=== PATIENT | female | born 1945 | race Caucasian/White ===

== ENCOUNTER 2017-11-16 19:11 | Inpatient (IN) | payer OTHER ==
[2017-11-16 19:19] VITALS: BMI 36.6
--- NOTE | 2017-11-16 19:35 | ED PDOC ---
Arrival/HPI - General Chief Complaint: Eye Problem Time Seen by Provider: 11/16/17 19:21 Historian: Patient, Family - History of Present Illness Narrative History of Present Illness (Text): you were treated in the ED today for hx CHF, HTN, HL, having somewhat longstanding decreased vision in the left eye and for the past 1-2 days having had blurry vision with headache then about 1 hour prior to the ED having had a curtain/shade come over the left eye sensation but otherwise without any nausea/ vomiting/dizziness/difficulty breathing/chest pain/abdomen pain/numbness/ tingling/loss of limb function/pain with urination. 11/16/17 19:42 11/16/17 19:47 Time/Duration: Other (for 1-2 days) Past Medical History - Provider Review Nursing Documentation Reviewed: Yes - Travel History Have you recently traveled outside [place] w/in the past 3 mons?: No - Cardiac Hx Hypertension: Yes - Neurological Hx Dizziness: Yes Other/Comment: weakness - Psychiatric Hx Substance Use: No Family/Social History - Physician Review Nursing Documentation Reviewed: Yes Family/Social History: No Known Family HX Smoking Status: Never Smoked Hx Alcohol Use: No Hx Substance Use: No Allergies/Home Meds Allergies/Adverse Reactions: Allergies No Known Allergies Allergy (Unverified 11/16/17 19:29) Home Medications: Home Meds Medication Instructions Recorded Confirmed Aspirin [Aspirin Chewable] 81 mg PO DAILY 11/16/17 11/16/17 Celecoxib [Celebrex] 100 mg PO DAILY 11/16/17 11/16/17 Clopidogrel [Plavix] 75 mg PO DAILY 11/16/17 11/16/17 DULoxetine [Cymbalta] 30 mg PO DAILY 11/16/17 11/16/17 Famotidine [Pepcid] 20 mg PO DAILY 11/16/17 11/16/17 Furosemide [Lasix] 20 mg PO DAILY 11/16/17 11/16/17 Gabapentin [Neurontin] 300 mg PO DAILY 11/16/17 11/16/17 Lisinopril [Zestril] 10 mg PO DAILY 11/16/17 11/16/17 Meloxicam [Mobic] 7.5 mg PO DAILY 11/16/17 11/16/17 Review of Systems - Review of Systems Constitutional: Normal Eyes: Vision Changes ENT: Normal Respiratory: Normal Cardiovascular: Normal Gastrointestinal: Normal Genitourinary Female: Normal Musculoskeletal: Normal Skin: Normal Neurological: Normal Endocrine: Normal Hemo/Lymphatic: Normal Psychiatric: Normal Physical Exam Vital Signs Reviewed: Yes Vital Signs Temp Pulse Resp BP Pulse Ox 11/16/17 21:35 60 17 106/50 L 98 11/16/17 19:26 98.1 F 68 17 114/58 L 98 Temperature: Afebrile Blood Pressure: Normal Pulse: Regular Respiratory Rate: Normal Appearance: Positive for: Well-Appearing, Non-Toxic, Comfortable Pain Distress: None Mental Status: Positive for: Alert and Oriented X 3 - Systems Exam Head: Present: Atraumatic, Normocephalic Pupils: Present: PERRL Extroacular Muscles: Present: EOMI Conjunctiva: Present: Normal Ears: Present: Normal Mouth: Present: Moist Mucous Membranes Pharnyx: Present: Normal Nose (External): Present: Atraumatic Nose (Internal): Present: Normal Inspection Neck: Present: Normal Range of Motion Respiratory/Chest: Present: Clear to Auscultation Cardiovascular: Present: Regular Rate and Rhythm Abdomen: No: Tenderness, Distention, Normal Bowel Sounds, Peritoneal Signs, Rebound, Guarding, McBurney's Point Tender, Rovsing's Sign Present, Hernias, Feeding Tubes, Ostomy Tubes, Mass/Organomegaly, Scars, Other Back: Present: Normal Inspection Upper Extremity: Present: Normal Inspection Lower Extremity: Present: Normal Inspection Neurological: Present: GCS=15, CN II-XII Intact, Speech Normal, Motor Func Grossly Intact Skin: Present: Warm, Normal Color Psychiatric: Present: Alert, Oriented x 3, Normal Insight, Normal Concentration Medical Decision Making ED Course and Treatment: yfaye were treated in the ED today for hx CHF, HTN, HL, having somewhat longstanding decreased vision in the left eye and for the past 1-2 days having had blurry vision with headache then about 1 hour prior to the ED having had a curtain/shade come over the left eye sensation but otherwise without any nausea/ vomiting/dizziness/difficulty breathing/chest pain/abdomen pain/numbness/ tingling/loss of limb function/pain with urination. You were otherwise breathing easily, talking easily with family/daughter/granddaughter, good strength/sensation, clear lungs, no abdomen tenderness, left eye can visualize but blurry and right eye vision intact without foreign body in either eye on magnification, no left sided temporal area discomfort, no fever temp 98.1, stable heart rate 68, stable breathing rate 17, excellent oxygen level 98% room air, stable blood pressure 114/58 which we recommend repeat in 2-3 days primary care office to determine further treatment, you have blood tests no infection count 8, stable blood level hemoglobin 12/platelets 252, stable chemistry, potassium elevated 5.8 and repeat 5.5, bun elevated 69, creatinine elevated 2.2 from prior 1.1, heart blood test negative less than 0.01, radiology ct head shows atrophy and small vessel disease but no acute intracranial abnormality, ECG normal sinus rhythm, observation done in the ED with stability d/w Dr. Coe neurology who stated since having blurry vision in the past 1-2 days with acute worsening about 1 hour prior to ED visit no code stroke at this time but recommends - ct head and cta head/neck with iv contrast. ct head COMPARISON: There are no prior studies for comparison. FINDINGS: Brain: There is prominence of of sulci gyri and ventricles. There is no midline shift. There is decreased attenuation in periventricular white matter. There are no focal masses. There are no focal hemorrhages. Ortiz-white differentiation is visualized. Ventricles: See above. Bones: Cranial vault is intact. Soft tissues: unremarkable Sinuses: There is no acute sinusitis. Ears and mastoids: Middle ears and mastoids are unremarkable. Orbits: Orbital contents are unremarkable. IMPRESSION: Atrophy and small vessel disease, no acute intracranial abnormality 11/16/17 22:58 d/w Dr. Coe who stated MRI/MRA brain without contrast and can consult in the am. Dw Dr. Jones who stated ESR, can admit to telemetry and agreed with kayexalate for k 5.5, mild gentle hydration ivf, MRI/MRA of brain without contrast and neurology evaluation and he will put in ophthalmology evaluation as well in the am. 11/16/17 23:00 11/16/17 23:03 Reassessment Condition: Re-examined, Unchanged - Lab Interpretations Lab Results: 11/16/17 19:59 11/16/17 20:55 Lab Results 11/16/17 20:55: Potassium 5.5 H 11/16/17 19:59: Sodium 140, Potassium 5.8 H*, Chloride 104, Carbon Dioxide 23, Anion Gap 18, BUN 69 H, Creatinine 2.2 H, Est GFR ( Amer) 27, Est GFR ( Non-Af Amer) 22, Random Glucose 128 H, Calcium 9.5, Magnesium 2.0, Total Bilirubin 0.7, AST 36, ALT 26, Alkaline Phosphatase 128 H, Lactate Dehydrogenase 466, Total Creatine Kinase 80, Troponin I < 0.01, Total Protein 7.2, Albumin 4.2, Globulin 3.0, Albumin/Globulin Ratio 1.4 11/16/17 19:59: PT 11.9, INR 1.04, APTT 29.6 11/16/17 19:59: WBC 8.4, RBC 4.06, Hgb 12.3, Hct 37.3, MCV 91.9, MCH 30.3, MCHC 33.0, RDW 13.1, Plt Count 252, MPV 10.8, Gran % 69.6 H, Lymph % (Auto) 23.2, [facility] % (Auto) 5.5, Eos % (Auto) 1.3 L, Baso % (Auto) 0.4, Gran # 5.84, Lymph # ( Auto) 2.0, [facility] # (Auto) 0.5, Eos # (Auto) 0.1, Baso # (Auto) 0.03 I have reviewed the lab results: Yes - RAD Interpretation Narrative RAD Interpretations (Text): 11/16/17 22:16 CT of head reviewed by radiologist, shows: FINDINGS: Brain: There is prominence of of sulci gyri and ventricles. There is no midline shift. There is decreased attenuation in periventricular white matter. There are no focal masses. There are no focal hemorrhages. Ortiz-white differentiation is visualized. Ventricles: See above. Bones: Cranial vault is intact. Soft tissues: unremarkable Sinuses: There is no acute sinusitis. Ears and mastoids: Middle ears and mastoids are unremarkable. Orbits: Orbital contents are unremarkable. IMPRESSION: Atrophy and small vessel disease, no acute intracranial abnormality Radiology Orders: 11/16/17 19:29 HEAD W/O CONTRAST [CT] Stat 11/16/17 22:50 BRAIN WITHOUT CONTRAST [MRI] Stat MRA HEAD WITHOUT CONTRAST [MRI] Stat Relationship Banker: Radiologist - EKG Interpretation Interpreted by ED Physician: Yes (NSR, RBBB) Type: 12 lead EKG - Medication Orders Current Medication Orders: Sodium Chloride (Sodium Chloride 0.9%) 1,000 mls @ 100 mls/hr IV .Q10H [facility] Last Admin: 11/16/17 22:11 Dose: 100 mls/hr eMAR Start Stop Document 11/16/17 22:11 IT (Rec: 11/16/17 22:11 IT [id number]) Intravenous Solution Start Date 11/16/17 Start Time 22:11 Discontinued Medications Acetaminophen (Tylenol 325mg Tab) 975 mg PO STAT STA Stop: 11/16/17 22:47 Aspirin (Aspirin Chewable) 324 mg PO STAT STA Stop: 11/16/17 22:47 Sodium Polystyrene Sulfonate (Kayexalate Susp) 15 gm PO STAT STA Stop: 11/16/17 22:48 Disposition/Present on Arrival - Present on Arrival Any Indicators Present on Arrival: No History of DVT/PE: No History of Uncontrolled Diabetes: No Urinary Catheter: No History of Decub. Ulcer: No History Surgical Site Infection Following: None - Disposition Have Diagnosis and Disposition been Completed?: Yes Diagnosis: Blurred vision, left eye, Hyperkalemia, Renal insufficiency Disposition: HOSPITALIZED Disposition Time: 23:00 Patient Plan: Admission, Telemetry Condition: IMPROVED Referrals: Johnny Jones MD [Primary Care Provider] - Follow up with primary Forms: [employer] (Pashto)
[2017-11-16 20:23] LABS: BASO # 0.03 K/mm3 (0.0-2.0); BASO % 0.4 % (0.0-3.0); EOS # 0.1 (0.0-0.7); EOS % 1.3 % (1.5-5.0); GRAN # 5.84 (1.4-6.5); GRAN % 69.6 % (50.0-68.0); HEMOGLOBIN 12.3 g/dL (12.0-16.0); LYMPH % 23.2 % (22.0-35.0); MEAN CELL VOLUME 91.9 fl (80.0-105.0); MEAN CORPUSCULAR HEMOGLOBIN 30.3 pg (25.0-35.0); MEAN PLATELET VOLUME 10.8 fl (7.0-11.0); MONO # 0.5 (0.1-0.6); MONO % 5.5 % (1.0-6.0); RBC 4.06 10^6/uL (3.5-6.1); RED CELL DISTRIBUTION WIDTH 13.1 % (11.5-14.5); WHITE BLOOD COUNT 8.4 10^3/ul (4.5-11.0)
[2017-11-16 20:29] LABS: INR 1.04 (0.93-1.08); PARTIAL THROMBOPLASTIN TIME 29.6 Seconds (25.1-36.5); PROTHROMBIN TIME 11.9 SECONDS (9.4-12.5)
[2017-11-16 20:42] LABS: ALB/GLOB RATIO 1.4 (1.1-1.8); ALBUMIN 4.2 g/dL (3.0-4.8); ALT/SGPT 26 U/L (7-56); AST/SGOT 36 U/L (14-36); BLOOD UREA NITROGEN 69 mg/dL (7-21); CALCIUM 9.5 mg/dL (8.4-10.5); GFR AFRICAN-AMERICAN 27; GFR NON-AFRICAN AMERICAN 22; TROPONIN I < 0.01 ng/mL
--- NOTE | 2017-11-16 22:09 | CT ---
EXAM: CT Head Without Intravenous Contrast EXAM DATE/TIME: 11/16/2017 7:29 PM CLINICAL HISTORY: 71 years old, female; Signs and symptoms; Dizziness and visual disturbance; Additional info: 71yof, with left eye blurry vision TECHNIQUE: Axial computed tomography images of the head/brain without intravenous contrast. All CT scans at this facility use at least one of these dose optimization techniques: automated exposure control; mA and/or kV adjustment per patient size (includes targeted exams where dose is matched to clinical indication); or iterative reconstruction. Coronal and sagittal reformatted images were created and reviewed. COMPARISON: There are no prior studies for comparison. FINDINGS: Brain: There is prominence of of sulci gyri and ventricles. There is no midline shift. There is decreased attenuation in periventricular white matter. There are no focal masses. There are no focal hemorrhages. Ortiz-white differentiation is visualized. Ventricles: See above. Bones: Cranial vault is intact. Soft tissues: unremarkable Sinuses: There is no acute sinusitis. Ears and mastoids: Middle ears and mastoids are unremarkable. Orbits: Orbital contents are unremarkable. IMPRESSION: Atrophy and small vessel disease, no acute intracranial abnormality
[2017-11-16] MEDS: Sodium Chloride 0.9% 1,000 ML IV SCH (22:11)
[2017-11-16] MEDS ORDERED: Sod Polystyrene Sulf 15 gm/60 ml Susp PO STA (22:47)
[2017-11-17 00:28] LABS: URINE BILIRUBIN NEGATIVE (NEGATIVE); URINE BLOOD NEGATIVE (NEGATIVE); URINE GLUCOSE (UA) NEGATIVE (NEGATIVE); URINE LEUKOCYTE ESTERASE TRACE Leu/uL (NEGATIVE); URINE PROTEIN NEGATIVE mg/dL (<30 mg/dL); URINE UROBILINOGEN 0.2 E.U./dL (<1 E.U./dL)
[2017-11-17 00:31] LABS: URINE APPEARANCE SLIGHT-CLOUDY (CLEAR); URINE COLOR YELLOW (YELLOW)
[2017-11-17 00:48] LABS: URINE RBC NEGATIVE /hpf (0-2); URINE WBC 0 - 2 /hpf (0-6)
[2017-11-17 00:49] LABS: URINE BACTERIA RARE (NEG)
[2017-11-17] MEDS: Sodium Chloride 0.9% 1,000 ML IV SCH ×2 (07:09→10:00)
--- NOTE | 2017-11-17 10:49 | MRI ---
PROCEDURE: MRI BRAIN WITHOUT CONTRAST HISTORY: 71F w left eye blurry vision COMPARISON: None. TECHNIQUE: Multiplanar, multisequence MR images of the brain were obtained without intravenous contrast enhancement. FINDINGS: HEMORRHAGE: None DWI: No evidence of an acute or early subacute infarction. BRAIN PARENCHYMA: No mass effect or edema. No atrophy or chronic microvascular ischemic changes. VENTRICLES: Unremarkable. No hydrocephalus. CRANIUM: Unremarkable. ORBITS: Grossly unremarkable. PARANASAL SINUSES/MASTOIDS: Clear VASCULAR SYSTEM: Skull base flow voids intact. OTHER FINDINGS: None. IMPRESSION: Unremarkable non contrast enhanced MRI of the brain.
--- NOTE | 2017-11-17 10:53 | MRI ---
PROCEDURE: Magnetic Resonance Angiography Brain HISTORY: 71F with left eye blurry vision COMPARISON: None available. TECHNIQUE: 3D time of flight MR angiography of the intracranial arteries was performed. Rotating maximum intensity projection images were generated. FINDINGS: INTERNAL CAROTID ARTERIES: Unremarkable. The skull base, petrous, cavernous and supraclinoid segments are bilaterally widely patient. ANTERIOR CEREBRAL ARTERIES: Unremarkable. A1 and A2 segments are widely patent. Smaller distal branches unremarkable, as visualized. MIDDLE CEREBRAL ARTERIES: Unremarkable. M1 and M2 segments are widely patent. Perisylvian branches grossly symmetric. POSTERIOR CIRCULATION: Basilar Artery: Unremarkable. Distal Vertebral Arteries: Unremarkable. Posterior Cerebral Arteries: Unremarkable. Posterior Inferior Cerebellar Arteries: Unremarkable. ANEURYSM/ VASCULAR MALFORMATIONS: None. OTHER FINDINGS: None. IMPRESSION: Unremarkable MR angiography of the brain.
--- NOTE | 2017-11-17 13:06 | CARD ---
APPROVED REPORT EKG Measurement Heart [id number] <Conclusion> Normal sinus rhythm Right bundle branch block Abnormal ECG
--- NOTE | 2017-11-17 16:20 | CP.PCM.CON ---
History of Present Illness - History of Present Illness History of Present Illness: Neurology Consult Note: Mrs. Martin is a 71-year-old woman with a past medical history of overactive bladder (started on oxybutinin), arthritis, hypertension, CKD, who has bilateral cateracts, and usually has blurry vision, but it has been worse over the last week. It became especially blurry with a "curtain like" decrease in vision yesterday. She presented to the ED and an MRA of the brain did not show any concern for a thrombus. MRI of the brain was unremarkable. She states that since starting the oxybutinin her vision has been getting worse. She complained of a left sided headache as well that has been ongoing for the last week. Review of Systems - Review of Systems All systems: reviewed and no additional remarkable complaints except Past Patient History - Past Social History Smoking Status: Never Smoked - CARDIAC Hx Cardiac Disorders: Yes Hx Congestive Heart Failure: Yes Hx Hypertension: Yes - PULMONARY Hx Respiratory Disorders: No - NEUROLOGICAL Hx Neurological Disorder: Yes (Neuropathy) - HEENT Hx HEENT Problems: Yes (Left eye decreasing vision since 2016) - RENAL Hx Chronic Kidney Disease: No - ENDOCRINE/METABOLIC Hx Endocrine Disorders: No - HEMATOLOGICAL/ONCOLOGICAL Hx Blood Disorders: No - INTEGUMENTARY Hx Dermatological Problems: Yes (left heel old healed ulcer) - MUSCULOSKELETAL/RHEUMATOLOGICAL Hx Musculoskeletal Disorders: Yes Hx Arthritis: Yes Hx Falls: No Hx Unsteady Gait: Yes (uses walker and cane.) - GASTROINTESTINAL Hx Gastrointestinal Disorders: No - GENITOURINARY/GYNECOLOGICAL Hx Genitourinary Disorders: No - PSYCHIATRIC Hx Psychophysiologic Disorder: No Hx Substance Use: No - SURGICAL HISTORY Hx Surgeries: Yes Hx Cholecystectomy: Yes Hx Orthopedic Surgery: Yes (left knee replacement) Meds Allergies/Adverse Reactions: Allergies Allergy/AdvReac Type Severity Reaction Status Date / Time No Known Allergies Allergy Unverified 11/16/17 19:29 - Medications Medications: Current Medications Duloxetine HCl (Cymbalta) 30 mg PO DAILY [facility] Last Admin: 11/17/17 11:42 Dose: 30 mg Famotidine (Pepcid) 20 mg PO DAILY [facility] Last Admin: 11/17/17 11:42 Dose: 20 mg Gabapentin (Neurontin) 300 mg PO DAILY [facility] PRN Reason: Protocol Last Admin: 11/17/17 11:42 Dose: 300 mg Sodium Chloride (Sodium Chloride 0.9%) 1,000 mls @ 100 mls/hr IV .Q10H [facility] Last Admin: 11/17/17 07:09 Dose: Not Given Oxybutynin Chloride (Ditropan Tab) 5 mg PO DAILY [facility] Last Admin: 11/17/17 11:43 Dose: 5 mg Physical Exam - Neurological Exam Neurological exam: Alert, CN II-XII Intact, Normal Gait, Oriented x3, Reflexes Normal Additional comments: Decreased direct and consensual response to light in the left eye. Bilateral cateracts. EOMI, CN 2-12 intact. Results - Vital Signs Recent Vital Signs: Last Vital Signs Temp 97.8 F 11/17/17 12:00 Pulse 85 11/17/17 14:00 Resp 17 11/17/17 12:00 BP 115/58 L 11/17/17 12:00 Pulse Ox 98 11/17/17 06:00 - Labs Result Diagrams: 11/16/17 19:59 11/16/17 20:55 Labs: Laboratory Results - last 24 hr 11/17/17 00:16 Urine Color Yellow Urine Appearance Slight-cloudy Urine pH 6.0 Ur Specific [place] 1.010 Urine Protein Negative Urine Glucose (UA) Negative Urine Ketones Negative Urine Blood Negative Urine Nitrate Negative Urine Bilirubin Negative Urine Urobilinogen 0.2 Ur Leukocyte Esterase Trace H Urine RBC Negative Urine WBC 0 - 2 Ur Epithelial Cells 3 - 4 Urine Bacteria Rare Assessment & Plan (1) Blurred vision, left eye Assessment and Plan: May be related to antimuscarinic effects of oxybutinin. I recommend holding the medication for now. May also be due to chronic disease. Unlikely to be a retinal artery occlusion. I recommend consultation with ophthalmology for a dilated exam. Thank you. Status: Acute
[2017-11-17] MEDS ORDERED: Sod Polystyrene Sulf 15 gm/60 ml Susp PO ONE (20:33)
[2017-11-18] MEDS: Sodium Chloride 0.9% 1,000 ML IV SCH ×4 (00:05→12:05)
[2017-11-18 02:33] LABS: CREATININE,RANDOM URINE 51 mg/dL
[2017-11-18 07:17] LABS: ALB/GLOB RATIO 1.3 (1.1-1.8); ALBUMIN 3.3 g/dL (3.0-4.8); CALCIUM 8.2 mg/dL (8.4-10.5)
--- NOTE | 2017-11-18 08:21 | CON ---
DATE: 11/17/2017 HISTORY OF PRESENT ILLNESS: The patient is a 71-year-old female with history of high blood pressure and high cholesterol. She reports that within the last couple of days, she has noticed a hawk veil or covering to her left eye which was painless. She noticed no issue with her right eye. PHYSICAL EXAMINATION: Her vision in the right eye is about 20/400 near, left eye is count fingers near. She has no pupillary defect. On slit-lamp exam, the right eye has clear cornea, clear anterior chamber, 2+nuclear cataract. She does have appearance of a myopic fundus. The nerve is pink and healthy. Her retina is attached. There is no arterial or venous blockage noted. On her left eye, she has a very large cataract, 2+nuclear sclerotic but 4+posterior subcapsular. Her posterior exam appears within normal limits. Retina appears attached. The vasculature appears within normal limits. Her eye pressure in both eyes are within normal limits. ASSESSMENT: Cataracts, both eyes. Very large cataract in the left eye. PLAN: Once the patient is discharged, the patient will need to be seen in the office. She will most likely need cataract surgery for her left eye to improve the vision. We can also refer her to a retina specialist if there is any issue with the nerve or the blood vessels in the eye. Any questions, you can always call [phone]. Wilman Sr MD
[2017-11-18] MEDS ORDERED: Sodium Chloride 0.9% 250 ML IV STA (11:38)
[2017-11-18] MEDS: Enoxaparin 40 mg Syringe SC SCH (12:04)
--- NOTE | 2017-11-18 13:40 | CP.PCM.CON ---
History of Present Illness - History of Present Illness History of Present Illness: renal consult note cc: anca hpi: hx obtained from daughter as patient non zimbabwean speaking. 71-year-old woman with a past medical history of overactive bladder (started on oxybutinin) , arthritis, hypertension, bilateral cateracts is admitted with blurry vision for over a week. no headache. no prior hx of ckd pe daughter. no edema or sob on admission noted to have anca cr 2.2 and potassium was elevated, has been getting iv fluids and now cr is normal complete ros is negative f/h negative for kidney disease social hx non smoker no alcohol pmh as above exam vss heent normal op moist no jvd skin normal no icterus s1s2 present no resp distress abbd soft obese ao times 3 normal affect A&P: anca/hyperkalemia/htn/vision loss cr is improving, ua unremarkable continue with iv fluids i have ordered a renal USG low potassium diet, she was on lasix and lisinopril at home, recommend stopping lisinopril on discharge continue to hold lasix for now vision issues: per primary team Past Patient History - Past Social History Smoking Status: Never Smoked - CARDIAC Hx Cardiac Disorders: Yes (CO X 2 times ( 1992, 2007)) - PULMONARY Hx Respiratory Disorders: No - NEUROLOGICAL Hx Neurological Disorder: Yes (Neuropathy) - HEENT Hx HEENT Problems: Yes (Left eye decreasing vision since 2016) - RENAL Hx Chronic Kidney Disease: No - ENDOCRINE/METABOLIC Hx Endocrine Disorders: No - HEMATOLOGICAL/ONCOLOGICAL Hx Blood Disorders: No - INTEGUMENTARY Hx Dermatological Problems: Yes (left heel old healed ulcer) - MUSCULOSKELETAL/RHEUMATOLOGICAL Hx Musculoskeletal Disorders: Yes Hx Arthritis: Yes Hx Falls: No Hx Unsteady Gait: Yes (uses walker and cane.) - GASTROINTESTINAL Hx Gastrointestinal Disorders: No - GENITOURINARY/GYNECOLOGICAL Hx Genitourinary Disorders: No - PSYCHIATRIC Hx Psychophysiologic Disorder: No Hx Substance Use: No - SURGICAL HISTORY Hx Surgeries: Yes Hx Cholecystectomy: Yes Hx Orthopedic Surgery: Yes (left knee replacement) Meds Allergies/Adverse Reactions: Allergies Allergy/AdvReac Type Severity Reaction Status Date / Time No Known Allergies Allergy Unverified 11/16/17 19:29 - Medications Medications: Current Medications Duloxetine HCl (Cymbalta) 30 mg PO DAILY [facility] Last Admin: 11/18/17 09:29 Dose: 30 mg Enoxaparin Sodium (Lovenox) 40 mg SC DAILY [facility] PRN Reason: Protocol Last Admin: 11/18/17 12:04 Dose: 40 mg Famotidine (Pepcid) 20 mg PO DAILY [facility] Last Admin: 11/18/17 09:29 Dose: 20 mg Gabapentin (Neurontin) 300 mg PO DAILY [facility] PRN Reason: Protocol Last Admin: 11/18/17 09:29 Dose: 300 mg Sodium Chloride (Sodium Chloride 0.9%) 1,000 mls @ 100 mls/hr IV .Q10H [facility] Last Admin: 11/18/17 12:05 Dose: 100 mls/hr Oxybutynin Chloride (Ditropan Tab) 5 mg PO DAILY [facility] Last Admin: 11/17/17 11:43 Dose: 5 mg Tramadol HCl (Ultram) 50 mg PO Q8 PRN PRN Reason: Pain, moderate (4-7) Last Admin: 11/18/17 06:00 Dose: 50 mg Results - Vital Signs Recent Vital Signs: Last Vital Signs Temp 98.3 F 11/18/17 11:47 Pulse 77 11/18/17 11:47 Resp 18 11/18/17 11:47 BP 84/39 L 11/18/17 11:47 Pulse Ox 97 11/18/17 06:00 - Labs Result Diagrams: 11/16/17 19:59 11/18/17 06:30 Labs: Laboratory Results - last 24 hr 11/17/17 11/17/17 11/18/17 19:25 23:46 06:30 Sodium 140 Potassium 5.2 H 5.0 Chloride 108 H Carbon Dioxide 21 Anion Gap 16 BUN 40 H Creatinine 1.2 Est GFR ( Amer) 53 Est GFR (Non-Af Amer) 44 Random Glucose 87 Calcium 8.2 L Total Bilirubin 0.6 AST 22 ALT 25 Alkaline Phosphatase 80 Total Protein 5.9 Albumin 3.3 Globulin 2.6 Albumin/Globulin Ratio 1.3 Ur Random Creatinine 51 Ur Random Sodium 110
--- NOTE | 2017-11-18 19:25 | US ---
HISTORY: Leg pain and swelling. Evaluate for DVT PHYSICIAN(S): Dylan Ryan MD. TECHNIQUE: Duplex sonography and color-flow Doppler with graded compression were used to evaluate the deep venous systems of both lower extremities. FINDINGS: The visualized deep venous systems of both lower extremities are sonographically normal and compressible. Normal wave forms and augmentation are seen. There is no sonographic evidence for deep venous thrombosis in the visualized segments of both lower extremities. IMPRESSION: No sonographic evidence for deep venous thrombosis in the visualized segments of both lower extremities.
--- NOTE | 2017-11-18 21:07 | HP ---
The patient was seen on 11/17/2017. REASON FOR ADMISSION: Headache, left eye visual disturbance, and feeling weak. HISTORY OF PRESENT ILLNESS: A 71-year-old female with history of hypertension, chronic back pain, multiple disk disease, osteoarthritis of both knees, morbid obesity, came in to the hospital because of blurry visions that got worse over the last 2 days, which also associated with generalized headache for the last 1 or 2 weeks. The patient has no nausea, no vomiting. The patient also feels generally weak. There is no other complaint. No nausea, vomiting, or diarrhea. No fever, chills, or cough. No focal weakness. PAST MEDICAL HISTORY: As I mentioned before, morbid obesity, hypertension, osteoarthritis, disk disease in the lumbosacral area, peripheral neuropathy, gait disorders, urine incontinence. HOME MEDICATIONS: She takes oxybutynin 5 mg daily, Lasix 20 mg p.o. daily, Pepcid 20 mg p.o. daily, Plavix 75 mg daily, aspirin 81 mg daily, Mobic 7.5 mg p.o. daily, Zestril 10 mg p.o. daily, Neurontin 300 mg p.o. daily, Cymbalta 30 mg p.o. daily, Celebrex 100 mg p.o. daily. Unclear whether she takes both Celebrex and Mobic together. ALLERGIES: NO KNOWN ALLERGIES. SOCIAL HISTORY: No smoking. No drinking. She lives with daughter. FAMILY HISTORY: Noncontributory. REVIEW OF SYSTEMS: As in the present illness. Gait disorder, chronic back pain, chronic knee pain, chronic sciatica, urine incontinence. No constipation. PHYSICAL EXAMINATION: GENERAL: The patient is alert, awake, and oriented. VITAL SIGNS: Temperature is 97.8, heart rate 67, blood pressure 115/58, respirations 17, sat 98%. HEAD AND NECK: Normal. No JVD. No thyromegaly. CHEST: Clear bilaterally. CARDIAC: First sound and second sound normal. ABDOMEN: Soft, nontender, and obese. EXTREMITIES: No edema. NEUROLOGIC: Normal. Her left eye vision is diminished. LABORATORY STUDY: White count 8.4, hemoglobin 12.3, hematocrit 37.3, and platelets 252. Chemistry shows sodium 140, potassium 5.8, chloride 104, bicarb 23. BUN 69, creatinine 2.2. Blood sugar 128. Liver function test is normal. Troponin is negative. CT of the head was reported as negative. Small vessel disease. No bleeding. No acute intracranial abnormality. IMPRESSION AND PLAN: A 71-year-old female, complained of headache, left eye visual loss, got worse over the last 1 or 2 days. The patient has also weakness. The laboratory study shows high creatinine. The patient is on Lasix. 1. Headache, loss of vision. We will rule out temporal arteritis with negative pain on palpation of the temporal area, but we will get a sedimentation rate and we will get Ophthalmology consultation to look at it. 2. Acute renal failure. Give IV fluid. We will hold off enalapril for now. Renal consult. 3. Headache with blurry vision. Get Neurology consultation also. 4. History of morbid obesity, chronic back pain, osteoarthritis. We will hold off on any nonsteroidal and we will follow up clinically. We will continue current medications. We will give her tramadol for pain, and continue gabapentin and Cymbalta for pain. Repeat lab in the morning. Follow up with the renewable energy consultant. Johnny Jones MD
[2017-11-19 03:28] VITALS: TEMP 98.1; O2SAT 98
--- NOTE | 2017-11-19 09:41 | CP.PCM.PN ---
Subjective - Date & Time of Evaluation Date of Evaluation: 11/19/17 Time of Evaluation: 09:39 - Subjective Subjective: NEPHROLOGY FOLLOWUP S: She feels ok she has no complaitns today o:vs as below gen: nad heent NCAT, poor dentition neck: no thyromegaly supple cv: +s1+s2 no rub lungs cta abd: soft, distended obese no edema neuro: a=Ox3 psych:nml affect skin no rash A&P: aurora/hyperkalemia/htn/vision loss AURORA resolving UA bland cr is improving, ua unremarkable renal us read pending, reviewed imaging continue to hold courtney i Objective - Vital Signs/Intake and Output Vital Signs (last 24 hours): Temp Pulse Resp BP Pulse Ox 98.1 F 63 18 113/59 L 98 11/19/17 00:01 11/19/17 04:27 11/19/17 00:01 11/19/17 00:01 11/19/17 00:01 Intake and Output: 11/19/17 11/19/17 06:59 18:59 Intake Total 1440 Output Total 1200 Balance 240 - Medications Medications: Current Medications Acetaminophen (Tylenol 325mg Tab) 650 mg PO Q6H PRN PRN Reason: Pain, Mild (1-3) Last Admin: 11/18/17 20:41 Dose: 650 mg Duloxetine HCl (Cymbalta) 30 mg PO DAILY [facility] Last Admin: 11/18/17 09:29 Dose: 30 mg Enoxaparin Sodium (Lovenox) 40 mg SC DAILY [facility] PRN Reason: Protocol Last Admin: 11/18/17 12:04 Dose: 40 mg Famotidine (Pepcid) 20 mg PO DAILY [facility] Last Admin: 11/18/17 09:29 Dose: 20 mg Gabapentin (Neurontin) 300 mg PO DAILY [facility] PRN Reason: Protocol Last Admin: 11/18/17 09:29 Dose: 300 mg Sodium Chloride (Sodium Chloride 0.9%) 1,000 mls @ 100 mls/hr IV .Q10H [facility] Last Admin: 11/18/17 12:05 Dose: 100 mls/hr Oxybutynin Chloride (Ditropan Tab) 5 mg PO DAILY [facility] Last Admin: 11/17/17 11:43 Dose: 5 mg Tramadol HCl (Ultram) 50 mg PO Q8 PRN PRN Reason: Pain, moderate (4-7) Last Admin: 11/18/17 06:00 Dose: 50 mg - Labs Labs: 11/18/17 06:30 PT 11.9 SECONDS (9.4-12.5) 11/16/17 19:59 INR 1.04 (0.93-1.08) 11/16/17 19:59 APTT 29.6 Seconds (25.1-36.5) 11/16/17 19:59
[2017-11-19] MEDS: Enoxaparin 40 mg Syringe SC SCH (09:50)
[2017-11-19] MEDS: Sodium Chloride 0.9% 1,000 ML IV SCH (10:26)
--- NOTE | 2017-11-19 11:57 | US ---
PROCEDURE: Ultrasound of the Kidneys HISTORY: anca COMPARISON: None available. TECHNIQUE: Sonogram of the kidneys. FINDINGS: RIGHT KIDNEY: Measures: 9.5 x 4.0 x 4.3 cm. Normal in size, contour and echogenicity. No stone, solid mass lesion or hydronephrosis visualized. LEFT KIDNEY: Left kidney slightly atrophic compared to the left side measuring approximately 8.4 x 3.1 x 3.90 cm. No stone, solid mass lesion or hydronephrosis visualized. OTHER FINDINGS: None. IMPRESSION: Mild left renal atrophy.
[2017-11-19 12:11] VITALS: BP 113/68; PULSE 72; RESP 20
--- NOTE | 2017-11-19 12:21 | CP.PCM.CON ---
<Rodrigo Peguero - Last Filed: 11/19/17 12:16> History of Present Illness - History of Present Illness History of Present Illness: Podiatry Consult Note: Dr. Browning/Dr. Ocasio 71 year old female patient with PMHx of arthritis, hypertension, CKD, PVD was seen and evaluated at bedside for left toe pain. Patient is seen with a family member at bedside. Family member states that she was admitted to the hospital because she had hard time seeing things and has "curtain like" decrease in vision. Family member reports that she use to have an ulcer on the back of the heel but has healed now. Reports that her toes sometimes cause pain and her foot swells up. Reports that she follows up with a centrifugal station operator as an outpatient on regular basis. Patient denies of having any pain today. Denies of any other pedal complains at this time. Denies of any recent F/N/V/C/SOB/CP/headaches. Review of Systems - Constitutional Constitutional: As Per HPI Past Patient History - Past Social History Smoking Status: Never Smoked - CARDIAC Hx Cardiac Disorders: Yes (IN X 2 times ( 1992, 2007)) - PULMONARY Hx Respiratory Disorders: No - NEUROLOGICAL Hx Neurological Disorder: Yes (Neuropathy) - HEENT Hx HEENT Problems: Yes (Left eye decreasing vision since 2016) - RENAL Hx Chronic Kidney Disease: No - ENDOCRINE/METABOLIC Hx Endocrine Disorders: No - HEMATOLOGICAL/ONCOLOGICAL Hx Blood Disorders: No - INTEGUMENTARY Hx Dermatological Problems: Yes (left heel old healed ulcer) - MUSCULOSKELETAL/RHEUMATOLOGICAL Hx Musculoskeletal Disorders: Yes Hx Arthritis: Yes Hx Falls: No Hx Unsteady Gait: Yes (uses walker and cane.) - GASTROINTESTINAL Hx Gastrointestinal Disorders: No - GENITOURINARY/GYNECOLOGICAL Hx Genitourinary Disorders: No - PSYCHIATRIC Hx Psychophysiologic Disorder: No Hx Substance Use: No - SURGICAL HISTORY Hx Surgeries: Yes Hx Cholecystectomy: Yes Hx Orthopedic Surgery: Yes (left knee replacement) Meds Home Medications: Home Medication List Medication Instructions Recorded Confirmed Type Acetaminophen [Tylenol 325mg tab] 650 mg PO Q6H PRN tab 11/19/17 Rx Lisinopril [Zestril] 5 mg PO DAILY 30 Days #30 11/19/17 11/16/17 Rx traMADol [Ultram] 50 mg PO Q8 PRN 3 Days #15 tab 11/19/17 Rx Allergies/Adverse Reactions: Allergies Allergy/AdvReac Type Severity Reaction Status Date / Time No Known Allergies Allergy Unverified 11/16/17 19:29 - Medications Medications: Current Medications Acetaminophen (Tylenol 325mg Tab) 650 mg PO Q6H PRN PRN Reason: Pain, Mild (1-3) Last Admin: 11/18/17 20:41 Dose: 650 mg Duloxetine HCl (Cymbalta) 30 mg PO DAILY [facility] Last Admin: 11/19/17 09:51 Dose: 30 mg Enoxaparin Sodium (Lovenox) 40 mg SC DAILY [facility] PRN Reason: Protocol Last Admin: 11/19/17 09:50 Dose: 40 mg Famotidine (Pepcid) 20 mg PO DAILY [facility] Last Admin: 11/19/17 09:52 Dose: 20 mg Gabapentin (Neurontin) 300 mg PO DAILY [facility] PRN Reason: Protocol Last Admin: 11/19/17 09:51 Dose: 300 mg Sodium Chloride (Sodium Chloride 0.9%) 1,000 mls @ 100 mls/hr IV .Q10H [facility] Last Admin: 11/19/17 10:26 Dose: 100 mls/hr Oxybutynin Chloride (Ditropan Tab) 5 mg PO DAILY [facility] Last Admin: 11/17/17 11:43 Dose: 5 mg Tramadol HCl (Ultram) 50 mg PO Q8 PRN PRN Reason: Pain, moderate (4-7) Last Admin: 11/18/17 06:00 Dose: 50 mg Physical Exam - Constitutional Appears: Well, Non-toxic, No Acute Distress - Extremities Exam Additional comments: LLE focused exam VASC: DP pulses are palpable 1/4, PT pulses are non palpable, Cap refill time: < 3 sec to all digits, Temp gradient: cool to cool from proximal to distal, mild non-pitting phani-malleolar edema noted DERM: no open lesions, diffuse hyperkeratotic lesion noted, increase in erythema during depend position on the foot which decreases with elevation, healed ulcer site noted on the posterior heel, no clinical suspicion of active infection NEURO: Protective sensation diminished ORTHO: very minimal pain on deep palpation of the hallux and 2nd digit - Neurological Exam Neurological exam: Alert, Oriented x3 - Psychiatric Exam Psychiatric exam: Normal Affect, Normal Mood Results - Vital Signs Recent Vital Signs: Last Vital Signs Temp 98.1 F 11/19/17 12:00 Pulse 72 11/19/17 12:00 Resp 20 11/19/17 12:00 BP 113/68 11/19/17 12:00 Pulse Ox 98 11/19/17 00:01 - Labs Result Diagrams: 11/16/17 19:59 11/18/17 06:30 Assessment & Plan - Assessment and Plan (Free Text) Assessment: 71 year old female evaluated for pain to left foot secondary to PVD Plan: Patient seen and evaluated Discussed plan with attending Dr. Browning Labs, vitals and charts reviewed Erythema and edema resolves with elevation - educated patient to keep the legs elevated when possible Educated patient to wear compression socks during day time Pain is most-likely secondary to PVD JAKY ordered Thank you for the podiatry consult and allowing to take part in patient care Will monitor patient while in-house - Date & Time Date: 11/19/17 Time: 12:28 <Luis Alberto Browning - Last Filed: 11/19/17 13:40> Meds - Medications Medications: Current Medications Acetaminophen (Tylenol 325mg Tab) 650 mg PO Q6H PRN PRN Reason: Pain, Mild (1-3) Last Admin: 11/18/17 20:41 Dose: 650 mg Duloxetine HCl (Cymbalta) 30 mg PO DAILY [facility] Last Admin: 11/19/17 09:51 Dose: 30 mg Enoxaparin Sodium (Lovenox) 40 mg SC DAILY [facility] PRN Reason: Protocol Last Admin: 11/19/17 09:50 Dose: 40 mg Famotidine (Pepcid) 20 mg PO DAILY [facility] Last Admin: 11/19/17 09:52 Dose: 20 mg Gabapentin (Neurontin) 300 mg PO DAILY [facility] PRN Reason: Protocol Last Admin: 11/19/17 09:51 Dose: 300 mg Sodium Chloride (Sodium Chloride 0.9%) 1,000 mls @ 100 mls/hr IV .Q10H [facility] Last Admin: 11/19/17 10:26 Dose: 100 mls/hr Oxybutynin Chloride (Ditropan Tab) 5 mg PO DAILY [facility] Last Admin: 11/17/17 11:43 Dose: 5 mg Tramadol HCl (Ultram) 50 mg PO Q8 PRN PRN Reason: Pain, moderate (4-7) Last Admin: 11/18/17 06:00 Dose: 50 mg Results - Vital Signs Recent Vital Signs: Last Vital Signs Temp 98.1 F 11/19/17 12:00 Pulse 72 11/19/17 12:00 Resp 20 11/19/17 12:00 BP 113/68 11/19/17 12:00 Pulse Ox 98 11/19/17 00:01 - Labs Result Diagrams: 11/16/17 19:59 11/18/17 06:30 Attending/Attestation - Attestation I have personally seen and examined this patient.: Yes I have fully participated in the care of the patient.: Yes I have reviewed all pertinent clinical information: Yes
--- NOTE | 2017-11-20 05:04 | PN ---
DATE: 11/18/2017 SUBJECTIVE: Patient is comfortable, in no distress. Blood pressure is up, now 110/70. She had episode of low blood pressure in the 85. Otherwise, she is stable. No chest pain. No short of breath. PHYSICAL EXAMINATION: VITAL SIGNS: Temperature 98.3; heart rate 77; blood pressure was 84/39, it went up to 111/52; respiratory rate 11, saturating 95% on room air. HEAD AND NECK: Normal. No JVD. No thyromegaly. CHEST: Clear bilaterally. CARDIAC: First sound and second sound normal. ABDOMEN: Soft, nontender, and obese. EXTREMITIES: No edema. NEUROLOGIC: Normal. Venous Doppler ultrasound both legs negative. Patient feels better. Creatinine is improved. Patient had a sed rate 42. Her BUN is 40, creatinine 1.2, improved. Normalized kidney function. Liver function test is normal. Sodium 140, potassium is 5, chloride 108, bicarb 21. IMPRESSION AND PLAN: 1. Acute renal failure, improved. We are going to discontinue Lasix. We are not going to go back on that. Enalapril, we may need to reduce if the blood pressure continued to be low and maybe we will change it to Altace if the patient shows blood pressure continued to be on the borderline. 2. Hypertension, osteoarthritis, chronic back pain, multiple degenerative disk disease, disk prolapse, morbid obesity. PLAN: Continue current medications. Patient's current medicines are Cymbalta 30 mg daily, Ditropan once a day, Lovenox 40 subcu daily, Neurontin 300 p.o. daily, Pepcid 20 p.o. daily, IV fluid 100 mL per hour, Tylenol p.r.n., tramadol 50 mg every 8 hours p.r.n. We will continue current therapy. We will follow up clinically. Johnny Jones MD
--- NOTE | 2017-11-22 16:07 | DS ---
HISTORY OF PRESENT ILLNESS: The patient did well. She came in with acute renal injury. Her creatinine 2.2; with IV hydration, creatinine got better. She is off Lasix now, advised not to use it. For leg edema, just keep her leg elevated. Patient is stable, comfortable, in no distress. Her urinalysis came back negative. Cultures are negative and advised not to take any Celebrex or Mobic. Patient is hemodynamically stable. Her Zestril was reduced to 5 mg daily. PHYSICAL EXAMINATION: VITAL SIGNS: Temperature 98.1, heart rate 72, blood pressure 113/68, respirations 20. HEAD AND NECK: Normal. No JVD. No thyromegaly. CHEST: Clear bilaterally. CARDIAC: First sound and second sound normal. ABDOMEN: Soft, obese, nontender. EXTREMITIES: No edema. NEUROLOGIC: Normal. Also during hospital, she had a CT of the head, was negative. MRI of the brain and MRA was negative. She was found to have visual loss due to cataract. She had sedimentation rate which was low at 48 and her headache seems better. DATA: Her laboratory study shows sodium 140, potassium 5, chloride 108, bicarb 21. BUN 40, creatinine 1.2. Liver function test is normal. IMPRESSION AND PLAN: 1. Acute renal failure secondary to pre-renal, probably dehydration, off Lasix, off nonsteroidal. 2. Bladder dysfunction, she can go back ____. 3. Morbid obesity. 4. Hypotension, decreased enalapril to 5 mg daily, I will monitor the blood pressure. If continued to be low, we will stop the enalapril. I did discuss with the daughter the information. 5. Chronic osteoarthritis, chronic back pain. Followup with the Pain Management for epidural injections, physical therapy. She can use tramadol p.r.n. for pain, Tylenol p.r.n. for pain, baby aspirin 81, Plavix 75, Pepcid 20 once a day and Cymbalta 30 mg daily plus Neurontin 300 mg b.i.d. Discharge to home. Johnny Jones MD
== END 2017-11-19 16:53 | disposition home or self-care (01) | DRG 535 ==
LOC: ED 19:11 → ERH 22:55 → 2RNO 11-17 00:37
PROVIDERS: ADMIT Internal Medicine; ATTEND Internal Medicine
DX: H25.13 Age-related nuclear cataract, bilateral (principal); N17.9 Acute kidney failure, unspecified; I13.0 Hypertensive heart and chronic kidney disease with heart failure and stage 1 through stage 4 chronic kidney disease, or unspecified chronic kidney disease; I50.9 Heart failure, unspecified; E87.5 Hyperkalemia; N18.9 Chronic kidney disease, unspecified; H53.8 Other visual disturbances; E66.01 Morbid (severe) obesity due to excess calories; M19.90 Unspecified osteoarthritis, unspecified site; G62.9 Polyneuropathy, unspecified; G89.29 Other chronic pain; M54.9 Dorsalgia, unspecified; M51.37 Other intervertebral disc degeneration, lumbosacral region; N32.81 Overactive bladder; M51.27 Other intervertebral disc displacement, lumbosacral region; I73.9 Peripheral vascular disease, unspecified; M79.672 Pain in left foot; Z96.652 Presence of left artificial knee joint; E78.00 Pure hypercholesterolemia, unspecified; I45.10 Unspecified right bundle-branch block; M17.0 Bilateral primary osteoarthritis of knee; I25.2 Old myocardial infarction; Z79.02 Long term (current) use of antithrombotics/antiplatelets; Z68.41 Body mass index [BMI] 40.0-44.9, adult

== ENCOUNTER 2018-05-14 16:11 | Inpatient (IN) | payer OTHER ==
[2018-05-14 17:14] LABS: BASO # 0.02 K/mm3 (0.0-2.0); BASO % 0.2 % (0.0-3.0); EOS # 0.1 (0.0-0.7); EOS % 0.8 % (1.5-5.0); GRAN # 6.49 (1.4-6.5); GRAN % 74.9 % (50.0-68.0); HEMOGLOBIN 11.6 g/dL (12.0-16.0); LYMPH # 1.7 (1.2-3.4); LYMPH % 19.1 % (22.0-35.0); MEAN CELL VOLUME 101.4 fl (80.0-105.0); MEAN CORPUSCULAR HGB CONC 31.5 g/dl (31.0-37.0); MEAN PLATELET VOLUME 10.2 fl (7.0-11.0); MONO # 0.4 (0.1-0.6); RBC 3.63 10^6/uL (3.5-6.1); RED CELL DISTRIBUTION WIDTH 14.8 % (11.5-14.5); WHITE BLOOD COUNT 8.7 10^3/uL (4.5-11.0)
--- NOTE | 2018-05-14 17:19 | RAD ---
Date of service: 05/14/2018 HISTORY: Bilateral lower extremity edema COMPARISON: 11/17/2012 FINDINGS: LUNGS: No active pulmonary disease. PLEURA: No significant pleural effusion identified, no pneumothorax apparent. CARDIOVASCULAR: No atherosclerotic calcification present Normal. OSSEOUS STRUCTURES: No significant abnormalities. VISUALIZED UPPER ABDOMEN: Normal. OTHER FINDINGS: None. IMPRESSION: No active disease. No significant interval change compared to the prior examination(s).
[2018-05-14 17:52] LABS: B-TYPE NATRIURETIC PEPTIDE 2660 pg/mL (0-450); TROPONIN I < 0.01 ng/mL
--- NOTE | 2018-05-14 17:53 | ED PDOC ---
Arrival/HPI - General Chief Complaint: Weakness/Neurological Deficit Time Seen by Provider: 05/14/18 16:23 Historian: Patient, Family (Daughter), Crane Manager (Daughter) - History of Present Illness Narrative History of Present Illness (Text): 05/14/18 17:53 A 72 year old female, whose past medical history includes CHF and hypertension, presents to the emergency department, accompanied by family, complaining of bilateral edema for the past month. Patient's daughter reports swelling has gotten progressively worse through the last month and the patient has gained a significant amount of weight in that past 2 months from 187 lbs. to 237 lbs. Per patient's daughter, patient has a wound on her left heel and draining on her right leg. Patient's daughter states patient has been experiencing associated chest pain radiating to her left arm, shortness of breath, chills, dyspnea on exertion, and a cough. Patient's daughter states the patient's primary care doctor urged the patient to go to the ER for an evaluation. Patient denies any fever, diarrhea, nausea, vomiting, urinary symptoms, back pain, neck pain, headache, dizziness, or any other complaints. PMD: Dr. Jones Metallographer: Dr. Moore Time/Duration: < month Symptom Onset: Gradual Symptom Course: Unchanged Activities at Onset: Light Context: Home Past Medical History - Provider Review Nursing Documentation Reviewed: Yes - Cardiac Hx Cardiac Disorders: Yes (RI X 2 times ( 1992, 2007)) - Pulmonary Hx Respiratory Disorders: No - Neurological Hx Neurological Disorder: Yes (Neuropathy) - HEENT Hx HEENT Disorder: Yes (Left eye decreasing vision since 2016) - Renal Hx Renal Disorder: No - Endocrine/Metabolic Hx Endocrine Disorders: No - Hematological/Oncological Hx Blood Disorders: No - Integumentary Hx Dermatological Disorder: Yes (left heel old healed ulcer) - Musculoskeletal/Rheumatological Hx Musculoskeletal Disorders: Yes Hx Arthritis: Yes Hx Falls: No Hx Unsteady Gait: Yes (uses walker and cane.) - Gastrointestinal Hx Gastrointestinal Disorders: No - Genitourinary/Gynecological Hx Genitourinary Disorders: No - Psychiatric Hx Psychophysiologic Disorder: No Hx Substance Use: No - Surgical History Hx Cholecystectomy: Yes Hx Orthopedic Surgery: Yes (left knee replacement) - Anesthesia Hx Anesthesia: Yes Hx Anesthesia Reactions: No Hx Malignant Hyperthermia: No Family/Social History - Physician Review Nursing Documentation Reviewed: Yes Family/Social History: No Known Family HX Smoking Status: Never Smoked Hx Alcohol Use: No Hx Substance Use: No Allergies/Home Meds Allergies/Adverse Reactions: Allergies No Known Allergies Allergy (Unverified 11/16/17 19:29) Home Medications: Home Meds Medication Instructions Recorded Confirmed RX: Aspirin [Aspirin Chewable] 81 mg PO DAILY 11/16/17 05/15/18 RX: Clopidogrel [Plavix] 75 mg PO DAILY 11/16/17 05/15/18 RX: DULoxetine [Cymbalta] 30 mg PO DAILY 11/16/17 05/15/18 RX: Famotidine [Pepcid] 40 mg PO DAILY 11/16/17 05/15/18 RX: Gabapentin [Neurontin] 300 mg PO TID 11/16/17 05/15/18 RX: Oxybutynin [Ditropan Tab] 5 mg PO DAILY 11/17/17 05/15/18 Amitriptyline 05/15/18 Bisoprolol [Zebeta] 2.5 mg PO DAILY 05/15/18 05/15/18 Furosemide [Lasix] 20 mg PO QOTHERDAY 05/15/18 05/15/18 RX: Lisinopril [Zestril] 10 mg PO DAILY 05/15/18 05/15/18 RX: Lovastatin 20 mg PO DAILY 05/15/18 05/15/18 Review of Systems - Physician Review All systems were reviewed & negative as marked: Yes - Review of Systems Constitutional: Other (chills). absent: Fevers Respiratory: SOB, Cough Cardiovascular: Chest Pain, DAVIS Gastrointestinal: absent: Diarrhea, Nausea, Vomiting Musculoskeletal: Other (bilateral leg swelling). absent: Back Pain, Neck Pain Neurological: absent: Headache, Dizziness Physical Exam - Physical Exam Narrative Physical Exam (Text): 05/14/18 18:27 PE: Gen: NAD, cooperative, well appearing, non-toxic. Head: NCAT. HEENT: EYES: PERRL, EOMI, conjunctiva clear, MOUTH: moist MM, posterior pharynx without erythema or exudate, uvula midline. CV: (+) S1S2, RRR, no M/G/R LUNGS: CTA B/L, No W/R/R, sligth crackles. Abd: Soft, NTTP, no guarding, rebound or rigidity. Neuro: AAO x 3, GCS 15, CN 2-12 intact, motor and sensory grossly intact, 5/5 muscle strength B/L UE's and LE's. ext: +2 pitting edema to legs bilaterally, weeping to right leg. Vital Signs Reviewed: Yes Vital Signs Temp Pulse Resp BP Pulse Ox 05/14/18 16:23 98.1 F 82 16 123/56 L 100 Temperature: Afebrile Blood Pressure: Hypotensive Pulse: Regular Respiratory Rate: Normal Appearance: Positive for: Non-Toxic Medical Decision Making ED Course and Treatment: 05/14/18 17:57 Impression: 72 year old female presents to the emergency department complaining of bilateral edema. Plan: -- EKG -- Blood culture -- Culture wound -- Urinalysis -- Lower extremity ultrasound -- Reassess and disposition Prior Visits: Notes and results from previous visits were reviewed. Progress Notes: 05/14/18 17:57 EKG: Ordered, reviewed, and independently interpreted the EKG. Rate : 86 BPM Rhythm : sinus arrhythmia Interpretation : Incomplete Right bundle branch block, no ST-segment elevations or depressions, non specific T-wave inversions, normal intervals. 05/14/18 18:13 Procedure: Chest X-ray Time: 05/14/2018 17:15:47 Dictator: Mikal Villanueva MD Impression: No active disease. No significant interval change compared to the prior examination(s). 05/14/18 19:[address] Jones who is aware and agreed to admit patient to telemetry and administer nebulizer and lasix treatment. - Lab Interpretations Lab Results: 05/14/18 17:03 05/14/18 17:03 Lab Results 05/14/18 17:03: Sodium Pending, Potassium Pending, Chloride Pending, Carbon Dioxide Pending, Anion Gap Pending, BUN Pending, Creatinine Pending, Est GFR ( Amer) Pending, Est GFR (Non-Af Amer) Pending, Random Glucose Pending, Calcium Pending, Magnesium Pending, Lactate Dehydrogenase Pending, Total Creatine Kinase Pending, Troponin I < 0.01, NT-Pro-B Natriuret Pep 2660 H 05/14/18 17:03: WBC 8.7, RBC 3.63, Hgb 11.6 L, Hct 36.8, MCV 101.4 D, MCH 32.0, MCHC 31.5, RDW 14.8 H, Plt Count 277, MPV 10.2, Gran % 74.9 H, Lymph % (Auto) 19.1 L, [place] % (Auto) 5.0, Eos % (Auto) 0.8 L, Baso % (Auto) 0.2, Gran # 6.49, Lymph # (Auto) 1.7, [place] # (Auto) 0.4, Eos # (Auto) 0.1, Baso # (Auto) 0.02 - RAD Interpretation Radiology Orders: 05/14/18 16:33 DUPLEX LOWER EXTRM VEIN BILAT [US] Stat 05/14/18 16:34 CHEST PORTABLE [RAD] Stat Disposition/Present on Arrival - Present on Arrival Any Indicators Present on Arrival: No History of DVT/PE: No History of Uncontrolled Diabetes: No Urinary Catheter: No History of Decub. Ulcer: Yes (L heel) History Surgical Site Infection Following: None - Disposition Have Diagnosis and Disposition been Completed?: Yes Diagnosis: Hyperkalemia, CHF (congestive heart failure), Renal insufficiency, COPD (chronic obstructive pulmonary disease) Disposition: HOSPITALIZED Disposition Time: 19:07 Patient Plan: Admission Patient Problems: Current Active Problems Problem Status Onset CHF (congestive heart failure) Acute COPD (chronic obstructive pulmonary disease) Acute Hyperkalemia Acute Renal insufficiency Acute Condition: STABLE
[2018-05-14 17:54] LABS: BLOOD UREA NITROGEN 42 mg/dL (7-21); GFR NON-AFRICAN AMERICAN 40
[2018-05-14] MEDS ORDERED: Sod Polystyrene Sulf 15 gm/60 ml Susp PO STA (19:05)
[2018-05-14] MEDS: Albuterol-Ipratrop 3 mg / 0.5 (3 ml) UD IH SCH ×3 (19:31→19:45)
--- NOTE | 2018-05-14 21:47 | US ---
HISTORY: Leg pain and swelling. Evaluate for DVT PHYSICIAN(S): Dylan Ryan MD. TECHNIQUE: Duplex sonography and color-flow Doppler with graded compression were used to evaluate the deep venous systems of both lower extremities. The exam is very limited due to body habitus and edema. The tibial veins are not well seen FINDINGS: The visualized deep venous systems of both lower extremities are sonographically normal and compressible. Normal wave forms and augmentation are seen. There is no sonographic evidence for deep venous thrombosis in the visualized segments of both lower extremities. IMPRESSION: No sonographic evidence for deep venous thrombosis in the visualized segments of both lower extremities. Limited study.
[2018-05-14] MEDS ORDERED: oxyCODONE 5 mg Immediate Release Tab PO PRN (22:48)
[2018-05-14 23:57] LABS: PH,URINE 6.5 (4.7-8.0); URINE BILIRUBIN NEGATIVE (NEGATIVE); URINE BLOOD SMALL (NEGATIVE); URINE GLUCOSE (UA) NEGATIVE (NEGATIVE); URINE LEUKOCYTE ESTERASE MODERATE Leu/uL (NEGATIVE); URINE PROTEIN 100 mg/dL (<30 mg/dL); URINE UROBILINOGEN 0.2 E.U./dL (<1 E.U./dL)
[2018-05-15 00:18] LABS: URINE APPEARANCE SL CLOUDY (CLEAR); URINE COLOR LIGHT YELLOW (YELLOW)
[2018-05-15 00:19] VITALS: BMI 46.3
[2018-05-15 00:29] LABS: URINE EPITHELIAL CELLS 0 - 2 /hpf (0-5)
[2018-05-15 00:30] LABS: URINE BACTERIA FEW /hpf
--- NOTE | 2018-05-15 09:21 | CARD ---
APPROVED REPORT Date of service: 05/14/2018 EKG Measurement Heart [id number] <Conclusion> Sinus rhythm with APCs RBBB LAD NSSTW changes No change
[2018-05-15] MEDS: Enoxaparin 30 mg Syringe SC SCH (09:55)
[2018-05-15] MEDS: BISOPROLOL 2.5 MG PO SCH (09:58)
[2018-05-15] MEDS ORDERED: BISOPROLOL 2.5 MG PO SCH (10:00)
[2018-05-15] MEDS ORDERED: LOVASTATIN 20 MG PO SCH (10:00)
--- NOTE | 2018-05-15 12:52 | CP.PCM.CON ---
History of Present Illness - History of Present Illness History of Present Illness: Nephrology Consultation Note: Assessment: Stable CHF exacerbation with fluid overload Hypertensive Chronic Kidney Disease (I12.9) Chronic Kidney Disease (N18.3) Stage 3 with ? mg proteinuria (R80.9) Anemia (D64.9), morbid obesity hx of NSAIDs use hyperkalemia Plan No acute need for renal replacement therapy at this time. . Hypertension control with meds as ordered. Maintain hemodynamics stable. Avoid hypotension. Patient not on ACEI/ARB due to hyperkalemia Monitor Input/Output, daily weights and renal function with basic metabolic sims el advised to stop nsaids diurese with lasix 40 mg bid as tolerated by BP. check echo. consider cardio eval low K diet Check urine spot protein/creatinine, albumin/creatinine ratio, urine for eosinop hils. Check HIV/Hep B and Hep C serology Anemia work up with TSAT/Ferritin/Vitamin B12/folate, serum protein electrophoresis with immunofixation, serum free light chain assay ([place]/Lambda) Check for 25-OH vitamin D, iPTH, phosphorus level. Dose meds/antibiotics for reduced GFR. Avoid fleets enema/magnesium based laxatives. Avoid nephrotoxins/NSAIDs/ iodinated contrast (unless needed emergently) Glycemic control. need to loose weight. Further work up/management as per primary team Thanks for allowing me to participate in care of your patient. Will follow patient with you. Please call if any Qs. had d/w team Dr Steve Alvarez Office: [phone] Chief Complaint; leg swelling Reason for consult: Acute Kidney Injury HPI: Pt is a72 F with hx of hypertension (years) ? CHF, morbid obesity presented with complaints of worsening leg swelling and weight gain over last few days Denies OTC/herbal meds but takes NSAIDs as meloxicam No recent iodinated contrast exposure. Noted obvious episodes of low BP. pt not aware about kidney diseas ein past likely has baseline CKD 3 with cr 1.1 ROS: used indemand for upper sorbian interpretation Cardiovascular: No chest pain. Pulmonary: c/o shortness of breath Gastrointestinal: denies abdominal pain No nausea. No vomiting. Genitourinary: No pain while urinating. Denies blood in urine. All other negative except as mentioned in HPI Physical Examination: General Appearance: Comfortable, in no acute respiratory distress, co-operative . obese Vitals reviewed and noted as below Head; Atraumatic, normocephalic ENT: no ulcers no thrush. Tongue is midline. Oropharynx: no rash or ulcers. EYES: Pupils are equal, round and reactive to light accommodation. Eye muscles and extraocular movement intact. Sclera is anicteric. Neck; supple no lymphadenopathy, no thyromegaly or bruit Lungs: Normal respiratory rate/effort. Breath sounds bilateral reduced at bases Heart: Normal rate. s1s2 normal. No rub or gallop. Extremities: 3+ edema. No varicose veins Neurological: Patient is alert, awake and oriented to person, place and time. No focal deficit. Strength bilateral appropriate and equal Skin: Warm and dry. Normal turgor. No rash. Palpitation: Normal elasticity for age Abdomen: Abdomen is soft. Bowel sounds +. There is no abdominal tenderness, no guarding/rigidity no organomegaly Psych: normal insight and normal affect/mood MSK: no joint tenderness or swelling. Digits and nails normal, no deformity : kidney or bladder not palpable Labs/imaging reviewed. Past medical history, past surgical history, family history, social history, allergy reviewed and noted as below Family hx: no hx of CKD. Rest non-contributory renal sono: mild left renal atrophy UA SG 1.025, 100 protein Past Patient History - Past Social History Smoking Status: Never Smoked - CARDIAC Hx Cardiac Disorders: Yes ([place] X 2 times ( 1992, 2007)) Hx Congestive Heart Failure: Yes Hx Hypercholesterolemia: Yes - PULMONARY Hx Respiratory Disorders: No - NEUROLOGICAL Hx Neurological Disorder: Yes (Neuropathy) Hx Dizziness: Yes - HEENT Hx HEENT Problems: Yes (Left eye decreasing vision since 2016) Hx Cataracts: Yes (bilateral surgery) - RENAL Hx Chronic Kidney Disease: No - ENDOCRINE/METABOLIC Hx Endocrine Disorders: No - HEMATOLOGICAL/ONCOLOGICAL Hx Blood Disorders: No - INTEGUMENTARY Hx Dermatological Problems: Yes (left heel ulcer) - MUSCULOSKELETAL/RHEUMATOLOGICAL Hx Musculoskeletal Disorders: Yes Hx Arthritis: Yes Hx Falls: Yes Hx Unsteady Gait: Yes (uses walker and cane.) - GASTROINTESTINAL Hx Gastrointestinal Disorders: No Hx Gastroesophageal Reflux: Yes - GENITOURINARY/GYNECOLOGICAL Hx Genitourinary Disorders: No - PSYCHIATRIC Hx Psychophysiologic Disorder: No Hx Substance Use: No - SURGICAL HISTORY Hx Cholecystectomy: Yes Hx Orthopedic Surgery: Yes (left knee replacement) - ANESTHESIA Hx Anesthesia: Yes Hx Anesthesia Reactions: No Hx Malignant Hyperthermia: No Meds Allergies/Adverse Reactions: Allergies Allergy/AdvReac Type Severity Reaction Status Date / Time No Known Allergies Allergy Unverified 11/16/17 19:29 - Medications Medications: Current Medications Acetaminophen (Tylenol 325mg Tab) 650 mg PO Q6H PRN PRN Reason: Pain, Mild (1-3) Aspirin (Aspirin Chewable) 81 mg PO DAILY [facility] Last Admin: 05/15/18 09:56 Dose: 81 mg Atorvastatin Calcium (Lipitor) 10 mg PO DIN [facility] Clopidogrel Bisulfate (Plavix) 75 mg PO DAILY [facility] Last Admin: 05/15/18 09:56 Dose: 75 mg Duloxetine HCl (Cymbalta) 30 mg PO DAILY [facility] Last Admin: 05/15/18 09:56 Dose: 30 mg Enoxaparin Sodium (Lovenox) 30 mg SC DAILY [facility]; Protocol Last Admin: 05/15/18 09:55 Dose: 30 mg Famotidine (Pepcid) 40 mg PO DAILY [facility] Last Admin: 05/15/18 09:56 Dose: 40 mg Furosemide (Lasix) 40 mg IVP BID [facility] Gabapentin (Neurontin) 300 mg PO TID [facility]; Protocol Last Admin: 05/15/18 09:56 Dose: 300 mg Midodrine (Proamatine) 5 mg PO TID [facility] Last Admin: 05/15/18 09:56 Dose: 5 mg Non-Formulary Medication (Bisoprolol [Zebeta]) 2.5 mg PO DAILY [facility] Last Admin: 05/15/18 09:58 Dose: Not Given Oxybutynin Chloride (Ditropan Tab) 5 mg PO DAILY [facility] Last Admin: 05/15/18 10:02 Dose: 5 mg Oxycodone HCl (Oxycodone Immediate Release Tab) 5 mg PO Q6 PRN PRN Reason: Pain, moderate (4-7) Results - Vital Signs Recent Vital Signs: Last Vital Signs Temp 98 F 05/15/18 06:00 Pulse 73 05/15/18 10:00 Resp 18 05/15/18 06:00 BP 102/58 L 05/15/18 09:57 Pulse Ox 97 05/15/18 06:00 - Labs Result Diagrams: 05/14/18 17:03 05/14/18 17:03 Labs: Laboratory Results - last 24 hr 05/14/18 05/14/18 05/14/18 17:03 17:03 22:50 WBC 8.7 RBC 3.63 Hgb 11.6 L Hct 36.8 MCV 101.4 D MCH 32.0 MCHC 31.5 RDW 14.8 H Plt Count 277 MPV 10.2 Gran % 74.9 H Lymph % (Auto) 19.1 L [place] % (Auto) 5.0 Eos % (Auto) 0.8 L Baso % (Auto) 0.2 Gran # 6.49 Lymph # (Auto) 1.7 [place] # (Auto) 0.4 Eos # (Auto) 0.1 Baso # (Auto) 0.02 Sodium 139 Potassium 5.4 H Chloride 109 H Carbon Dioxide 22 Anion Gap 13 BUN 42 H Creatinine 1.3 H Est GFR ( Amer) 49 Est GFR (Non-Af Amer) 40 Random Glucose 111 H Calcium 9.0 Magnesium 1.7 Lactate Dehydrogenase 671 Total Creatine Kinase 42 Troponin I < 0.01 NT-Pro-B Natriuret Pep 2660 H Urine Color Light yellow Urine Appearance Sl cloudy Urine pH 6.5 Ur Specific [place] 1.025 Urine Protein 100 H Urine Glucose (UA) Negative Urine Ketones Negative Urine Blood Small H Urine Nitrate Negative Urine Bilirubin Negative Urine Urobilinogen 0.2 Ur Leukocyte Esterase Moderate H Urine RBC 1 - 3 H Urine WBC 1 - 3 Ur Epithelial Cells 0 - 2 Urine Bacteria Few
--- NOTE | 2018-05-15 18:12 | CON ---
DATE: 05/15/2018 HISTORY OF PRESENT ILLNESS: The patient is a 72-year-old [place] female who has history of congestive heart failure, hypertension, presents because of shortness of breath and worsening of leg swelling. The patient denies any chest pain and is unaware of any history of heart attack in the past. The patient stated that she underwent cardiac catheterization by Dr. Moore many years ago, but no intervention was performed. SOCIAL HISTORY: Nonsmoker, nondrinker. REVIEW OF SYSTEMS: No nausea or vomiting. No fever or chills. PHYSICAL EXAMINATION: GENERAL: The patient is an elderly female, who does not appear to be in any distress. VITAL SIGNS: Blood pressure 112/57, heart rate 79, temperature 98.3, respirations 17. HEENT: Normocephalic. CHEST: Clear. HEART: S1, S2 regular. EXTREMITIES: 2-3+ pitting edema. LABORATORY DATA: EKG reveals sinus rhythm, right bundle-branch block, left axis deviation. Today's BUN and creatinine are 42 and 1.3, respectively. Venous Doppler of lower extremities, no evidence of DVT. ASSESSMENT: 1. Acute exacerbation of congestive heart failure. 2. Chronic renal insufficiency. 3. Hypertension. RECOMMENDATIONS: Continue current aspirin, bisoprolol, intravenous Lasix, Lipitor, subcutaneous Lovenox and Plavix. The patient is scheduled for an echocardiogram. Star Hess MD
--- NOTE | 2018-05-15 23:38 | CON ---
DATE: 05/15/2018 CARDIOLOGY CONSULTATION REASON FOR CONSULTATION: Shortness of breath and leg swelling. HISTORY OF PRESENT ILLNESS: The patient is a 72-year-old [place] female, who has history of congestive heart failure and hypertension, presented because of worsening shortness of breath as well as worsening of leg swelling. The patient is unaware of any history of heart attack in the past or coronary intervention; however, she remembers having cardiac catheterization done by Dr. Moore few years ago. SOCIAL HISTORY: Nonsmoker, nondrinker. MEDICATIONS: Aspirin 81 mg once daily, bisoprolol 2.5 mg daily, Cymbalta 30 mg daily, Ditropan 500 mg daily, Lipitor 10 mg once daily, Lasix 40 mg intravenous twice a day, Lovenox 30 mg subcutaneous once a day, Neurontin 300 mg t.i.d., Plavix 75 mg once a day, and ProAmatine 5 mg t.i.d. PHYSICAL EXAMINATION: GENERAL: The patient is an elderly female, who does not appear to be in acute distress. VITAL SIGNS: Blood pressure 112/57, heart rate 79, temperature 98.2, respiration 17. HEENT: Normocephalic. CHEST: Absent breath sounds over the bases. HEART: S1 and S2 regular and distant. ABDOMEN: Soft. EXTREMITIES: A 2-3+ pitting edema. LABORATORY DATA: Hemoglobin and hematocrit are 11.6 and 36.8. White count and platelet count are within normal limits. Today's SMA-7: Sodium 139, potassium 5.4, chloride 109, CO2 of 22, glucose of 111, BUN 42, creatinine 1.3. ProBNP is 2660. Venous Doppler of lower extremities, no sonographic evidence of DVT. Chest x-ray is consistent with mild CHF, borderline cardiomegaly. EKG reveals sinus rhythm with APCs, right bundle-branch block, left axis deviation, heart rate 85. ASSESSMENT: 1. Consider exacerbation of congestive heart failure. 2. Chronic renal insufficiency. 3. Hypertension. RECOMMENDATIONS: Continue current aspirin, intravenous Lasix, Lipitor, prophylactic subcutaneous Lovenox, Plavix, and ProAmatine. Obtain an echocardiogram. Star Hess MD
--- NOTE | 2018-05-16 04:58 | HP ---
DATE OF EXAM: 05/15/2018 CHIEF COMPLAINT: Came in with leg swelling, both lower extremities and difficult ambulation, dyspnea sometimes. HISTORY OF PRESENT ILLNESS: Mrs. Jaden Martin is a 72-year-old [place] female, obese morbidly, hypertension. She has a history of leg swelling in the past, renal insufficiency, urinary tract infections. She came in because of progressively worsening leg edema. The patient also had noted left leg ulcers, it seems using Silvadene is not getting better. She denied any fever, any chest pain, any nausea, any vomiting. The patient does have a history of hypercholesterolemia, morbid obesity, neuropathy, chronic osteoarthritis of both knees and shoulders, and urinary incontinence. HOME MEDICATIONS: She takes 20 mg Lasix every day, bisoprolol 2.5 mg once a day, lovastatin 20 mg daily, Tylenol, Neurontin 300 mg t.i.d., Pepcid 40 daily, Cymbalta 60 mg p.o. daily, Plavix 75, aspirin 81, oxybutynin 5 mg p.o. daily, Zestril 10 mg p.o. daily. ALLERGIES: SHE HAS NO KNOWN ALLERGIES. REVIEW OF SYSTEMS: She always complains of joint pain, shoulder pains, she had shots, injection helps, but she always complains of pain. No other complaints. Urine incontinence noted. She does have some dyspnea, sometimes with exertion. PHYSICAL EXAMINATION VITAL SIGNS: When she came in temperature 98.1, heart rate 82, blood pressure 123/56, respiration 16, saturation 100%. HEAD AND NECK: Normal. No JVD. No thyromegaly. CHEST: Clear bilaterally. CARDIAC: First sound and second sound normal. ABDOMEN: Obese, nontender. EXTREMITIES: Bilateral leg edema below the knee. NEUROLOGIC: General weakness, but she moves all extremities. She is alert, awake, and oriented x3. LABORATORY STUDIES: Show white count 8.7, hemoglobin 11.6, hematocrit 36.8, and platelets 277. Sodium 139, potassium 5.4, chloride 109, bicarb 22, BUN 42, creatinine 1.3, the patient's sugar 111. The patient's BNP is 2660. Troponin is negative. The patient had urinalysis which shows leukocyte esterase positive, high, but there are no white cells and there are 1-3 red blood cells. Rest of the reports; chest x-ray, no active pulmonary disease. No significant change between the previous chest x-rays. Venous Doppler of lower extremity was negative. EKG was normal sinus rhythm, right bundle-branch block, left axis deviation. Nonspecific ST-T wave changes. No change from previous one. IMPRESSION AND PLAN: 1. Bilateral leg edema, possible congestive heart failure. We will get Cardiology, IV Lasix. 2. Renal insufficiency, acute versus chronic. We will get a Renal consult to look into the patient . 3. Left heel ulcer. We will get a Podiatry consult, Dr. Ocasio. 4. Chronic osteoarthritis, chronic pain. We will continue Percocet and oxycodone. 5. We will continue also Lovenox, deep venous thrombosis prophylaxis and Lipitor for hypercholesterolemia. Continue current therapy. Johnny Jones MD
[2018-05-16 06:57] LABS: IRON 68 ug/dL (45-180)
[2018-05-16 06:59] LABS: ALBUMIN 3.4 g/dL (3.0-4.8); BLOOD UREA NITROGEN 50 mg/dL (7-21); CALCIUM 8.8 mg/dL (8.4-10.5); GFR NON-AFRICAN AMERICAN 37
[2018-05-16 07:00] LABS: ALB/GLOB RATIO 1.2 (1.1-1.8); ALT/SGPT 30 U/L (7-56); AST/SGOT 36 U/L (14-36); HDL CHOLESTEROL 55 mg/dL (29-60)
[2018-05-16 07:01] LABS: LDL CHOLESTEROL 104 mg/dL (0-129); TROPONIN I 0.03 ng/mL
[2018-05-16 07:06] LABS: % IRON SATURATION 26 % (20-55); TOTAL IRON BINDING CAPACITY 267 ug/dL (265-497)
[2018-05-16] MEDS: BISOPROLOL 2.5 MG PO SCH (10:00)
[2018-05-16] MEDS: Enoxaparin 30 mg Syringe SC SCH (10:17)
[2018-05-16 12:10] LABS: HEPATITIS B SURFACE AG Negative (NEGATIVE)
[2018-05-16 12:15] LABS: FERRITIN 58.2 ng/mL; HEPATITIS B CORE AB NEGATIVE (NEGATIVE)
[2018-05-16 12:28] LABS: HEPATITIS C ANTIBODY NEGATIVE (NEGATIVE)
[2018-05-16 12:44] LABS: FOLATE > 20.0 ng/mL
--- NOTE | 2018-05-16 14:05 | CP.PCM.PN ---
Subjective - Date & Time of Evaluation Date of Evaluation: 05/16/18 Time of Evaluation: 14:04 - Subjective Subjective: Nephrology Consultation Note: Assessment: Stable CHF exacerbation with fluid overload Hypertensive Chronic Kidney Disease (I12.9) Chronic Kidney Disease (N18.3) Stage 3 with ? mg proteinuria (R80.9) Anemia (D64.9), morbid obesity hx of NSAIDs use hyperkalemia Plan No acute need for renal replacement therapy at this time. . Hypertension control with meds as ordered. Maintain hemodynamics stable. Avoid hypotension. Patient not on ACEI/ARB due to hyperkalemia Monitor Input/Output, daily weights and renal function with basic metabolic panel advised to stop nsaids diurese with lasix 40 mg bid as tolerated by BP. check echo. appreciate cardio eval low K diet started iron, MVI and weekly vit D Check urine spot protein/creatinine, albumin/creatinine ratio, urine for eosinophils. Check HIV/Hep B and Hep C serology Anemia work up with TSAT/Ferritin/Vitamin B12/folate, serum protein electrophoresis with immunofixation, serum free light chain assay ([place]/Lambda) Check for 25-OH vitamin D, iPTH, phosphorus level. Dose meds/antibiotics for reduced GFR. Avoid fleets enema/magnesium based laxatives. Avoid nephrotoxins/NSAIDs/ iodinated contrast (unless needed emergently) Glycemic control. need to loose weight. Further work up/management as per primary team Thanks for allowing me to participate in care of your patient. Will follow patient with you. Please call if any Qs. had d/w team Dr Steve Alvarez Office: [phone] Chief Complaint; leg swelling Reason for consult: Acute Kidney Injury HPI: Pt is a72 F with hx of hypertension (years) ? CHF, morbid obesity presented with complaints of worsening leg swelling and weight gain over last few days Denies OTC/herbal meds but takes NSAIDs as meloxicam No recent iodinated contrast exposure. Noted obvious episodes of low BP. pt not aware about kidney diseas ein past likely has baseline CKD 3 with cr 1.1 ROS: used indemand for bulgarian interpretation Cardiovascular: No chest pain. Pulmonary: c/o shortness of breath Gastrointestinal: denies abdominal pain No nausea. No vomiting. Genitourinary: No pain while urinating. Denies blood in urine. All other negative except as mentioned in HPI Physical Examination: General Appearance: Comfortable, in no acute respiratory distress, co-operative . obese Vitals reviewed and noted as below Head; Atraumatic, normocephalic ENT: no ulcers no thrush. Tongue is midline. Oropharynx: no rash or ulcers. EYES: Pupils are equal, round and reactive to light accommodation. Eye muscles and extraocular movement intact. Sclera is anicteric. Neck; supple no lymphadenopathy, no thyromegaly or bruit Lungs: Normal respiratory rate/effort. Breath sounds bilateral reduced at bases Heart: Normal rate. s1s2 normal. No rub or gallop. Extremities: 3+ edema. No varicose veins Neurological: Patient is alert, awake and oriented to person, place and time. No focal deficit. Strength bilateral appropriate and equal Skin: Warm and dry. Normal turgor. No rash. Palpitation: Normal elasticity for age Abdomen: Abdomen is soft. Bowel sounds +. There is no abdominal tenderness, no guarding/rigidity no organomegaly Psych: normal insight and normal affect/mood MSK: no joint tenderness or swelling. Digits and nails normal, no deformity : kidney or bladder not palpable Labs/imaging reviewed. Past medical history, past surgical history, family history, social history, allergy reviewed and noted as below Family hx: no hx of CKD. Rest non-contributory renal sono: mild left renal atrophy UA SG 1.025, 100 protein Objective - Vital Signs/Intake and Output Vital Signs (last 24 hours): Temp Pulse Resp BP Pulse Ox 98.5 F 81 20 121/56 L 96 05/16/18 12:00 05/16/18 12:00 05/16/18 12:00 05/16/18 12:00 05/16/18 06:00 Intake and Output: 05/16/18 05/16/18 06:59 18:59 Intake Total 240 Output Total 1600 Balance -1360 - Medications Medications: Current Medications Acetaminophen (Tylenol 325mg Tab) 650 mg PO Q6H PRN PRN Reason: Pain, Mild (1-3) Last Admin: 05/15/18 14:35 Dose: 650 mg Aspirin (Aspirin Chewable) 81 mg PO DAILY [facility] Last Admin: 05/15/18 09:56 Dose: 81 mg Atorvastatin Calcium (Lipitor) 10 mg PO DIN [facility] Last Admin: 05/15/18 17:44 Dose: 10 mg Clopidogrel Bisulfate (Plavix) 75 mg PO DAILY [facility] Last Admin: 05/16/18 10:16 Dose: 75 mg Duloxetine HCl (Cymbalta) 30 mg PO DAILY [facility] Last Admin: 05/16/18 10:16 Dose: 30 mg Enoxaparin Sodium (Lovenox) 30 mg SC DAILY [facility]; Protocol Last Admin: 05/16/18 10:17 Dose: 30 mg Ergocalciferol (Drisdol 50,000 Intl Units Cap) 1 cap PO Q7D [facility] Famotidine (Pepcid) 40 mg PO DAILY [facility] Last Admin: 05/16/18 10:16 Dose: 40 mg Ferrous Gluconate (Fergon) 324 mg PO TID [facility] Furosemide (Lasix) 40 mg IVP BID [facility] Last Admin: 05/16/18 10:17 Dose: 40 mg Gabapentin (Neurontin) 300 mg PO TID [facility]; Protocol Last Admin: 05/16/18 10:16 Dose: 300 mg Midodrine (Proamatine) 5 mg PO TID [facility] Last Admin: 05/16/18 10:18 Dose: 5 mg Non-Formulary Medication (Bisoprolol [Zebeta]) 2.5 mg PO DAILY [facility] Last Admin: 05/15/18 09:58 Dose: Not Given Oxybutynin Chloride (Ditropan Tab) 5 mg PO DAILY [facility] Last Admin: 05/16/18 10:17 Dose: 5 mg Oxycodone HCl (Oxycodone Immediate Release Tab) 5 mg PO Q6 PRN PRN Reason: Pain, moderate (4-7) Vitamin B Complex/Vit C/Folic Acid (Nephro-[place]iley) 1 tab PO 0800 [facility] - Labs Labs: 05/14/18 17:03 05/16/18 06:00
[2018-05-16] MEDS: Ergocalciferol 50,000 Intl Units Cap PO SCH (17:24)
--- NOTE | 2018-05-16 18:43 | PN ---
DATE: 05/16/2018 SEX OF THE PATIENT: Female. AGE OF THE PATIENT: 72. REASON FOR CONSULTATION: Cardiac evaluation, admitted with decompensated congestive heart failure, history of nonobstructive coronary artery disease, status post cardiac event many years ago. SUBJECTIVE: The patient denies any chest pain, shortness of breath, or any palpitation. PHYSICAL EXAMINATION: GENERAL: Not in apparent distress. VITAL SIGNS: Temperature is afebrile. Heart rate 81, blood pressure 120/56. HEENT: PERRLA. Extraocular muscles intact. NECK: Supple. No carotid bruit or thyromegaly. CHEST: Clear to auscultation. HEART: S1 and S2, regular. ABDOMEN: Soft. EXTREMITIES: Clubbing and cyanosis negative. LABORATORY DATA: Blood workup as follows: WBC is 8.7, hemoglobin 8.3, hematocrit 38.6, and platelet count 227. Chemistries show sodium 130, potassium 4, chloride 105, carbon dioxide 27, anion gap of 10, BUN 26, and creatinine 1.4. Troponin 0.01 and 0.03. IMPRESSION: A 72-year-old obese female with body mass index of ____ kg/m2, history of hypertension, hyperlipidemia, questionable history of coronary artery disease who claims that she had a ____ catheter done by Dr. Moore and medical treatment recommended, came in with worsening shortness of breath, history of some renal insufficiency and leg pain. Denies any chest pain. History of hypertension and obesity. Duplex scan for deep vein thrombosis was negative. EKG shows normal sinus, right bundle-branch block. No acute ST-T changes noted. So far, no evidence of acute myocardial infarction. RECOMMENDATIONS: We will wait for the echo to be done this morning. Continue diuretics. Continue deep venous thrombosis prophylaxis. Continue atorvastatin. Continue IV Lasix. Monitor renal function closely. We will follow with you. LDL 104, HDL 55, hemoglobin A1c 5.2, TSH 0.97. Thank you Dr. Jones, for providing us the opportunity in taking care of the patient, Jaden Martin. Shari Schneider MD
[2018-05-17] MEDS: Multivitamin Vitamin B Complex (Nephro-Vite) Tab PO SCH (09:22)
[2018-05-17] MEDS: Enoxaparin 30 mg Syringe SC SCH (09:23)
[2018-05-17] MEDS: BISOPROLOL 2.5 MG PO SCH (09:24)
--- NOTE | 2018-05-17 10:04 | CARD ---
APPROVED REPORT Date of service: 05/16/2018 EXAM: Two-dimensional and M-mode echocardiogram with Doppler and color Doppler. INDICATION CP 2D DIMENSIONS IVSd0.9 (0.7-1.1cm)LVDd4.8 (3.9-5.9cm) PWd1.2 (0.7-1.1cm)LVDs3.1 (2.5-4.0cm) FS (%) 34.5 %LVEF (%)63.4 (>50%) M-Mode DIMENSIONS Left Atrium (MM)4.80 (2.5-4.0cm)Aortic Root2.80 (2.2-3.7cm) Aortic Cusp Exc.2.20 (1.5-2.0cm) Aortic Valve AoV Peak Gouxzdgi102.0cm/Wiliam Peak GR.14mmHg Mitral Valve MV E Ahrmdmce14.6cm/sMV A Avayszot034.0cm/sE/A ratio0.7 TDI Lateral E' Peak V7.41cm/sMedial E' Peak V5.65cm/sE/Lateral E'9.4 E/Medial E'12.3 Tricuspid Valve TR Peak Vvrwoudf649zb/sRAP [id number] Peak Gr.29mmHg [id number] LEFT VENTRICLE The left ventricle is normal size. There is normal left ventricular wall thickness. The left ventricular function is normal.EF-65% There is normal LV segmental wall motion. Transmitral Doppler flow pattern is Grade III-reversible restrictive diastolic dysfunction. No left ventricle thrombus noted on this study. There is no ventricular septal defect visualized. There is no left ventricular aneurysm. There is no mass noted in the left ventricle. RIGHT VENTRICLE The right ventricle is normal size. There is normal right ventricular wall thickness. The right ventricular systolic function is normal. ATRIA The left atrium is mildly dilated. The right atrium size is normal. The interatrial septum is intact with no evidence for an atrial septal defect. AORTIC VALVE The aortic valve is thickened but opens well. No aortic regurgitation is present. There is no aortic valvular stenosis. There is no aortic valvular vegetation. MITRAL VALVE The mitral valve is thickened but opens well. Mitral regurgitation is trace. There is no mitral valve stenosis. There is no evidence of mitral valve prolapse. TRICUSPID VALVE The tricuspid valve leaflets are thickened , but open well. There is trace to mild tricuspid regurgitation.RVSP-39 mm of Hg. There is no tricuspid valve stenosis. There is no tricuspid valve prolapse or vegetation. PULMONIC VALVE The pulmonary valve is normal in structure. There is no pulmonic valvular regurgitation. There is no pulmonic valvular stenosis. GREAT VESSELS The aortic root is normal in size. The ascending aorta is normal in size. The pulmonary artery is normal. The IVC is normal in size and collapses >50% with inspiration. PERICARDIAL EFFUSION There is no pleural effusion. There is no pericardial effusion. <Conclusion> The left ventricle is normal size. There is normal left ventricular wall thickness. The left ventricular function is normal.EF-65% Mitral regurgitation is trace. There is trace to mild tricuspid regurgitation.RVSP-39 mm of Hg. There is no pericardial effusion.
--- NOTE | 2018-05-17 13:48 | CP.PCM.PN ---
Subjective - Date & Time of Evaluation Date of Evaluation: 05/17/18 Time of Evaluation: 13:47 - Subjective Subjective: Nephrology Consultation Note: Assessment: Stable dCHF exacerbation with fluid overload Hypertensive Chronic Kidney Disease (I12.9) Chronic Kidney Disease (N18.3) Stage 3 with ? mg proteinuria (R80.9) Anemia (D64.9), morbid obesity hx of NSAIDs use hyperkalemia Plan No acute need for renal replacement therapy at this time. . Hypertension control with meds as ordered. Maintain hemodynamics stable. Avoid hypotension. Patient not on ACEI/ARB due to hyperkalemia Monitor Input/Output, daily weights and renal function with basic metabolic panel advised to stop nsaids diurese with lasix 40 mg bid as tolerated by BP. reviewed echo results. appreciate cardio eval low K diet started iron, MVI and weekly vit D Check urine spot protein/creatinine, albumin/creatinine ratio, urine for eosinophils. Check HIV/Hep B and Hep C serology Anemia work up with TSAT/Ferritin/Vitamin B12/folate, serum protein electrophoresis with immunofixation, serum free light chain assay (Kaleva/Lambda) Check for 25-OH vitamin D, iPTH, phosphorus level. Dose meds/antibiotics for reduced GFR. Avoid fleets enema/magnesium based laxatives. Avoid nephrotoxins/NSAIDs/ iodinated contrast (unless needed emergently) Glycemic control. need to loose weight. Further work up/management as per primary team Thanks for allowing me to participate in care of your patient. Will follow patient with you. Please call if any Qs. had d/w team Dr Steve Alvarez Office: [phone] Chief Complaint; leg swelling Reason for consult: Acute Kidney Injury HPI: Pt is a72 F with hx of hypertension (years) ? CHF, morbid obesity pr esented with complaints of worsening leg swelling and weight gain over last few days Denies OTC/herbal meds but takes NSAIDs as meloxicam No recent iodinated contrast exposure. Noted obvious episodes of low BP. pt not aware about kidney diseas ein past likely has baseline CKD 3 with cr 1.1 ROS: staff helped in bulgarian interpretation Cardiovascular: No chest pain. Pulmonary: c/o shortness of breath getting better Gastrointestinal: denies abdominal pain No nausea. No vomiting. Genitourinary: No pain while urinating. Denies blood in urine. All other negative except as mentioned in HPI Physical Examination: General Appearance: Comfortable, in no acute respiratory distress, co-operative . obese Vitals reviewed and noted as below Head; Atraumatic, normocephalic ENT: no ulcers no thrush. Tongue is midline. Oropharynx: no rash or ulcers. EYES: Pupils are equal, round and reactive to light accommodation. Eye muscles and extraocular movement intact. Sclera is anicteric. Neck; supple no lymphadenopathy, no thyromegaly or bruit Lungs: Normal respiratory rate/effort. Breath sounds bilateral reduced at bases but better Heart: Normal rate. s1s2 normal. No rub or gallop. Extremities: 2+ edema. No varicose veins Neurological: Patient is alert, awake and oriented to person, place and time. No focal deficit. Strength bilateral appropriate and equal Skin: Warm and dry. Normal turgor. No rash. Palpitation: Normal elasticity for age Abdomen: Abdomen is soft. Bowel sounds +. There is no abdominal tenderness, no guarding/rigidity no organomegaly Psych: normal insight and normal affect/mood MSK: no joint tenderness or swelling. Digits and nails normal, no deformity : kidney or bladder not palpable Labs/imaging reviewed. Past medical history, past surgical history, family history, social history, allergy reviewed and noted as below Family hx: no hx of CKD. Rest non-contributory renal sono: mild left renal atrophy UA SG 1.025, 100 protein Objective - Vital Signs/Intake and Output Vital Signs (last 24 hours): Temp Pulse Resp BP Pulse Ox 97.5 F L 90 20 118/68 100 05/17/18 12:00 05/17/18 12:00 05/17/18 12:00 05/17/18 12:00 05/17/18 06:00 Intake and Output: 05/17/18 05/17/18 06:59 18:59 Intake Total 240 Balance 240 - Medications Medications: Current Medications Acetaminophen (Tylenol 325mg Tab) 650 mg PO Q6H PRN PRN Reason: Pain, Mild (1-3) Last Admin: 05/16/18 21:00 Dose: 650 mg Aspirin (Aspirin Chewable) 81 mg PO DAILY [facility] Last Admin: 05/17/18 09:23 Dose: 81 mg Atorvastatin Calcium (Lipitor) 10 mg PO DIN [facility] Last Admin: 05/16/18 17:30 Dose: 10 mg Clopidogrel Bisulfate (Plavix) 75 mg PO DAILY [facility] Last Admin: 05/17/18 09:22 Dose: 75 mg Duloxetine HCl (Cymbalta) 30 mg PO DAILY [facility] Last Admin: 05/17/18 09:22 Dose: 30 mg Enoxaparin Sodium (Lovenox) 30 mg SC DAILY [facility]; Protocol Last Admin: 05/17/18 09:23 Dose: 30 mg Ergocalciferol (Drisdol 50,000 Intl Units Cap) 1 cap PO Q7D [facility] Last Admin: 05/16/18 17:24 Dose: 1 cap Famotidine (Pepcid) 40 mg PO DAILY [facility] Last Admin: 05/17/18 09:22 Dose: 40 mg Ferrous Gluconate (Fergon) 324 mg PO TID [facility] Last Admin: 05/17/18 09:22 Dose: 324 mg Furosemide (Lasix) 40 mg IVP BID [facility] Last Admin: 05/17/18 09:23 Dose: 40 mg Gabapentin (Neurontin) 300 mg PO TID [facility]; Protocol Last Admin: 05/17/18 09:22 Dose: 300 mg Midodrine (Proamatine) 5 mg PO TID [facility] Last Admin: 05/17/18 09:22 Dose: 5 mg Non-Formulary Medication (Bisoprolol [Zebeta]) 2.5 mg PO DAILY [facility] Last Admin: 05/17/18 09:24 Dose: Not Given Oxybutynin Chloride (Ditropan Tab) 5 mg PO DAILY [facility] Last Admin: 05/17/18 09:22 Dose: 5 mg Oxycodone HCl (Oxycodone Immediate Release Tab) 5 mg PO Q6 PRN PRN Reason: Pain, moderate (4-7) Vitamin B Complex/Vit C/Folic Acid (Nephro-Riley) 1 tab PO 0800 [facility] Last Admin: 05/17/18 09:22 Dose: 1 tab - Labs Labs: 05/14/18 17:03 05/16/18 06:00
--- NOTE | 2018-05-17 14:53 | PN ---
DATE: 05/17/2018 REASON FOR CONSULTATION AND FOLLOWUP: Cardiac evaluation, admitted with decompensated congestive heart failure, history of nonobstructive coronary artery disease, status post cardiac catheterization many years ago. SUBJECTIVE: The patient denied any chest pain, shortness of breath, or any palpitation. OBJECTIVE: GENERAL: Not in apparent distress. VITAL SIGNS: Temperature afebrile, heart rate 78, blood pressure 127/82. HEENT: PERRLA. Extraocular muscles are intact. NECK: Supple. No carotid bruit or thyromegaly. CHEST: Clear to auscultation. HEART: S1 and S2, regular. ABDOMEN: Soft. EXTREMITIES: Clubbing and cyanosis negative. LABORATORY DATA: Blood workup as follows: WBC 8.7, hemoglobin 8.3, hematocrit 36.8, and platelet count 277. Chemistry showed sodium 130, potassium 4.1, chloride 105, carbon dioxide 26, anion gap of 10, BUN 50, and creatinine 1.4. IMPRESSION AND PLAN: A 72-year-old female with past medical history significant for morbid obesity, increased body mass index of 50 kg/m2, history chronic renal insufficiency, history of nonobstructive coronary artery disease, status post cardiac catheterization many years ago, admitted with shortness of shortness of breath. Denied any chest pain or shortness of breath. EKG showed normal sinus, right bundle-branch block so far with no evidence of acute myocardial infarction, troponin 0.01 and 0.03 in face of creatinine of 1.5, creatinine clearance of 30 mL/hr,indeterminate troponin is not significant, history of diabetes and obesity. Given the multiple risks factors of coronary artery disease, we will get echo and a stress test. We will wait for the echo to be done. When it is available, we will follow up. Continue intravenous Lasix, continue gentle diuretics, monitor renal function. Repeat the blood workup in the morning. Avoid nephrotoxic medications. Continue baby aspirin. Continue atorvastatin. Continue deep vein thrombosis prophylaxis. We will discuss with Dr. Jones. Reason is unknown why the patient is on Plavix, but we will do the stress test tomorrow for risk stratification. We will keep n.p.o. after midnight for the stress test tomorrow. Thank you Dr. Jones for providing us the opportunity in taking care the patient, Jaden Martin. Shari Schneider MD [facility] # [id number] DALIA
--- NOTE | 2018-05-17 17:03 | CP.PCM.CON ---
<Lakisha Schustera - Last Filed: 05/18/18 19:58> History of Present Illness - History of Present Illness History of Present Illness: Podiatry consult note for , A 72 year old female, whose past medical history includes CHF and hypertension, see at bedside with CC of bilateral edema for the past month. Patient states she has an ulcer on the left heel that she has noted for the last 2-3 months. Patient states she has not seen a doctor for it because she thought it would go away, however its gotten worse over time. Denies dressing the wound daily. States the ulcer is now very painful. Denies any other complains. Patient denies any fever, diarrhea, nausea, vomiting, urinary symptoms, back pain, neck pain, headache, dizziness, or any other complaints. PMD: Dr. Jones Past Patient History - Past Social History Smoking Status: Never Smoked - CARDIAC Hx Cardiac Disorders: Yes (NE X 2 times ( 1992, 2007)) - PULMONARY Hx Respiratory Disorders: No - NEUROLOGICAL Hx Neurological Disorder: Yes (Neuropathy) - HEENT Hx HEENT Problems: Yes (Left eye decreasing vision since 2016) - RENAL Hx Chronic Kidney Disease: No - ENDOCRINE/METABOLIC Hx Endocrine Disorders: No - HEMATOLOGICAL/ONCOLOGICAL Hx Blood Disorders: No - INTEGUMENTARY Hx Dermatological Problems: Yes (left heel old healed ulcer) - MUSCULOSKELETAL/RHEUMATOLOGICAL Hx Musculoskeletal Disorders: Yes Hx Arthritis: Yes Hx Falls: No Hx Unsteady Gait: Yes (uses walker and cane.) - GASTROINTESTINAL Hx Gastrointestinal Disorders: No - GENITOURINARY/GYNECOLOGICAL Hx Genitourinary Disorders: No - PSYCHIATRIC Hx Psychophysiologic Disorder: No Hx Substance Use: No - SURGICAL HISTORY Hx Cholecystectomy: Yes Hx Orthopedic Surgery: Yes (left knee replacement) - ANESTHESIA Hx Anesthesia: Yes Hx Anesthesia Reactions: No Hx Malignant Hyperthermia: No Meds Allergies/Adverse Reactions: Allergies Allergy/AdvReac Type Severity Reaction Status Date / Time No Known Allergies Allergy Unverified 11/16/17 19:29 - Medications Medications: Current Medications Acetaminophen (Tylenol 325mg Tab) 650 mg PO Q6H PRN PRN Reason: Pain, Mild (1-3) Last Admin: 05/17/18 14:26 Dose: 650 mg Aspirin (Aspirin Chewable) 81 mg PO DAILY [facility] Last Admin: 05/17/18 09:23 Dose: 81 mg Atorvastatin Calcium (Lipitor) 10 mg PO DIN [facility] Last Admin: 05/16/18 17:30 Dose: 10 mg Clopidogrel Bisulfate (Plavix) 75 mg PO DAILY [facility] Last Admin: 05/17/18 09:22 Dose: 75 mg Duloxetine HCl (Cymbalta) 30 mg PO DAILY [facility] Last Admin: 05/17/18 09:22 Dose: 30 mg Enoxaparin Sodium (Lovenox) 30 mg SC DAILY [facility]; Protocol Last Admin: 05/17/18 09:23 Dose: 30 mg Ergocalciferol (Drisdol 50,000 Intl Units Cap) 1 cap PO Q7D [facility] Last Admin: 05/16/18 17:24 Dose: 1 cap Famotidine (Pepcid) 40 mg PO DAILY [facility] Last Admin: 05/17/18 09:22 Dose: 40 mg Ferrous Gluconate (Fergon) 324 mg PO TID [facility] Last Admin: 05/17/18 14:16 Dose: 324 mg Furosemide (Lasix) 40 mg IVP BID [facility] Last Admin: 05/17/18 09:23 Dose: 40 mg Gabapentin (Neurontin) 300 mg PO TID [facility]; Protocol Last Admin: 05/17/18 14:16 Dose: 300 mg Midodrine (Proamatine) 5 mg PO TID [facility] Last Admin: 05/17/18 14:17 Dose: Not Given Non-Formulary Medication (Bisoprolol [Zebeta]) 2.5 mg PO DAILY [facility] Last Admin: 05/17/18 09:24 Dose: Not Given Oxybutynin Chloride (Ditropan Tab) 5 mg PO DAILY [facility] Last Admin: 05/17/18 09:22 Dose: 5 mg Oxycodone HCl (Oxycodone Immediate Release Tab) 5 mg PO Q6 PRN PRN Reason: Pain, moderate (4-7) Vitamin B Complex/Vit C/Folic Acid (Nephro-Riley) 1 tab PO 0800 [facility] Last Admin: 05/17/18 09:22 Dose: 1 tab Physical Exam - Constitutional Appears: Well, Non-toxic, No Acute Distress - Head Exam Head Exam: ATRAUMATIC, NORMOCEPHALIC - Eye Exam Eye Exam: EOMI, Normal appearance Pupil Exam: NORMAL ACCOMODATION - ENT Exam ENT Exam: Mucous Membranes Moist - Cardiovascular Exam Cardiovascular Exam: REGULAR RHYTHM - Extremities Exam Additional comments: b/L LE exam: Vascular: DP/PT nonpalpable secondary to edema, TG warm to cool, +3 pitting edema noted pretibial perimalleolar and dorsum of the foot b/l, CFT<3 secs x 5. derm: ulcer noted on the lateral aspect of the left posterior heel, irregular border with fibrogranular base, no drainage, no malodor, no tunneling or tracking noted, no other open lesions, +3 pitting edema noted pretibial perimalleolar and dorsum of the foot b/l ortho: pain on palpation to b/l legs and heel ulcer neuro:protective sensation intact Results - Vital Signs Recent Vital Signs: Last Vital Signs Temp 97.5 F L 05/17/18 12:00 Pulse 90 05/17/18 12:00 Resp 20 05/17/18 12:00 BP 118/68 05/17/18 12:00 Pulse Ox 100 05/17/18 06:00 - Labs Result Diagrams: 05/18/18 07:00 05/18/18 07:00 Labs: Laboratory Results - last 24 hr 05/15/18 05/15/18 05/16/18 18:40 18:40 06:00 Total Protein (PEP) 5.6 L Ur Random Creatinine 48 U Random Total Protein 204 H Urine Total Volume 0.3 Microalb/Creat Ratio 6 Hep Bs Antibody 05/16/18 06:30 Total Protein (PEP) Ur Random Creatinine U Random Total Protein Urine Total Volume Microalb/Creat Ratio Hep Bs Antibody Negative Assessment & Plan - Assessment and Plan (Free Text) Assessment: 72 yo female seen at bedside for b/l pitting edema of the LE and left heel ulcer. Plan: Patient seen and evaluated Chart, labs and vitals reviewed; afebrile LE venous doppler reviewed; no DVT Left foot cultures: staph auereus and corynebacterium left foot x-rays ordered LE arterial duplex ordered left heel dressed with betadine soaked gauze, [facility] podiatry will continue to follow the patient thank you for the consult <Luis Alberto Browning - Last Filed: 05/19/18 10:30> Meds - Medications Medications: Current Medications Acetaminophen (Tylenol 325mg Tab) 650 mg PO Q6H PRN PRN Reason: Pain, Mild (1-3) Last Admin: 05/18/18 23:09 Dose: 650 mg Aspirin (Aspirin Chewable) 81 mg PO DAILY [facility] Last Admin: 05/18/18 12:12 Dose: 81 mg Atorvastatin Calcium (Lipitor) 10 mg PO DIN [facility] Last Admin: 05/18/18 18:03 Dose: 10 mg Clopidogrel Bisulfate (Plavix) 75 mg PO DAILY [facility] Last Admin: 05/18/18 12:13 Dose: 75 mg Duloxetine HCl (Cymbalta) 30 mg PO DAILY [facility] Last Admin: 05/18/18 12:13 Dose: 30 mg Enoxaparin Sodium (Lovenox) 30 mg SC DAILY [facility]; Protocol Last Admin: 05/18/18 12:14 Dose: 30 mg Ergocalciferol (Drisdol 50,000 Intl Units Cap) 1 cap PO Q7D [facility] Last Admin: 05/16/18 17:24 Dose: 1 cap Famotidine (Pepcid) 40 mg PO DAILY [facility] Last Admin: 05/18/18 12:13 Dose: 40 mg Ferrous Gluconate (Fergon) 324 mg PO TID [facility] Last Admin: 05/18/18 18:02 Dose: 324 mg Furosemide (Lasix) 40 mg IVP BID [facility] Last Admin: 05/18/18 18:03 Dose: 40 mg Gabapentin (Neurontin) 300 mg PO TID [facility]; Protocol Last Admin: 05/18/18 18:02 Dose: 300 mg Magnesium Oxide (Mag-Ox) 400 mg PO BID [facility] Stop: 05/19/18 23:59 Last Admin: 05/18/18 18:03 Dose: 400 mg Metolazone (Zaroxolyn) 5 mg PO BID [facility] Stop: 05/21/18 18:01 Last Admin: 05/18/18 18:03 Dose: 5 mg Midodrine (Proamatine) 5 mg PO TID [facility] Last Admin: 05/18/18 18:03 Dose: 5 mg Non-Formulary Medication (Bisoprolol [Zebeta]) 2.5 mg PO DAILY [facility] Last Admin: 05/18/18 12:15 Dose: Not Given Oxybutynin Chloride (Ditropan Tab) 5 mg PO DAILY [facility] Last Admin: 05/18/18 12:17 Dose: 5 mg Vitamin B Complex/Vit C/Folic Acid (Nephro-Riley) 1 tab PO 0800 [facility] Last Admin: 05/18/18 12:13 Dose: 1 tab Results - Vital Signs Recent Vital Signs: Last Vital Signs Temp 98.1 F 05/19/18 06:00 Pulse 79 05/19/18 06:00 Resp 20 05/19/18 06:00 BP 130/70 05/19/18 06:00 Pulse Ox 98 05/19/18 06:00 - Labs Result Diagrams: 05/19/18 06:20 05/19/18 06:20 Labs: Laboratory Results - last 24 hr 05/16/18 05/16/18 05/16/18 06:00 06:00 06:30 WBC RBC Hgb Hct MCV MCH MCHC RDW Plt Count MPV Gran % Lymph % (Auto) [place] % (Auto) Eos % (Auto) Baso % (Auto) Gran # Lymph # (Auto) [place] # (Auto) Eos # (Auto) Baso # (Auto) Sodium Potassium Chloride Carbon Dioxide Anion Gap BUN Creatinine Est GFR ( Amer) Est GFR (Non-Af Amer) Random Glucose Calcium Phosphorus Magnesium Albumin (PEP) 3.1 L Wdccu-7-Fmaacufmq 0.3 Jvbmc-9-Hofvpgghz 1.0 H Qboz-5-Jpmqfpqz 0.4 Evqc-5-Lvcdvgox 0.3 Gamma Globulins 0.6 L Abnorm Protein Band 1 TEST NOT PERFORMED Abnorm Protein Band 2 TEST NOT PERFORMED Abnorm Protein Band 3 TEST NOT PERFORMED PTH Intact Whole Molec 90 H LEIDY & SPEP Interp See note Serum Immunofixation Not detected 05/19/18 05/19/18 06:20 06:20 WBC 8.0 RBC 3.70 Hgb 11.4 L Hct 36.3 MCV 98.1 MCH 30.8 MCHC 31.4 RDW 13.9 Plt Count 264 MPV 10.5 Gran % 67.4 Lymph % (Auto) 21.6 L [place] % (Auto) 10.0 H Eos % (Auto) 0.6 L Baso % (Auto) 0.4 Gran # 5.41 Lymph # (Auto) 1.7 [place] # (Auto) 0.8 H Eos # (Auto) 0.1 Baso # (Auto) 0.03 Sodium 134 Potassium 3.6 Chloride 94 L Carbon Dioxide 33 Anion Gap 11 BUN 40 H Creatinine 1.3 H Est GFR ( Amer) 49 Est GFR (Non-Af Amer) 40 Random Glucose 120 H Calcium 8.7 Phosphorus 3.8 Magnesium 1.6 L Albumin (PEP) Aejge-5-Oxyamtyxr Zldcx-9-Jupccpfxc Gpui-1-Pbrqbyyn Wrfd-6-Twcnzoqu Gamma Globulins Abnorm Protein Band 1 Abnorm Protein Band 2 Abnorm Protein Band 3 PTH Intact Whole Molec LEIDY & SPEP Interp Serum Immunofixation Attending/Attestation - Attestation I have personally seen and examined this patient.: Yes I have fully participated in the care of the patient.: Yes I have reviewed all pertinent clinical information: Yes
--- NOTE | 2018-05-17 20:35 | PN ---
DATE: 05/15/2018 SUBJECTIVE: The patient is clinically stable. Her legs are swollen with the left heel ulcers. There is no fever. No chest pain. Breathing is better. PHYSICAL EXAMINATION: VITAL SIGNS: Temperature 98.5, heart rate 75, blood pressure 112/57, respirations 17, saturating 99%. HEAD AND NECK: Normal. No JVD. No thyromegaly. CHEST: Clear bilateral. CARDIAC: First sound, second sound normal. ABDOMEN: Soft, obese, nontender. EXTREMITIES: Bilateral leg edema seems lesser before, feel significant. IMPRESSION: 1. Possibly acute congestive heart failure. We will get a cardiology consult Dr. Schneider and we will follow him. Continue IV Lasix. Continue current treatment, get an echocardiogram. 2. Left leg ulcer, see her tomorrow, local wound care. 3. Bilateral edema, venous Doppler negative, continue Lasix, keep the legs elevated. 4. Hypertension. 5. Acute renal failure. 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 She is off ELYSSA inhibitors. We will continue diuresing the patient's input. The patient is otherwise stable. Continue current therapy. Johnny Jones MD
--- NOTE | 2018-05-17 21:35 | PN ---
DATE: 05/17/2018 SUBJECTIVE: The patient is sitting in a chair, comfortable, and in no distress. Leg edema is better. No other complaints. PHYSICAL EXAMINATION: VITAL SIGNS: Temperature is 98, heart rate is 58, blood pressure 108/56, respirations 20, and sat . HEAD AND NECK: Normal. No JVD. No thyromegaly. CHEST: Clear bilaterally. CARDIAC: First and second sounds normal. ABDOMEN: Obese and nontender. EXTREMITIES: Bilateral leg edema less than before, left is better than the right. LABORATORY DATA: Shows sodium 138, potassium 4.1, chloride 105, bicarb 27, BUN 50, and creatinine 1.4. Liver function test is normal. IMPRESSION AND PLAN: 1. Acute congestive heart failure. Echocardiogram has been done and seen by Cardiology, Dr. Schneider. Continue current medications. Echocardiogram shows left ventricular function is normal in size. Ejection fraction is 66% . Right ventricular systolic pressure is 39. No pericardial effusions. Mild mitral regurgitation. There is grade 3 reversible restrictive disease dysfunction of the left ventricle. Diastolic heart failure. Continue current therapy. Continue diuresis. 2. Acute renal failure, worsening. She is off ELYSSA inhibitor, off Mobic. We will monitor her kidney function. 3. Morbid obesity. The patient is advised to go for bariatric, she refused. 4. Hypercholesterolemia. 5. Anemia. 6. Peripheral neuropathy. 7. Urinary incontinence. 8. Continue Tylenol. Continue midodrine for blood pressure, Plavix, and Pepcid. Oxycodone for arthritis, Nephro-Riley, Neurontin. Continue gastrointestinal and deep venous thrombosis prophylaxes. Johnny Jones MD
[2018-05-18 07:31] LABS: BASO # 0.02 K/mm3 (0.0-2.0); BASO % 0.3 % (0.0-3.0); EOS # 0.1 (0.0-0.7); EOS % 1.1 % (1.5-5.0); GRAN # 4.86 (1.4-6.5); GRAN % 66.4 % (50.0-68.0); HEMOGLOBIN 11.1 g/dL (12.0-16.0); LYMPH # 1.7 (1.2-3.4); LYMPH % 23.3 % (22.0-35.0); MEAN CELL VOLUME 99.2 fl (80.0-105.0); MEAN CORPUSCULAR HGB CONC 31.3 g/dl (31.0-37.0); MONO # 0.7 (0.1-0.6); MONO % 8.9 % (1.0-6.0); RBC 3.58 10^6/uL (3.5-6.1); WHITE BLOOD COUNT 7.3 10^3/uL (4.5-11.0)
--- NOTE | 2018-05-18 07:39 | RAD ---
Date of service: 05/17/2018 PROCEDURE: Left Foot Radiographs. HISTORY: rule out osseous changes COMPARISON: None. FINDINGS: BONES: No acute fracture or destructive bony lesion identified. Mild cortical thickening is appreciated remains slightly scalloped at the distal diaphysis of the left 2nd metatarsal bone with etiology unclear. JOINTS: No subluxation or dislocation appreciated throughout. Diffuse degenerative cortical sclerosis and joint space narrowing is appreciated throughout the forefoot midfoot and hindfoot joints compatible with moderate osteoarthritis. SOFT TISSUES: Prominent midfoot and forefoot soft tissue edema is seen greater the dorsal than plantar distributions without emphysematous change or retained radiodense foreign body associated. Reticular markings are increased throughout the visualized distal leg and hindfoot subcutaneous soft tissues suggestive of cellulitis. OTHER FINDINGS: Large plantar calcaneal spur. IMPRESSION: No acute fracture or dislocation left foot with moderate diffuse degenerative joint disease appreciated. Nonspecific limited cortical thickening is seen at the distal diaphysis left 2nd metatarsal bone of uncertain origin. No erosive bony changes to suggest aggressive bony disorder. Prominent midfoot/forefoot cellulitis pattern mild cellulitis pattern seen at the visualized left leg and hindfoot subcutaneous fat.
[2018-05-18 07:58] LABS: CALCIUM 8.7 mg/dL (8.4-10.5)
[2018-05-18] MEDS ORDERED: Aminophylline 25 mg/ml Inj ONE (08:12)
[2018-05-18 11:13] LABS: ALBUMIN (PEP) 3.1 g/dL (3.8-4.8); ALPHA-1-GLOBULIN (PEP) 0.3 g/dL (0.2-0.3)
--- NOTE | 2018-05-18 12:01 | PN ---
DATE: 05/18/2018 REASON FOR CONSULTATION: Cardiac evaluation, admitted with decompensated congestive heart failure, history of nonobstructive coronary artery disease, status post cardiac catheterization many years ago. SUBJECTIVE: The patient denies any chest pain, shortness of breath, or any palpitation. OBJECTIVE: Examination as follows; GENERAL: Not in apparent distress. She is lying flat on the bed. VITAL SIGNS: Temperature afebrile, heart rate 76, and blood pressure 104/55. HEENT: PERRLA. Extraocular muscles intact. NECK: Supple. No carotid bruit or thyromegaly. CHEST: Clear to auscultation. HEART: S1 and S2 regular. ABDOMEN: Soft. EXTREMITIES: Clubbing and cyanosis negative. LABORATORY DATA: Blood workup as follows; WBC 7.3, hemoglobin 11, hematocrit 35.5, and platelet count 236. Chemistry shows sodium 130, potassium 3.9, chloride 92, carbon dioxide 33, anion gap of 9, BUN 44, creatinine 1.4, and magnesium is 1.6. The patient had echocardiography done yesterday that revealed ejection fraction 65%, trace mitral regurgitation and trace mild tricuspid regurgitation, and RV systolic pressure 63. IMPRESSION AND PLAN: A 72-year-old obese female with a body mass index 48 kg/m2, admitted with decompensated congestive heart failure secondary to diastolic dysfunction, chronic renal insufficiency with a baseline creatinine 1.4 and creatinine of 33 mL, stage III chronic kidney disease, also hypomagnesemia, history of cardiac catheterization by Dr. Moore many years ago, nonobstructive coronary artery disease, complaining of shortness of breath. Troponin remains flat 0.01 and 0.03 in face of creatinine clearance of 30 mL probably not significant. Given the multiple risk factors of coronary artery disease, we will do a stress test today. In the interim, supplement aggressively, magnesium and electrolytes as needed. Continue baby aspirin. Continue IV Lasix. Continue deep venous thrombosis prophylaxis. We will follow with you. Thank you Dr. Jones for providing us the opportunity in taking care of the patient, Jaden Martin. Shari Schneider MD DALIA
[2018-05-18] MEDS: Multivitamin Vitamin B Complex (Nephro-Vite) Tab PO SCH (12:13)
[2018-05-18] MEDS: Enoxaparin 30 mg Syringe SC SCH (12:14)
[2018-05-18] MEDS: BISOPROLOL 2.5 MG PO SCH (12:15)
[2018-05-18] MEDS: Magnesium Oxide 400 mg Tab UD PO SCH ×2 (12:18→18:03)
--- NOTE | 2018-05-18 15:49 | CP.PCM.PN ---
<Isabel Carrillo - Last Filed: 05/18/18 16:50> Subjective - Date & Time of Evaluation Date of Evaluation: 05/18/18 Time of Evaluation: 15:49 - Subjective Subjective: Podiatry Consult Note for Dr. Ocasio: 72F patient seen and evaluated for bilateral lower extremity edema and L heel ulceration. Patient is resting comfortably and in NAD. She denies any pain to the ulceration site. She denies any other pedal complaints at this time. Denies N/V/F/SOB. Objective - Vital Signs/Intake and Output Vital Signs (last 24 hours): Temp Pulse Resp BP Pulse Ox 98.3 F 74 20 117/70 98 05/18/18 00:01 05/18/18 12:00 05/18/18 12:00 05/18/18 12:12 05/18/18 00:01 Intake and Output: 05/18/18 05/18/18 06:59 18:59 Intake Total 1200 Output Total 1950 Balance -750 - Medications Medications: Current Medications Acetaminophen (Tylenol 325mg Tab) 650 mg PO Q6H PRN PRN Reason: Pain, Mild (1-3) Last Admin: 05/17/18 20:34 Dose: 650 mg Aspirin (Aspirin Chewable) 81 mg PO DAILY [facility] Last Admin: 05/18/18 12:12 Dose: 81 mg Atorvastatin Calcium (Lipitor) 10 mg PO DIN [facility] Last Admin: 05/17/18 17:47 Dose: 10 mg Clopidogrel Bisulfate (Plavix) 75 mg PO DAILY [facility] Last Admin: 05/18/18 12:13 Dose: 75 mg Duloxetine HCl (Cymbalta) 30 mg PO DAILY [facility] Last Admin: 05/18/18 12:13 Dose: 30 mg Enoxaparin Sodium (Lovenox) 30 mg SC DAILY [facility]; Protocol Last Admin: 05/18/18 12:14 Dose: 30 mg Ergocalciferol (Drisdol 50,000 Intl Units Cap) 1 cap PO Q7D [facility] Last Admin: 05/16/18 17:24 Dose: 1 cap Famotidine (Pepcid) 40 mg PO DAILY [facility] Last Admin: 05/18/18 12:13 Dose: 40 mg Ferrous Gluconate (Fergon) 324 mg PO TID [facility] Last Admin: 05/18/18 13:54 Dose: Not Given Furosemide (Lasix) 40 mg IVP BID [facility] Last Admin: 05/18/18 12:12 Dose: 40 mg Gabapentin (Neurontin) 300 mg PO TID [facility]; Protocol Last Admin: 05/18/18 13:54 Dose: Not Given Magnesium Oxide (Mag-Ox) 400 mg PO BID [facility] Stop: 05/19/18 23:59 Last Admin: 05/18/18 12:18 Dose: 400 mg Midodrine (Proamatine) 5 mg PO TID [facility] Last Admin: 05/18/18 13:54 Dose: Not Given Non-Formulary Medication (Bisoprolol [Zebeta]) 2.5 mg PO DAILY [facility] Last Admin: 05/18/18 12:15 Dose: Not Given Oxybutynin Chloride (Ditropan Tab) 5 mg PO DAILY [facility] Last Admin: 05/18/18 12:17 Dose: 5 mg Oxycodone HCl (Oxycodone Immediate Release Tab) 5 mg PO Q6 PRN PRN Reason: Pain, moderate (4-7) Vitamin B Complex/Vit C/Folic Acid (Nephro-Riley) 1 tab PO 0800 [facility] Last Admin: 05/18/18 12:13 Dose: 1 tab - Labs Labs: 05/18/18 07:00 05/18/18 07:00 - Constitutional Appears: Non-toxic, No Acute Distress - Head Exam Head Exam: ATRAUMATIC, NORMOCEPHALIC - Extremities Exam Additional comments: B/L lower extremity focused exam: Vascular: DP/PT nonpalpable secondary to edema, CFT < 3 seconds to all digits, TG warm to cool, pedal hair absent, +3 pitting edema noted pretibial perimalleolar and dorsum of the foot b/l Ortho: Pain upon palpation to b/l legs, no pain with calf compression Neuro: Gross and protective sensation intact Derm: Ulceration noted to the lateral aspect of the left posterior heel, irregular border with fibrogranular base, no drainage, no malodor, no tunneling or tracking noted, no other open lesions - Neurological Exam Neurological Exam: Alert, Awake - Psychiatric Exam Psychiatric exam: Normal Affect, Normal Mood Assessment and Plan - Assessment and Plan (Free Text) Assessment: 72F patient seen and evaluated for bilateral lower extremity edema and L heel ulceration Plan: Patient seen and evaluated with Dr. Ocasio Chart, labs and vitals reviewed; afebrile, WBC 7.3 LE venous doppler reviewed; no DVT Left foot culture: staph auereus and corynebacterium L foot x-ray; no acute fracture or dislocation LE arterial duplex taken; read pending Local wound care to L foot: optifoam Physical therapy ordered for Darco heel relief shoe Will continue to follow <Lyudmila Ocasoi - Last Filed: 05/22/18 18:08> Objective - Vital Signs/Intake and Output Vital Signs (last 24 hours): Temp Pulse Resp BP Pulse Ox 98.2 F 62 18 118/73 98 05/22/18 14:00 05/22/18 14:00 05/22/18 14:00 05/22/18 14:00 05/22/18 14:00 Intake and Output: 05/22/18 05/22/18 06:59 18:59 Intake Total 60 Balance 60 - Medications Medications: Current Medications Acetaminophen (Tylenol 325mg Tab) 650 mg PO Q6H PRN PRN Reason: Pain, Mild (1-3) Last Admin: 05/21/18 23:53 Dose: 650 mg Aspirin (Aspirin Chewable) 81 mg PO DAILY [facility] Last Admin: 05/22/18 10:40 Dose: 81 mg Atorvastatin Calcium (Lipitor) 10 mg PO DIN [facility] Last Admin: 05/21/18 17:20 Dose: 10 mg Clopidogrel Bisulfate (Plavix) 75 mg PO DAILY [facility] Last Admin: 05/22/18 10:40 Dose: 75 mg Duloxetine HCl (Cymbalta) 30 mg PO DAILY [facility] Last Admin: 05/22/18 10:40 Dose: 30 mg Enoxaparin Sodium (Lovenox) 30 mg SC DAILY [facility]; Protocol Last Admin: 05/22/18 14:27 Dose: 30 mg Ergocalciferol (Drisdol 50,000 Intl Units Cap) 1 cap PO Q7D [facility] Last Admin: 05/16/18 17:24 Dose: 1 cap Famotidine (Pepcid) 40 mg PO DAILY [facility] Last Admin: 05/22/18 10:40 Dose: 40 mg Ferrous Gluconate (Fergon) 324 mg PO TID [facility] Last Admin: 05/22/18 14:26 Dose: 324 mg Furosemide (Lasix) 40 mg IVP DAILY [facility] Gabapentin (Neurontin) 300 mg PO TID [facility]; Protocol Last Admin: 05/22/18 14:25 Dose: 300 mg Midodrine (Proamatine) 5 mg PO TID [facility] Last Admin: 05/22/18 14:29 Dose: 5 mg Non-Formulary Medication (Bisoprolol [Zebeta]) 2.5 mg PO DAILY [facility] Last Admin: 05/22/18 10:40 Dose: Not Given Oxybutynin Chloride (Ditropan Tab) 5 mg PO DAILY [facility] Last Admin: 05/22/18 10:40 Dose: 5 mg Vitamin B Complex/Vit C/Folic Acid (Nephro-Riley) 1 tab PO 0800 [facility] Last Admin: 05/22/18 08:44 Dose: 1 tab - Labs Labs: 05/21/18 07:30 05/22/18 08:05 Attending/Attestation - Attestation I have personally seen and examined this patient.: Yes I have fully participated in the care of the patient.: Yes I have reviewed all pertinent clinical information, including history, physical exam and plan: Yes
--- NOTE | 2018-05-18 15:55 | CP.PCM.PN ---
Subjective - Date & Time of Evaluation Date of Evaluation: 05/18/18 Time of Evaluation: 15:55 - Subjective Subjective: Nephrology Consultation Note: Assessment: Stable dCHF exacerbation with fluid overload Hypertensive Chronic Kidney Disease (I12.9) Chronic Kidney Disease (N18.3) Stage 3 with ? mg proteinuria (R80.9) Anemia (D64.9), morbid obesity hx of NSAIDs use hyperkalemia Plan No acute need for renal replacement therapy at this time. . Hypertension control with meds as ordered. Maintain hemodynamics stable. Avoid hypotension. Patient not on ACEI/ARB due to hyperkalemia Monitor Input/Output, daily weights and renal function with basic metabolic panel advised to stop nsaids diurese with lasix 40 mg bid as tolerated by BP. reviewed echo results. appreciate cardio eval. will add metolazone for few days low K diet started iron, MVI and weekly vit D Check urine spot protein/creatinine, albumin/creatinine ratio, urine for eosinophils. Check HIV/Hep B and Hep C serology Anemia work up with TSAT/Ferritin/Vitamin B12/folate, serum protein electrophoresis with immunofixation, serum free light chain assay ([place]/Lambda) Check for 25-OH vitamin D, iPTH, phosphorus level. Dose meds/antibiotics for reduced GFR. Avoid fleets enema/magnesium based laxatives. Avoid nephrotoxins/NSAIDs/ iodinated contrast (unless needed emergently) Glycemic control. need to loose weight. Further work up/management as per primary team Thanks for allowing me to participate in care of your patient. Will follow patient with you. Please call if any Qs. had d/w team Dr Steve Alvarez Office: [phone] Chief Complaint; leg swelling Reason for consult: Acute Kidney Injury HPI: Pt is a72 F with hx of hypertension (years) ? CHF, morbid obesity presented with complaints of worsening leg swelling and weight gain over last few days Denies OTC/herbal meds but takes NSAIDs as meloxicam No recent iodinated contrast exposure. Noted obvious episodes of low BP. pt not aware about kidney diseas ein past likely has baseline CKD 3 with cr 1.1 ROS: staff helped in faroese interpretation Cardiovascular: No chest pain. Pulmonary: c/o shortness of breath getting better Gastrointestinal: denies abdominal pain No nausea. No vomiting. Genitourinary: No pain while urinating. Denies blood in urine. All other negative except as mentioned in HPI Physical Examination: General Appearance: Comfortable, in no acute respiratory distress, co-operative . obese Vitals reviewed and noted as below Head; Atraumatic, normocephalic ENT: no ulcers no thrush. Tongue is midline. Oropharynx: no rash or ulcers. EYES: Pupils are equal, round and reactive to light accommodation. Eye muscles and extraocular movement intact. Sclera is anicteric. Neck; supple no lymphadenopathy, no thyromegaly or bruit Lungs: Normal respiratory rate/effort. Breath sounds bilateral reduced at bases but better Heart: Normal rate. s1s2 normal. No rub or gallop. Extremities: 2+ edema. No varicose veins Neurological: Patient is alert, awake and oriented to person, place and time. No focal deficit. Strength bilateral appropriate and equal Skin: Warm and dry. Normal turgor. No rash. Palpitation: Normal elasticity for age Abdomen: Abdomen is soft. Bowel sounds +. There is no abdominal tenderness, no guarding/rigidity no organomegaly Psych: normal insight and normal affect/mood MSK: no joint tenderness or swelling. Digits and nails normal, no deformity : kidney or bladder not palpable Labs/imaging reviewed. Past medical history, past surgical history, family history, social history, allergy reviewed and noted as below Family hx: no hx of CKD. Rest non-contributory renal sono: mild left renal atrophy UA SG 1.025, 100 protein Objective - Vital Signs/Intake and Output Vital Signs (last 24 hours): Temp Pulse Resp BP Pulse Ox 98.3 F 74 20 117/70 98 05/18/18 00:01 05/18/18 12:00 05/18/18 12:00 05/18/18 12:12 05/18/18 00:01 Intake and Output: 05/18/18 05/18/18 06:59 18:59 Intake Total 1200 Output Total 1950 Balance -750 - Medications Medications: Current Medications Acetaminophen (Tylenol 325mg Tab) 650 mg PO Q6H PRN PRN Reason: Pain, Mild (1-3) Last Admin: 05/17/18 20:34 Dose: 650 mg Aspirin (Aspirin Chewable) 81 mg PO DAILY [facility] Last Admin: 05/18/18 12:12 Dose: 81 mg Atorvastatin Calcium (Lipitor) 10 mg PO DIN [facility] Last Admin: 05/17/18 17:47 Dose: 10 mg Clopidogrel Bisulfate (Plavix) 75 mg PO DAILY [facility] Last Admin: 05/18/18 12:13 Dose: 75 mg Duloxetine HCl (Cymbalta) 30 mg PO DAILY [facility] Last Admin: 05/18/18 12:13 Dose: 30 mg Enoxaparin Sodium (Lovenox) 30 mg SC DAILY [facility]; Protocol Last Admin: 05/18/18 12:14 Dose: 30 mg Ergocalciferol (Drisdol 50,000 Intl Units Cap) 1 cap PO Q7D [facility] Last Admin: 05/16/18 17:24 Dose: 1 cap Famotidine (Pepcid) 40 mg PO DAILY [facility] Last Admin: 05/18/18 12:13 Dose: 40 mg Ferrous Gluconate (Fergon) 324 mg PO TID [facility] Last Admin: 05/18/18 13:54 Dose: Not Given Furosemide (Lasix) 40 mg IVP BID [facility] Last Admin: 05/18/18 12:12 Dose: 40 mg Gabapentin (Neurontin) 300 mg PO TID [facility]; Protocol Last Admin: 05/18/18 13:54 Dose: Not Given Magnesium Oxide (Mag-Ox) 400 mg PO BID [facility] Stop: 05/19/18 23:59 Last Admin: 05/18/18 12:18 Dose: 400 mg Midodrine (Proamatine) 5 mg PO TID [facility] Last Admin: 05/18/18 13:54 Dose: Not Given Non-Formulary Medication (Bisoprolol [Zebeta]) 2.5 mg PO DAILY [facility] Last Admin: 05/18/18 12:15 Dose: Not Given Oxybutynin Chloride (Ditropan Tab) 5 mg PO DAILY [facility] Last Admin: 05/18/18 12:17 Dose: 5 mg Oxycodone HCl (Oxycodone Immediate Release Tab) 5 mg PO Q6 PRN PRN Reason: Pain, moderate (4-7) Vitamin B Complex/Vit C/Folic Acid (Nephro-Riley) 1 tab PO 0800 [facility] Last Admin: 05/18/18 12:13 Dose: 1 tab - Labs Labs: 05/18/18 07:00 05/18/18 07:00
--- NOTE | 2018-05-18 16:08 | CARD ---
APPROVED REPORT Date of service: 05/18/2018 Protocol: LEXISCAN Test Type: Lexiscan Sestamibi Stress Test Attending Physician: Dr. Shari Schneider Referring Physician: Dr. Johnny Jones Test Indications: Chest Pain Height:5 ft 0 in Weight:244lbs Medications: tylenol, aspirin, lipitor, plavix cymbalta, lovenox, drisdol, pepcid fergon, lasix, proamatine, ditropan bisoprolol, oxycodone Medical History: 72 year old female with h/o htn, high cholesterol, CHF, GERD, arthritis, left knee replacement and neuropathy Target HR: 147 bpm Resting ECG: right bundle branch block,NSR Resting Heart Rate: 80 bpm Resting Blood Pressure: 142/86mmHg Submaximum (85%): 125 bpm PROCEDURE Pharmacologic stress testing was performed using 0.4mg per 5ml of regadenoson given intravenously over 7-10 seconds. Reversal agent aminophyline 100 mg, given intravenously for Headache. POST EXERCISE Reason for Termination: Protocol completed Target HR: No Max HR: 83 bpm 65% of Maximum Predicted HR: 147 bpm Exercise duration: 00:30 min:sec, 0 Stage Exercise capacity: 1.0METs Max Blood Pressure: 142/86mmHg Blood Pressure response to exercise: normal resting BP - appropriate response Heart Rate response to exercise: appropriate Chest Pain: No, none Angina index: 0 Arrhythmia: No, none ST Change: No, none from base line Deviation: 0 mm TEST SUMMARY [id number]. INFUSIONDOSE 100:[id number]/.1. [id number]/.0. INTERPRETATION Stress EKG Conclusion: Negative IV Lexiscan for ischemia and for chest pain, Nuclear scan to yuriyw. Signed by Shari Schneider Electronically Approved: 05/18/2018 10:02:53 EXAM: Myocardial Perfusion REST/STRESS Stress Test Type: Pharmacologic Imaging Protocol The imaging protocol used to acquire images was Rest Tc-99m/stress Tc-99m 1 day Rest Spect myocardial perfusion imaging was performed in supine position 45 minutes following the injection of 10.3 mCi of Tc-99 Myoview. At peak stress, the patient was injected intravenously with 30.4mCi of Tc-99 tetrofosmin after an infusion time of 0 minutes and 10 seconds. Gated Stress Spect was performed 65 minutes after intravenous Tc-99 Myoview injection. The images were gated to evaluate regional wall motion and calculate ventricular ejection fraction.Images were reconstructed using backfilter projection method in short horizontal and verticle long axis. Spect slices were generated. LV Perfusion The quality of the study is good. The left ventricle is normal in size. The right ventricle is unremarkable. The lung uptake is normal. The distribution of tracer reveals moderately and diffusely decreased perfusion in the inferior wall on the stress study. The remainder of the LV myocardium is unremarkable. The rest myocardial perfusion study shows no significant change. Wall Motion Wall motion study shows good contractility of the left ventricle. LVEF = 74%. Conclusion 1. Essentially normal SPECT myocardial perfusion study. 2. Fixed, inferior defect is most likely due to low lying breast/ soft tissue attenuation. 3. Normal gated wall motion of the left ventricle.
[2018-05-18] MEDS: metOLazone 5 MG TAB PO SCH (18:03)
--- NOTE | 2018-05-18 22:09 | US ---
PROCEDURE: Lower extremity JAKY exam HISTORY: Peripheral vascular disease with pain and ulceration PHYSICIAN(S): Dylan Ryan MD. FINDINGS: The resting JAKY's are normal: right, 0.97and left, 0.99. The brachial systolic pressures are symmetric. The low thigh pressures and waveforms are relatively normal. The calf PVR waveforms augment normally. No significant gradients are noted across the thighs. The ankle and metatarsal waveforms are relatively normal and symmetric. No significant pressure gradients are noted across the lower legs. IMPRESSION: 1. Relatively normal JAKY and PVR examination at rest.
[2018-05-19 07:00] LABS: BASO # 0.03 K/mm3 (0.0-2.0); BASO % 0.4 % (0.0-3.0); EOS # 0.1 (0.0-0.7); EOS % 0.6 % (1.5-5.0); GRAN # 5.41 (1.4-6.5); GRAN % 67.4 % (50.0-68.0); HEMOGLOBIN 11.4 g/dL (12.0-16.0); LYMPH # 1.7 (1.2-3.4); LYMPH % 21.6 % (22.0-35.0); MEAN CELL VOLUME 98.1 fl (80.0-105.0); MEAN CORPUSCULAR HEMOGLOBIN 30.8 pg (25.0-35.0); MEAN CORPUSCULAR HGB CONC 31.4 g/dl (31.0-37.0); MEAN PLATELET VOLUME 10.5 fl (7.0-11.0); MONO # 0.8 (0.1-0.6); RBC 3.7 10^6/uL (3.5-6.1); RED CELL DISTRIBUTION WIDTH 13.9 % (11.5-14.5)
[2018-05-19 07:17] LABS: CALCIUM 8.7 mg/dL (8.4-10.5)
--- NOTE | 2018-05-19 08:12 | CP.PCM.PN ---
Subjective - Date & Time of Evaluation Date of Evaluation: 05/19/18 Time of Evaluation: 06:50 - Subjective Subjective: Awake, alert, no distress Reason for consultation and follow up: Seen and examined by me and Dr. Schneider Objective - Vital Signs/Intake and Output Vital Signs (last 24 hours): Temp Pulse Resp BP Pulse Ox 98.6 F 110 H 18 122/66 98 05/18/18 18:00 05/18/18 18:00 05/18/18 18:00 05/18/18 18:03 05/18/18 00:01 - Medications Medications: Current Medications Acetaminophen (Tylenol 325mg Tab) 650 mg PO Q6H PRN PRN Reason: Pain, Mild (1-3) Last Admin: 05/18/18 23:09 Dose: 650 mg Aspirin (Aspirin Chewable) 81 mg PO DAILY [facility] Last Admin: 05/18/18 12:12 Dose: 81 mg Atorvastatin Calcium (Lipitor) 10 mg PO DIN [facility] Last Admin: 05/18/18 18:03 Dose: 10 mg Clopidogrel Bisulfate (Plavix) 75 mg PO DAILY [facility] Last Admin: 05/18/18 12:13 Dose: 75 mg Duloxetine HCl (Cymbalta) 30 mg PO DAILY [facility] Last Admin: 05/18/18 12:13 Dose: 30 mg Enoxaparin Sodium (Lovenox) 30 mg SC DAILY [facility]; Protocol Last Admin: 05/18/18 12:14 Dose: 30 mg Ergocalciferol (Drisdol 50,000 Intl Units Cap) 1 cap PO Q7D [facility] Last Admin: 05/16/18 17:24 Dose: 1 cap Famotidine (Pepcid) 40 mg PO DAILY [facility] Last Admin: 05/18/18 12:13 Dose: 40 mg Ferrous Gluconate (Fergon) 324 mg PO TID [facility] Last Admin: 05/18/18 18:02 Dose: 324 mg Furosemide (Lasix) 40 mg IVP BID [facility] Last Admin: 05/18/18 18:03 Dose: 40 mg Gabapentin (Neurontin) 300 mg PO TID [facility]; Protocol Last Admin: 05/18/18 18:02 Dose: 300 mg Magnesium Oxide (Mag-Ox) 400 mg PO BID [facility] Stop: 05/19/18 23:59 Last Admin: 05/18/18 18:03 Dose: 400 mg Metolazone (Zaroxolyn) 5 mg PO BID [facility] Stop: 05/21/18 18:01 Last Admin: 05/18/18 18:03 Dose: 5 mg Midodrine (Proamatine) 5 mg PO TID [facility] Last Admin: 05/18/18 18:03 Dose: 5 mg Non-Formulary Medication (Bisoprolol [Zebeta]) 2.5 mg PO DAILY [facility] Last Admin: 05/18/18 12:15 Dose: Not Given Oxybutynin Chloride (Ditropan Tab) 5 mg PO DAILY [facility] Last Admin: 05/18/18 12:17 Dose: 5 mg Vitamin B Complex/Vit C/Folic Acid (Nephro-Riley) 1 tab PO 0800 [facility] Last Admin: 05/18/18 12:13 Dose: 1 tab - Labs Labs: 05/19/18 06:20 05/19/18 06:20 - Constitutional Appears: Non-toxic, No Acute Distress - Head Exam Head Exam: NORMAL INSPECTION, NORMOCEPHALIC - Eye Exam Eye Exam: Normal appearance Pupil Exam: NORMAL ACCOMODATION - ENT Exam ENT Exam: Mucous Membranes Moist, Normal Exam - Respiratory Exam Respiratory Exam: Decreased Breath Sounds, NORMAL BREATHING PATTERN - Cardiovascular Exam Cardiovascular Exam: +S1, +S2 - GI/Abdominal Exam GI & Abdominal Exam: Soft, Normal Bowel Sounds - Extremities Exam Additional comments: 3+ edema - Neurological Exam Neurological Exam: Alert, Awake - Psychiatric Exam Psychiatric exam: Normal Affect, Normal Mood - Skin Skin Exam: Dry, Normal Color, Warm Assessment and Plan - Assessment and Plan (Free Text) Assessment: A 72 year old female who came in to the ER due to bilateral leg edema.History includes congestive heart failure and hypertension, morbidly obese, chronic renal insufficency,non obstructive coronary artery disease. Admitted with decompensated diastolic dysfunction congestive heart failure. Stress test was done yesterday and normal results. LVEF 71%. Renal on consult. Podiatry on consult for heel ulcers. Left heel wound culture positive for Staph corynebacterium. Plan: Denies chest pain or shortness of breath Heart rate stable Blood pressure stable Continue to diurese Renal on consult On ASA 81 mg daily, Lipitor 10 mg daily, Plavix 75 mg daily, Lovenox 30 mg daily, Lasix 40 mg BID Zaroxylyn 5 mg BID Midorine 5 mg TID Continue current treatment Continue current medications Will follow up Plan and treatment discussed with Dr. Schneider
--- NOTE | 2018-05-19 08:17 | CP.PCM.PN ---
<Isabel Carrillo - Last Filed: 05/19/18 08:17> Subjective - Date & Time of Evaluation Date of Evaluation: 05/19/18 Time of Evaluation: 08:13 - Subjective Subjective: Podiatry Consult Note for Dr. Ocasio: 72F patient seen and evaluated for bilateral lower extremity edema and L heel ulceration. Patient is resting comfortably, denies any acute events overnight. She denies pain to the ulceration site this morning. Denies N/V/F/SOB. Objective - Vital Signs/Intake and Output Vital Signs (last 24 hours): Temp Pulse Resp BP Pulse Ox 98.6 F 110 H 18 122/66 98 05/18/18 18:00 05/18/18 18:00 05/18/18 18:00 05/18/18 18:03 05/18/18 00:01 - Medications Medications: Current Medications Acetaminophen (Tylenol 325mg Tab) 650 mg PO Q6H PRN PRN Reason: Pain, Mild (1-3) Last Admin: 05/18/18 23:09 Dose: 650 mg Aspirin (Aspirin Chewable) 81 mg PO DAILY [facility] Last Admin: 05/18/18 12:12 Dose: 81 mg Atorvastatin Calcium (Lipitor) 10 mg PO DIN [facility] Last Admin: 05/18/18 18:03 Dose: 10 mg Clopidogrel Bisulfate (Plavix) 75 mg PO DAILY [facility] Last Admin: 05/18/18 12:13 Dose: 75 mg Duloxetine HCl (Cymbalta) 30 mg PO DAILY [facility] Last Admin: 05/18/18 12:13 Dose: 30 mg Enoxaparin Sodium (Lovenox) 30 mg SC DAILY [facility]; Protocol Last Admin: 05/18/18 12:14 Dose: 30 mg Ergocalciferol (Drisdol 50,000 Intl Units Cap) 1 cap PO Q7D [facility] Last Admin: 05/16/18 17:24 Dose: 1 cap Famotidine (Pepcid) 40 mg PO DAILY [facility] Last Admin: 05/18/18 12:13 Dose: 40 mg Ferrous Gluconate (Fergon) 324 mg PO TID [facility] Last Admin: 05/18/18 18:02 Dose: 324 mg Furosemide (Lasix) 40 mg IVP BID [facility] Last Admin: 05/18/18 18:03 Dose: 40 mg Gabapentin (Neurontin) 300 mg PO TID [facility]; Protocol Last Admin: 05/18/18 18:02 Dose: 300 mg Magnesium Oxide (Mag-Ox) 400 mg PO BID [facility] Stop: 05/19/18 23:59 Last Admin: 05/18/18 18:03 Dose: 400 mg Metolazone (Zaroxolyn) 5 mg PO BID [facility] Stop: 05/21/18 18:01 Last Admin: 05/18/18 18:03 Dose: 5 mg Midodrine (Proamatine) 5 mg PO TID [facility] Last Admin: 05/18/18 18:03 Dose: 5 mg Non-Formulary Medication (Bisoprolol [Zebeta]) 2.5 mg PO DAILY [facility] Last Admin: 05/18/18 12:15 Dose: Not Given Oxybutynin Chloride (Ditropan Tab) 5 mg PO DAILY [facility] Last Admin: 05/18/18 12:17 Dose: 5 mg Vitamin B Complex/Vit C/Folic Acid (Nephro-Riley) 1 tab PO 0800 [facility] Last Admin: 05/18/18 12:13 Dose: 1 tab - Labs Labs: 05/19/18 06:20 05/19/18 06:20 - Constitutional Appears: Well, Non-toxic, No Acute Distress - Head Exam Head Exam: ATRAUMATIC, NORMOCEPHALIC - Extremities Exam Additional comments: B/L lower extremity focused exam: Vascular: DP/PT nonpalpable secondary to edema, CFT < 3 seconds to all digits, TG warm to cool, pedal hair absent, +2 pitting edema noted pretibial perimalleolar and dorsum of the foot b/l Ortho: Pain upon palpation to b/l legs, no pain with calf compression Neuro: Gross and protective sensation intact Derm: Ulceration noted to the lateral aspect of the left posterior heel, irregular border with fibrogranular base, no drainage, no malodor, no tunneling or tracking noted, no other open lesions - Neurological Exam Neurological Exam: Alert, Awake, Oriented x3 - Psychiatric Exam Psychiatric exam: Normal Affect, Normal Mood Assessment and Plan - Assessment and Plan (Free Text) Assessment: 72F patient seen and evaluated for bilateral lower extremity edema and L heel ulceration Plan: Patient seen and evaluated with Dr. Ocasio Chart, labs and vitals reviewed; afebrile, WBC 7.3 LE venous doppler reviewed; no DVT Left foot culture: staph auereus and corynebacterium L foot x-ray; no acute fracture or dislocation LE arterial duplex taken; relatively abnormal JAKY/PVR at rest Local wound care to L foot: optifoam Physical therapy ordered for Darco heel relief shoe Will continue to follow <Lyudmila Ocasio - Last Filed: 05/22/18 18:07> Objective - Vital Signs/Intake and Output Vital Signs (last 24 hours): Temp Pulse Resp BP Pulse Ox 98.2 F 62 18 118/73 98 05/22/18 14:00 05/22/18 14:00 05/22/18 14:00 05/22/18 14:00 05/22/18 14:00 Intake and Output: 05/22/18 05/22/18 06:59 18:59 Intake Total 60 Balance 60 - Medications Medications: Current Medications Acetaminophen (Tylenol 325mg Tab) 650 mg PO Q6H PRN PRN Reason: Pain, Mild (1-3) Last Admin: 05/21/18 23:53 Dose: 650 mg Aspirin (Aspirin Chewable) 81 mg PO DAILY [facility] Last Admin: 05/22/18 10:40 Dose: 81 mg Atorvastatin Calcium (Lipitor) 10 mg PO DIN [facility] Last Admin: 05/21/18 17:20 Dose: 10 mg Clopidogrel Bisulfate (Plavix) 75 mg PO DAILY [facility] Last Admin: 05/22/18 10:40 Dose: 75 mg Duloxetine HCl (Cymbalta) 30 mg PO DAILY [facility] Last Admin: 05/22/18 10:40 Dose: 30 mg Enoxaparin Sodium (Lovenox) 30 mg SC DAILY [facility]; Protocol Last Admin: 05/22/18 14:27 Dose: 30 mg Ergocalciferol (Drisdol 50,000 Intl Units Cap) 1 cap PO Q7D [facility] Last Admin: 05/16/18 17:24 Dose: 1 cap Famotidine (Pepcid) 40 mg PO DAILY [facility] Last Admin: 05/22/18 10:40 Dose: 40 mg Ferrous Gluconate (Fergon) 324 mg PO TID [facility] Last Admin: 05/22/18 14:26 Dose: 324 mg Furosemide (Lasix) 40 mg IVP DAILY [facility] Gabapentin (Neurontin) 300 mg PO TID [facility]; Protocol Last Admin: 05/22/18 14:25 Dose: 300 mg Midodrine (Proamatine) 5 mg PO TID [facility] Last Admin: 05/22/18 14:29 Dose: 5 mg Non-Formulary Medication (Bisoprolol [Zebeta]) 2.5 mg PO DAILY [facility] Last Admin: 05/22/18 10:40 Dose: Not Given Oxybutynin Chloride (Ditropan Tab) 5 mg PO DAILY [facility] Last Admin: 05/22/18 10:40 Dose: 5 mg Vitamin B Complex/Vit C/Folic Acid (Nephro-Riley) 1 tab PO 0800 [facility] Last Admin: 05/22/18 08:44 Dose: 1 tab - Labs Labs: 05/21/18 07:30 05/22/18 08:05 Attending/Attestation - Attestation I have personally seen and examined this patient.: Yes I have fully participated in the care of the patient.: Yes I have reviewed all pertinent clinical information, including history, physical exam and plan: Yes
[2018-05-19] MEDS ORDERED: Magnesium Sulfate 2 gm/50 ml 2 GM/50 ML BAG IVPB ONE (10:55)
[2018-05-19] MEDS: Potassium Chloride 20 mEq ER Tab PO SCH (11:33)
[2018-05-19] MEDS: Multivitamin Vitamin B Complex (Nephro-Vite) Tab PO SCH (11:33)
[2018-05-19] MEDS: Enoxaparin 30 mg Syringe SC SCH (11:34)
[2018-05-19] MEDS: BISOPROLOL 2.5 MG PO SCH (11:35)
[2018-05-19] MEDS: metOLazone 5 MG TAB PO SCH ×2 (11:35→17:14)
[2018-05-19] MEDS: Magnesium Oxide 400 mg Tab UD PO SCH ×2 (11:35→17:10)
--- NOTE | 2018-05-19 12:03 | PN ---
DATE: 05/18/2018 SUBJECTIVE: The patient is comfortable. The leg swelling is much better. She went for a stress testing by Dr. Schneider. She has no chest pain now or short of breath, but her leg is still swollen. She is better. No other complaints. PHYSICAL EXAMINATION: VITAL SIGNS: Temperature 98.6, heart rate 98, blood pressure 122/87, and respirations 18. HEAD AND NECK: Normal, no JVD, no thyromegaly. CHEST: Clear, bilateral good air entry. CARDIAC: First sound and second sound normal. No murmur, rub, or gallop. ABDOMEN: Soft, obese, and nontender. EXTREMITIES: Bilateral mild edema, right more than left. The left heel is covered with gauze. LABORATORY DATA: On 05/18/2018, white count 7.3, hemoglobin 11.1, hematocrit 35.5, and platelets 236. The patient had sodium 136, potassium 3.9, chloride 98, bicarb 33, BUN 44, creatinine 1.4, hemoglobin A1c 5.2, and magnesium is low at 1.6. IMPRESSION AND PLAN: 1. Bilateral leg edema, congestive heart failure, diastolic heart failure. Continue Lasix, monitoring leg swelling. Keep the leg elevated. 2. Diastolic heart failure, getting the stress test today. Results still not available. 3. Chronic renal insufficiency. Creatinine runs 1.4 and 1.3. We will monitor with the dynamite reclaimer. Continue Lasix and monitor her electrolytes. 4. Osteoarthritis. She does complain of arthritis, mainly in left shoulder and her back. She got epidural injections several times with no help. We will get an x-ray of the left shoulder and see how she does. 5. Urine incontinence, anemia. The patient was advised several times she get a colonoscopy and was not done. Continue current medicines. Continue gastrointestinal and deep venous thrombosis prophylaxis. Follow up clinically. Johnny Jones MD
--- NOTE | 2018-05-19 14:30 | PN ---
DATE: 05/19/2018 REASON FOR CONSULTATION AND FOLLOWUP: Cardiac evaluation, admitted with decompensated congestive heart failure, history of nonobstructive coronary artery disease, status post cardiac catheterization by Dr. Moore. SUBJECTIVE: The patient denies any chest pain, shortness of breath, or any palpitation. Awake and not in apparent distress. This note is in addition to dictated by the nurse practitioner. In summary, this is a 72-year-old obese female with past medical history significant for obesity, admitted with decompensated congestive heart failure, congestive diastolic dysfunction, chronic renal insufficiency with a baseline creatinine 1.4 with 33 mL creatinine clearance, stage III chronic kidney disease, history of cardiac catheterization many years ago by Dr. Moore, is negative. Yesterday, the patient underwent a stress test; Myocardial perfusion study Lexiscan that revealed essentially normal myocardial perfusion with ejection fraction of 74%. Prior to that, the patient had an echocardiography on 05/16/2018 that revealed ejection fraction of 65%, trace mitral regurgitation, mild tricuspid regurgitation, RV systolic pressure 39. RECOMMENDATIONS: Continue aggressive medical treatment, emphasis on weight reduction, modification of lifestyle, modification of risk factor for coronary artery disease, monitor renal function. Continue Lipitor. Continue Lasix. Continue antibiotics. Continue deep vein thrombosis prophylaxis. We will discuss with Dr. Jones, why the patient is on Plavix, reason unknown. The patient does not know herself. We will follow with you. Thank you Dr. Jones for providing us the opportunity in taking care of the patient Jaden Martin. No further cardiac workup is planned or warranted. The patient is cleared from cardiology point of view to be discharged once the patient is stable medically. Shari Schneider MD
--- NOTE | 2018-05-19 14:56 | CP.PCM.PN ---
Subjective - Date & Time of Evaluation Date of Evaluation: 05/19/18 Time of Evaluation: 14:55 - Subjective Subjective: Nephrology Consultation Note: Assessment: Stable dCHF exacerbation with fluid overload Hypertensive Chronic Kidney Disease (I12.9) Chronic Kidney Disease (N18.3) Stage 3 with ? mg proteinuria (R80.9) Anemia (D64.9), morbid obesity hx of NSAIDs use hyperkalemia Plan No acute need for renal replacement therapy at this time. . Hypertension control with meds as ordered. Maintain hemodynamics stable. Avoid hypotension. Patient not on ACEI/ARB due to hyperkalemia Monitor Input/Output, daily weights and renal function with basic metabolic sims el advised to stop nsaids diurese with lasix 40 mg bid as tolerated by BP. reviewed echo results. ap preciate cardio eval. will add metolazone for few days only low K diet started iron, MVI and weekly vit D Check urine spot protein/creatinine, albumin/creatinine ratio, urine for eosinophils. Check HIV/Hep B and Hep C serology Anemia work up with TSAT/Ferritin/Vitamin B12/folate, serum protein elec trophoresis with immunofixation, serum free light chain assay ([place]/Lambda) Check for 25-OH vitamin D, iPTH, phosphorus level. Dose meds/antibiotics for reduced GFR. Avoid fleets enema/magnesium based laxatives. Avoid nephrotoxins/NSAIDs/ iodinated contrast (unless needed emergently) Glycemic control. need to loose weight. Further work up/management as per primary team Thanks for allowing me to participate in care of your patient. Will follow patient with you. Please call if any Qs. had d/w team Dr Steve Alvarez Office: [phone] Chief Complaint; leg swelling Reason for consult: Acute Kidney Injury HPI: Pt is a72 F with hx of hypertension (years) ? CHF, morbid obesity presented with complaints of worsening leg swelling and weight gain over last few days Denies OTC/herbal meds but takes NSAIDs as meloxicam No recent iodinated contrast exposure. Noted obvious episodes of low BP. pt not aware about kidney diseas ein past likely has baseline CKD 3 with cr 1.1 ROS: MARIA A helped in bengali interpretation Cardiovascular: No chest pain. Pulmonary: no shortness of breath now Gastrointestinal: denies abdominal pain No nausea. No vomiting. Genitourinary: No pain while urinating. Denies blood in urine. All other negative except as mentioned in HPI Physical Examination: General Appearance: Comfortable, in no acute respiratory distress, co-operative . obese Vitals reviewed and noted as below Head; Atraumatic, normocephalic ENT: no ulcers no thrush. Tongue is midline. Oropharynx: no rash or ulcers. EYES: Pupils are equal, round and reactive to light accommodation. Eye muscles and extraocular movement intact. Sclera is anicteric. Neck; supple no lymphadenopathy, no thyromegaly or bruit Lungs: Normal respiratory rate/effort. Breath sounds bilateral clearer Heart: Normal rate. s1s2 normal. No rub or gallop. Extremities: 2+ edema. No varicose veins Neurological: Patient is alert, awake and oriented to person, place and time. No focal deficit. Strength bilateral appropriate and equal Skin: Warm and dry. Normal turgor. No rash. Palpitation: Normal elasticity for age Abdomen: Abdomen is soft. Bowel sounds +. There is no abdominal tenderness, no guarding/rigidity no organomegaly Psych: normal insight and normal affect/mood MSK: no joint tenderness or swelling. Digits and nails normal, no deformity : kidney or bladder not palpable Labs/imaging reviewed. Past medical history, past surgical history, family history, social history, allergy reviewed and noted as below Family hx: no hx of CKD. Rest non-contributory renal sono: mild left renal atrophy UA SG 1.025, 100 protein Objective - Vital Signs/Intake and Output Vital Signs (last 24 hours): Temp Pulse Resp BP Pulse Ox 98.1 F 79 20 118/68 98 05/19/18 06:00 05/19/18 06:00 05/19/18 06:00 05/19/18 11:32 05/19/18 06:00 - Medications Medications: Current Medications Acetaminophen (Tylenol 325mg Tab) 650 mg PO Q6H PRN PRN Reason: Pain, Mild (1-3) Last Admin: 05/19/18 12:05 Dose: 650 mg Aspirin (Aspirin Chewable) 81 mg PO DAILY [facility] Last Admin: 05/19/18 11:35 Dose: 81 mg Atorvastatin Calcium (Lipitor) 10 mg PO DIN [facility] Last Admin: 05/18/18 18:03 Dose: 10 mg Clopidogrel Bisulfate (Plavix) 75 mg PO DAILY [facility] Last Admin: 05/19/18 11:34 Dose: 75 mg Duloxetine HCl (Cymbalta) 30 mg PO DAILY [facility] Last Admin: 05/19/18 11:34 Dose: 30 mg Enoxaparin Sodium (Lovenox) 30 mg SC DAILY [facility]; Protocol Last Admin: 05/19/18 11:34 Dose: 30 mg Ergocalciferol (Drisdol 50,000 Intl Units Cap) 1 cap PO Q7D [facility] Last Admin: 05/16/18 17:24 Dose: 1 cap Famotidine (Pepcid) 40 mg PO DAILY [facility] Last Admin: 05/19/18 11:32 Dose: 40 mg Ferrous Gluconate (Fergon) 324 mg PO TID [facility] Last Admin: 05/19/18 14:49 Dose: 324 mg Furosemide (Lasix) 40 mg IVP BID [facility] Last Admin: 05/19/18 11:32 Dose: 40 mg Gabapentin (Neurontin) 300 mg PO TID [facility]; Protocol Last Admin: 05/19/18 11:34 Dose: 300 mg Magnesium Oxide (Mag-Ox) 400 mg PO BID [facility] Stop: 05/19/18 23:59 Last Admin: 05/19/18 11:35 Dose: 400 mg Metolazone (Zaroxolyn) 5 mg PO BID [facility] Stop: 05/21/18 18:01 Last Admin: 05/19/18 11:35 Dose: 5 mg Midodrine (Proamatine) 5 mg PO TID [facility] Last Admin: 05/19/18 14:49 Dose: 5 mg Non-Formulary Medication (Bisoprolol [Zebeta]) 2.5 mg PO DAILY [facility] Last Admin: 05/19/18 11:35 Dose: Not Given Oxybutynin Chloride (Ditropan Tab) 5 mg PO DAILY [facility] Last Admin: 05/19/18 11:35 Dose: 5 mg Potassium Chloride (K-Dur 20 Meq Er Tab) 40 meq PO BRK [facility] Stop: 05/21/18 08:01 Last Admin: 05/19/18 11:33 Dose: 40 meq Vitamin B Complex/Vit C/Folic Acid (Nephro-Riley) 1 tab PO 0800 [facility] Last Admin: 05/19/18 11:33 Dose: 1 tab - Labs Labs: 05/19/18 06:20 05/19/18 06:20
--- NOTE | 2018-05-20 07:28 | CP.PCM.PN ---
Subjective - Date & Time of Evaluation Date of Evaluation: 05/20/18 Time of Evaluation: 07:00 - Subjective Subjective: Awake, alert, no distress Reason for consultation and follow up: Cardiac evaluation of congestive heart failure, admitted for decompensated CHF, history of non obstructive coronary artery disease. Seen and examined by me and Dr. Schneider Objective - Vital Signs/Intake and Output Vital Signs (last 24 hours): Temp Pulse Resp BP Pulse Ox 98.5 F 79 18 118/63 94 L 05/19/18 23:22 05/19/18 23:22 05/19/18 23:22 05/19/18 23:22 05/19/18 23:22 Intake and Output: 05/20/18 05/20/18 06:59 18:59 Intake Total 660 Balance 660 - Medications Medications: Current Medications Acetaminophen (Tylenol 325mg Tab) 650 mg PO Q6H PRN PRN Reason: Pain, Mild (1-3) Last Admin: 05/19/18 21:36 Dose: 650 mg Aspirin (Aspirin Chewable) 81 mg PO DAILY [facility] Last Admin: 05/19/18 11:35 Dose: 81 mg Atorvastatin Calcium (Lipitor) 10 mg PO DIN [facility] Last Admin: 05/19/18 17:10 Dose: 10 mg Clopidogrel Bisulfate (Plavix) 75 mg PO DAILY [facility] Last Admin: 05/19/18 11:34 Dose: 75 mg Duloxetine HCl (Cymbalta) 30 mg PO DAILY [facility] Last Admin: 05/19/18 11:34 Dose: 30 mg Enoxaparin Sodium (Lovenox) 30 mg SC DAILY [facility]; Protocol Last Admin: 05/19/18 11:34 Dose: 30 mg Ergocalciferol (Drisdol 50,000 Intl Units Cap) 1 cap PO Q7D [facility] Last Admin: 05/16/18 17:24 Dose: 1 cap Famotidine (Pepcid) 40 mg PO DAILY [facility] Last Admin: 05/19/18 11:32 Dose: 40 mg Ferrous Gluconate (Fergon) 324 mg PO TID [facility] Last Admin: 05/19/18 17:11 Dose: 324 mg Furosemide (Lasix) 40 mg IVP BID [facility] Last Admin: 05/19/18 17:12 Dose: 40 mg Gabapentin (Neurontin) 300 mg PO TID [facility]; Protocol Last Admin: 05/19/18 17:11 Dose: 300 mg Metolazone (Zaroxolyn) 5 mg PO BID [facility] Stop: 05/21/18 18:01 Last Admin: 05/19/18 17:14 Dose: 5 mg Midodrine (Proamatine) 5 mg PO TID [facility] Last Admin: 05/19/18 17:10 Dose: 5 mg Non-Formulary Medication (Bisoprolol [Zebeta]) 2.5 mg PO DAILY [facility] Last Admin: 05/19/18 11:35 Dose: Not Given Oxybutynin Chloride (Ditropan Tab) 5 mg PO DAILY [facility] Last Admin: 05/19/18 11:35 Dose: 5 mg Potassium Chloride (K-Dur 20 Meq Er Tab) 40 meq PO BRK [facility] Stop: 05/21/18 08:01 Last Admin: 05/19/18 11:33 Dose: 40 meq Vitamin B Complex/Vit C/Folic Acid (Nephro-Riley) 1 tab PO 0800 [facility] Last Admin: 05/19/18 11:33 Dose: 1 tab - Labs Labs: 05/19/18 06:20 05/19/18 06:20 - Constitutional Appears: Non-toxic, No Acute Distress - Head Exam Head Exam: NORMAL INSPECTION, NORMOCEPHALIC - Eye Exam Eye Exam: Normal appearance Pupil Exam: NORMAL ACCOMODATION - ENT Exam ENT Exam: Mucous Membranes Moist, Normal Exam - Respiratory Exam Respiratory Exam: Decreased Breath Sounds, Clear to Ausculation Bilateral, NORMAL BREATHING PATTERN - Cardiovascular Exam Cardiovascular Exam: +S1, +S2 - GI/Abdominal Exam GI & Abdominal Exam: Soft, Normal Bowel Sounds - Extremities Exam Extremities Exam: Full ROM Additional comments: 2-3+ edema - Neurological Exam Neurological Exam: Alert, Awake, Oriented x3 - Psychiatric Exam Psychiatric exam: Normal Affect, Normal Mood - Skin Skin Exam: Dry, Normal Color, Warm Assessment and Plan - Assessment and Plan (Free Text) Assessment: A 72 year old female who came in to the ER due to bilateral leg edema.History includes congestive heart failure and hypertension, morbidly obese, chronic renal insufficency,non obstructive coronary artery disease. Admitted with decompensated diastolic dysfunction congestive heart failure. Stress test was done yesterday and normal results. LVEF 71%. Renal on consult. Podiatry on consult for heel ulcers. Left heel wound culture positive for Staph co rynebacterium. Cardiac status stable. Denies shortness of breath. Plan: Cardiac status stable. Denies shortness of breath. Heart rate stable Blood pressure stable Continue to diurese Renal on consult Podiatry on consult for heel ulcers On ASA 81 mg daily, Lipitor 10 mg daily, Plavix 75 mg daily, Lovenox 30 mg daily, Lasix 40 mg BID, Zaroxylyn 5 mg BID Midorine 5 mg TID Continue current treatment Continue current medications Will follow up Plan and treatment discussed with Dr. Schneider
--- NOTE | 2018-05-20 08:18 | CP.PCM.PN ---
Subjective - Date & Time of Evaluation Date of Evaluation: 05/20/18 Time of Evaluation: 08:16 - Subjective Subjective: Nephrology Consultation Note: Assessment: Stable dCHF exacerbation with fluid overload Hypertensive Chronic Kidney Disease (I12.9) Chronic Kidney Disease (N18.3) Stage 3 with ? mg proteinuria (R80.9) Anemia (D64.9), morbid obesity hx of NSAIDs use hyperkalemia Plan No acute need for renal replacement therapy at this time. Renal function stable Hypertension control with meds as ordered. Maintain hemodynamics stable. Avoid hypotension. Patient not on ACEI/ARB due to hyperkalemia I/O not recorded overnight - not clear of amount of diuresis advised to stop nsaids continue diuretic and follow up cardiology on iron, MVI and weekly vit D Dose meds/antibiotics for reduced GFR. Avoid fleets enema/magnesium based laxatives. Avoid nephrotoxins/NSAIDs/ iodinated contrast (unless needed emergently) Glycemic control. need to loose weight. Further work up/management as per primary team S: seen and eamined no complaints Physical Examination: General Appearance: Comfortable, in no acute respiratory distress, co-operative . obese Vitals reviewed and noted as below Head; Atraumatic, normocephalic ENT: no ulcers no thrush. Tongue is midline. Oropharynx: no rash or ulcers. EYES: Pupils are equal, round and reactive to light accommodation. Eye muscles and extraocular movement intact. Sclera is anicteric. Neck; supple no lymphadenopathy, no thyromegaly or bruit Lungs: Normal respiratory rate/effort. Breath sounds bilateral clearer Heart: Normal rate. s1s2 normal. No rub or gallop. Extremities: 2+ edema. No varicose veins Neurological: Patient is alert, awake and oriented to person, place and time. No focal deficit. Strength bilateral appropriate and equal Skin: Warm and dry. Normal turgor. No rash. Palpitation: Normal elasticity for age Abdomen: Abdomen is soft. Bowel sounds +. There is no abdominal tenderness, no guarding/rigidity no organomegaly Psych: normal insight and normal affect/mood MSK: no joint tenderness or swelling. Digits and nails normal, no deformity : kidney or bladder not palpable Labs/imaging reviewed. Past medical history, past surgical history, family history, social history, allergy reviewed and noted as below Family hx: no hx of CKD. Rest non-contributory Objective - Vital Signs/Intake and Output Vital Signs (last 24 hours): Temp Pulse Resp BP Pulse Ox 98.5 F 79 18 118/63 94 L 05/19/18 23:22 05/19/18 23:22 05/19/18 23:22 05/19/18 23:22 05/19/18 23:22 Intake and Output: 05/20/18 05/20/18 06:59 18:59 Intake Total 660 Balance 660 - Medications Medications: Current Medications Acetaminophen (Tylenol 325mg Tab) 650 mg PO Q6H PRN PRN Reason: Pain, Mild (1-3) Last Admin: 05/19/18 21:36 Dose: 650 mg Aspirin (Aspirin Chewable) 81 mg PO DAILY [facility] Last Admin: 05/19/18 11:35 Dose: 81 mg Atorvastatin Calcium (Lipitor) 10 mg PO DIN [facility] Last Admin: 05/19/18 17:10 Dose: 10 mg Clopidogrel Bisulfate (Plavix) 75 mg PO DAILY [facility] Last Admin: 05/19/18 11:34 Dose: 75 mg Duloxetine HCl (Cymbalta) 30 mg PO DAILY [facility] Last Admin: 05/19/18 11:34 Dose: 30 mg Enoxaparin Sodium (Lovenox) 30 mg SC DAILY [facility]; Protocol Last Admin: 05/19/18 11:34 Dose: 30 mg Ergocalciferol (Drisdol 50,000 Intl Units Cap) 1 cap PO Q7D [facility] Last Admin: 05/16/18 17:24 Dose: 1 cap Famotidine (Pepcid) 40 mg PO DAILY [facility] Last Admin: 05/19/18 11:32 Dose: 40 mg Ferrous Gluconate (Fergon) 324 mg PO TID [facility] Last Admin: 05/19/18 17:11 Dose: 324 mg Furosemide (Lasix) 40 mg IVP BID [facility] Last Admin: 05/19/18 17:12 Dose: 40 mg Gabapentin (Neurontin) 300 mg PO TID [facility]; Protocol Last Admin: 05/19/18 17:11 Dose: 300 mg Metolazone (Zaroxolyn) 5 mg PO BID [facility] Stop: 05/21/18 18:01 Last Admin: 05/19/18 17:14 Dose: 5 mg Midodrine (Proamatine) 5 mg PO TID [facility] Last Admin: 05/19/18 17:10 Dose: 5 mg Non-Formulary Medication (Bisoprolol [Zebeta]) 2.5 mg PO DAILY [facility] Last Admin: 05/19/18 11:35 Dose: Not Given Oxybutynin Chloride (Ditropan Tab) 5 mg PO DAILY [facility] Last Admin: 05/19/18 11:35 Dose: 5 mg Potassium Chloride (K-Dur 20 Meq Er Tab) 40 meq PO BRK [facility] Stop: 05/21/18 08:01 Last Admin: 05/19/18 11:33 Dose: 40 meq Vitamin B Complex/Vit C/Folic Acid (Nephro-Riley) 1 tab PO 0800 [facility] Last Admin: 05/19/18 11:33 Dose: 1 tab - Labs Labs: 05/19/18 06:20 05/19/18 06:20
--- NOTE | 2018-05-20 08:49 | CP.PCM.PN ---
<Isabel Carrillo - Last Filed: 05/20/18 11:42> Subjective - Date & Time of Evaluation Date of Evaluation: 05/20/18 Time of Evaluation: 08:48 - Subjective Subjective: Podiatry Consult Note for Dr. Ocasio: 72F patient seen and evaluated for bilateral lower extremity edema and L heel ulceration. Patient resting in bed comfortably and in NAD. She reports mild pain to the L heel today, however pain is well controlled at this time. No acute events overnight. Denies N/V/F/CP. Objective - Vital Signs/Intake and Output Vital Signs (last 24 hours): Temp Pulse Resp BP Pulse Ox 98.5 F 79 18 118/63 94 L 05/19/18 23:22 05/19/18 23:22 05/19/18 23:22 05/19/18 23:22 05/19/18 23:22 Intake and Output: 05/20/18 05/20/18 06:59 18:59 Intake Total 660 Balance 660 - Medications Medications: Current Medications Acetaminophen (Tylenol 325mg Tab) 650 mg PO Q6H PRN PRN Reason: Pain, Mild (1-3) Last Admin: 05/19/18 21:36 Dose: 650 mg Aspirin (Aspirin Chewable) 81 mg PO DAILY [facility] Last Admin: 05/19/18 11:35 Dose: 81 mg Atorvastatin Calcium (Lipitor) 10 mg PO DIN [facility] Last Admin: 05/19/18 17:10 Dose: 10 mg Clopidogrel Bisulfate (Plavix) 75 mg PO DAILY [facility] Last Admin: 05/19/18 11:34 Dose: 75 mg Duloxetine HCl (Cymbalta) 30 mg PO DAILY [facility] Last Admin: 05/19/18 11:34 Dose: 30 mg Enoxaparin Sodium (Lovenox) 30 mg SC DAILY [facility]; Protocol Last Admin: 05/19/18 11:34 Dose: 30 mg Ergocalciferol (Drisdol 50,000 Intl Units Cap) 1 cap PO Q7D [facility] Last Admin: 05/16/18 17:24 Dose: 1 cap Famotidine (Pepcid) 40 mg PO DAILY [facility] Last Admin: 05/19/18 11:32 Dose: 40 mg Ferrous Gluconate (Fergon) 324 mg PO TID [facility] Last Admin: 05/19/18 17:11 Dose: 324 mg Furosemide (Lasix) 40 mg IVP BID [facility] Last Admin: 05/19/18 17:12 Dose: 40 mg Gabapentin (Neurontin) 300 mg PO TID [facility]; Protocol Last Admin: 05/19/18 17:11 Dose: 300 mg Metolazone (Zaroxolyn) 5 mg PO BID [facility] Stop: 05/21/18 18:01 Last Admin: 05/19/18 17:14 Dose: 5 mg Midodrine (Proamatine) 5 mg PO TID [facility] Last Admin: 05/19/18 17:10 Dose: 5 mg Non-Formulary Medication (Bisoprolol [Zebeta]) 2.5 mg PO DAILY [facility] Last Admin: 05/19/18 11:35 Dose: Not Given Oxybutynin Chloride (Ditropan Tab) 5 mg PO DAILY [facility] Last Admin: 05/19/18 11:35 Dose: 5 mg Potassium Chloride (K-Dur 20 Meq Er Tab) 40 meq PO BRK [facility] Stop: 05/21/18 08:01 Last Admin: 05/19/18 11:33 Dose: 40 meq Vitamin B Complex/Vit C/Folic Acid (Nephro-Rliey) 1 tab PO 0800 [facility] Last Admin: 05/19/18 11:33 Dose: 1 tab - Labs Labs: 05/19/18 06:20 05/19/18 06:20 - Constitutional Appears: Well, Non-toxic, No Acute Distress - Head Exam Head Exam: ATRAUMATIC, NORMOCEPHALIC - Extremities Exam Additional comments: B/L lower extremity focused exam: Vascular: DP/PT nonpalpable secondary to edema, CFT < 3 seconds to all digits, TG warm to cool, pedal hair absent, +2 pitting edema noted pretibial perimalleolar and dorsum of the foot b/l Ortho: Pain upon palpation to b/l legs, no pain with calf compression Neuro: Gross and protective sensation intact Derm: Ulceration noted to the lateral aspect of the left posterior heel, irregular border with fibrogranular base, no drainage, no malodor, no tunneling or tracking noted, no other open lesions, xerosis appreciated phani-wound. Bullae formation appreciated to the inferior 1/3 of R leg. - Neurological Exam Neurological Exam: Alert, Awake, Oriented x3 - Psychiatric Exam Psychiatric exam: Normal Affect, Normal Mood Assessment and Plan - Assessment and Plan (Free Text) Assessment: 72F patient with bilateral lower extremity edema and L heel ulceration, resolving Plan: Patient seen and evaluated with Dr. Browning Afebrile, WBC 7.3 LE venous doppler reviewed; no DVT Left foot culture: staph auereus and corynebacterium L foot x-ray; no acute fracture or dislocation LE arterial duplex taken; relatively abnormal JAKY/PVR at rest Local wound care: L heel dressed with optifoam, R anterior leg bullae dressed with optifoam Physical therapy ordered for Darco heel relief shoe Multipodus boots ordered and to be worn at all times while in bed Will continue to follow <Luis Alberto Browning - Last Filed: 05/20/18 13:33> Objective - Vital Signs/Intake and Output Vital Signs (last 24 hours): Temp Pulse Resp BP Pulse Ox 97.9 F 74 20 126/64 100 05/20/18 06:00 05/20/18 06:00 05/20/18 06:00 05/20/18 11:24 05/20/18 06:00 Intake and Output: 05/20/18 05/20/18 06:59 18:59 Intake Total 660 Balance 660 - Medications Medications: Current Medications Acetaminophen (Tylenol 325mg Tab) 650 mg PO Q6H PRN PRN Reason: Pain, Mild (1-3) Last Admin: 05/19/18 21:36 Dose: 650 mg Aspirin (Aspirin Chewable) 81 mg PO DAILY [facility] Last Admin: 05/19/18 11:35 Dose: 81 mg Atorvastatin Calcium (Lipitor) 10 mg PO DIN [facility] Last Admin: 05/19/18 17:10 Dose: 10 mg Clopidogrel Bisulfate (Plavix) 75 mg PO DAILY [facility] Last Admin: 05/20/18 11:26 Dose: 75 mg Duloxetine HCl (Cymbalta) 30 mg PO DAILY [facility] Last Admin: 05/20/18 11:26 Dose: 30 mg Enoxaparin Sodium (Lovenox) 30 mg SC DAILY [facility]; Protocol Last Admin: 05/20/18 11:25 Dose: 30 mg Ergocalciferol (Drisdol 50,000 Intl Units Cap) 1 cap PO Q7D [facility] Last Admin: 05/16/18 17:24 Dose: 1 cap Famotidine (Pepcid) 40 mg PO DAILY [facility] Last Admin: 05/20/18 11:26 Dose: 40 mg Ferrous Gluconate (Fergon) 324 mg PO TID [facility] Last Admin: 05/20/18 11:26 Dose: 324 mg Furosemide (Lasix) 40 mg IVP BID [facility] Last Admin: 05/20/18 11:24 Dose: 40 mg Gabapentin (Neurontin) 300 mg PO TID [facility]; Protocol Last Admin: 05/20/18 11:26 Dose: 300 mg Metolazone (Zaroxolyn) 5 mg PO BID [facility] Stop: 05/21/18 18:01 Last Admin: 05/20/18 11:26 Dose: 5 mg Midodrine (Proamatine) 5 mg PO TID [facility] Last Admin: 05/20/18 11:27 Dose: 5 mg Non-Formulary Medication (Bisoprolol [Zebeta]) 2.5 mg PO DAILY [facility] Last Admin: 05/19/18 11:35 Dose: Not Given Oxybutynin Chloride (Ditropan Tab) 5 mg PO DAILY [facility] Last Admin: 05/20/18 11:26 Dose: 5 mg Potassium Chloride (K-Dur 20 Meq Er Tab) 40 meq PO BRK [facility] Stop: 05/21/18 08:01 Last Admin: 05/20/18 11:27 Dose: 40 meq Vitamin B Complex/Vit C/Folic Acid (Nephro-Riley) 1 tab PO 0800 [facility] Last Admin: 05/20/18 11:27 Dose: 1 tab - Labs Labs: 05/19/18 06:20 05/19/18 06:20 Attending/Attestation - Attestation I have personally seen and examined this patient.: Yes I have fully participated in the care of the patient.: Yes I have reviewed all pertinent clinical information, including history, physical exam and plan: Yes
[2018-05-20] MEDS: Enoxaparin 30 mg Syringe SC SCH (11:25)
[2018-05-20] MEDS: metOLazone 5 MG TAB PO SCH ×2 (11:26→18:08)
[2018-05-20] MEDS: Potassium Chloride 20 mEq ER Tab PO SCH (11:27)
[2018-05-20] MEDS: BISOPROLOL 2.5 MG PO SCH (11:27)
[2018-05-20] MEDS: Multivitamin Vitamin B Complex (Nephro-Vite) Tab PO SCH (11:27)
--- NOTE | 2018-05-20 12:25 | PN ---
DATE: 05/19/2018 SUBJECTIVE: The patient is comfortable, no distress. Had a stress test done. She still has leg swelling and edema, and getting physical therapy. PHYSICAL EXAMINATION: VITAL SIGNS: Temperature 97.8, heart rate is 86, blood pressure 124/68, respirations 20, sat 98%. HEAD AND NECK: Normal. No JVD, no thyromegaly. CHEST: Clear, bilateral. CARDIAC: First sound and second sound normal. ABDOMEN: Soft, nontender. EXTREMITIES: There is bilateral leg edema, right more than left . NEUROLOGIC: Normal. LABORATORY STUDIES: White count 8, hemoglobin 11.4, hematocrit 36.3, and platelets 264. Last chemistry shows sodium 134, potassium 3.6, chloride 94, bicarb 33, BUN 40, creatinine 1.3, blood sugar 120. Magnesium 1.6. IMPRESSION AND PLAN: 1. Congestive heart failure due to diastolic heart failure. Continue therapy. The patient had a negative myocardial perfusion studies. No ischemia. 2. Bilateral leg edema. Continue Lasix. Keep the leg elevated. 3. Left heel ulcer, noninfected. Seen by disease control inspector. Continue local wound care. 4. Chronic renal failure. Creatinine runs 1.4, 1.3. She is off Mobic, but she complains of joint pain. 5. Hypertension. Continue current medication. 6. Morbid obesity. 7. Chronic osteoarthritis, chronic back pain. Continue current therapy. We will follow up clinically. Johnny Jones MD
--- NOTE | 2018-05-20 13:31 | PN ---
DATE: 05/20/2018 REASON FOR CONSULTATION: Followup, cardiac evaluation. SUBJECTIVE: The patient denied any chest pain, shortness of breath, or any palpitation. PHYSICAL EXAMINATION: GENERAL: Not in apparent distress, lying flat on the bed. LABORATORY DATA: The patient had a stress test done. Noninvasive workup essentially is negative. Ejection fraction 71% by stress test. PLAN: Continue heel wound culture. Continue Podiatry followup and Renal followup. CVS status is stable. Continue DVT prophylaxis. Continue antibiotics. Continue aspirin. We will discuss with Dr. Jones the reason for Plavix. CVS status is stable. Okay to be discharged from Cardiology point of view. Thank you Dr. Jones for providing us the opportunity in taking care of the patient, . Shari Schneider MD
--- NOTE | 2018-05-20 15:12 | RAD ---
Date of service: 05/20/2018 PROCEDURE: Radiographs of the Left Shoulder HISTORY: pain COMPARISON: No prior. FINDINGS: BONES: Normal. No fracture. JOINTS: Normal. Glenohumeral and acromioclavicular joints preserved. No osteoarthritis. SOFT TISSUES: Normal. OTHER FINDINGS: None. IMPRESSION: Normal radiographs of the left shoulder.
--- NOTE | 2018-05-21 03:46 | PN ---
DATE: 05/20/2018 SUBJECTIVE: The patient feels better. Her leg is still swollen but improving every day. She has complained of left shoulder pain. Otherwise stable. No chest pain. No short of breath. PHYSICAL EXAMINATION: VITAL SIGNS: Temperature 97.5, heart rate 76, blood pressure 140/80, respirations 20, sats 97%. HEAD AND NECK: Normal. No JVD. No thyromegaly. CHEST: Clear bilateral. CARDIAC: First sound and second sounds are normal. ABDOMEN: Soft, obese and nontender. EXTREMITIES: Edema, improving. Wound care for her right leg. NEUROLOGIC: Normal. LABORATORY DATA: White count 8, hemoglobin 11.4, hematocrit 36.3, platelets 264. Chemistry shows sodium 134, potassium 3.6, chloride 94, bicarb 33, BUN 40, creatinine 1.6. IMPRESSION AND PLAN: 1. Generalized weakness, deconditioning. The patient may need to go for rehabilitation and more physical therapy. 2. Bilateral lower extremity edema, diastolic heart failure. Continue Lasix and keep her legs elevated. 3. Chronic renal insufficiency. Continue diuretics. 4. Osteoarthritis of the back, knee and shoulder pain. We will get x-ray of the shoulder. We will follow up. 5. Hypercholesterolemia. 6. Chronic back pain. 7. Urine incontinence. 8. Anemia. Plan is to continue Neurontin. Continue Lipitor. Continue Ditropan, Cymbalta and aspirin. Follow up clinically. Johnny Jones MD
[2018-05-21 08:18] LABS: HEMOGLOBIN 11.7 g/dL (12.0-16.0); MEAN CELL VOLUME 97.6 fl (80.0-105.0); MEAN CORPUSCULAR HEMOGLOBIN 31.2 pg (25.0-35.0); MEAN PLATELET VOLUME 10.9 fl (7.0-11.0); RBC 3.75 10^6/uL (3.5-6.1); RED CELL DISTRIBUTION WIDTH 13.8 % (11.5-14.5); WHITE BLOOD COUNT 7.5 10^3/uL (4.5-11.0)
[2018-05-21] MEDS: Potassium Chloride 20 mEq ER Tab PO SCH (08:29)
[2018-05-21 08:36] LABS: CALCIUM 8.8 mg/dL (8.4-10.5)
--- NOTE | 2018-05-21 09:15 | CP.PCM.PN ---
Subjective - Date & Time of Evaluation Date of Evaluation: 05/21/18 Time of Evaluation: 06:50 - Subjective Subjective: Lying in bed, Awake, alert, no distress Reason for consultation and follow up: Cardiac evaluation of congestive heart failure, admitted for decompensated CHF, history of non obstructive coronary artery disease. Seen and examined by me and Dr. Schneider Objective - Vital Signs/Intake and Output Vital Signs (last 24 hours): Temp Pulse Resp BP Pulse Ox 98 F 75 20 108/70 99 05/21/18 06:00 05/21/18 06:00 05/21/18 06:00 05/21/18 06:00 05/21/18 06:00 - Medications Medications: Current Medications Acetaminophen (Tylenol 325mg Tab) 650 mg PO Q6H PRN PRN Reason: Pain, Mild (1-3) Last Admin: 05/20/18 15:37 Dose: 650 mg Aspirin (Aspirin Chewable) 81 mg PO DAILY [facility] Last Admin: 05/20/18 11:25 Dose: 81 mg Atorvastatin Calcium (Lipitor) 10 mg PO DIN [facility] Last Admin: 05/20/18 17:57 Dose: 10 mg Clopidogrel Bisulfate (Plavix) 75 mg PO DAILY [facility] Last Admin: 05/20/18 11:26 Dose: 75 mg Duloxetine HCl (Cymbalta) 30 mg PO DAILY [facility] Last Admin: 05/20/18 11:26 Dose: 30 mg Enoxaparin Sodium (Lovenox) 30 mg SC DAILY [facility]; Protocol Last Admin: 05/20/18 11:25 Dose: 30 mg Ergocalciferol (Drisdol 50,000 Intl Units Cap) 1 cap PO Q7D [facility] Last Admin: 05/16/18 17:24 Dose: 1 cap Famotidine (Pepcid) 40 mg PO DAILY [facility] Last Admin: 05/20/18 11:26 Dose: 40 mg Ferrous Gluconate (Fergon) 324 mg PO TID [facility] Last Admin: 05/20/18 18:09 Dose: 324 mg Furosemide (Lasix) 40 mg IVP BID [facility] Last Admin: 05/20/18 17:57 Dose: 40 mg Gabapentin (Neurontin) 300 mg PO TID [facility]; Protocol Last Admin: 05/20/18 18:11 Dose: 300 mg Metolazone (Zaroxolyn) 5 mg PO BID [facility] Stop: 05/21/18 18:01 Last Admin: 05/20/18 18:08 Dose: 5 mg Midodrine (Proamatine) 5 mg PO TID [facility] Last Admin: 05/20/18 18:08 Dose: 5 mg Non-Formulary Medication (Bisoprolol [Zebeta]) 2.5 mg PO DAILY [facility] Last Admin: 05/20/18 11:27 Dose: Not Given Oxybutynin Chloride (Ditropan Tab) 5 mg PO DAILY [facility] Last Admin: 05/20/18 11:26 Dose: 5 mg Vitamin B Complex/Vit C/Folic Acid (Nephro-Riley) 1 tab PO 0800 [facility] Last Admin: 05/20/18 11:27 Dose: 1 tab - Labs Labs: 05/21/18 07:30 05/21/18 07:30 - Constitutional Appears: Non-toxic, No Acute Distress - Head Exam Head Exam: NORMAL INSPECTION, NORMOCEPHALIC - Eye Exam Eye Exam: Normal appearance Pupil Exam: NORMAL ACCOMODATION - ENT Exam ENT Exam: Mucous Membranes Moist, Normal Exam - Respiratory Exam Respiratory Exam: Clear to Ausculation Bilateral, NORMAL BREATHING PATTERN - Cardiovascular Exam Cardiovascular Exam: +S1, +S2 - GI/Abdominal Exam GI & Abdominal Exam: Soft, Normal Bowel Sounds - Extremities Exam Extremities Exam: Full ROM Additional comments: 2+ edema - Neurological Exam Neurological Exam: Alert, Awake, Oriented x3 - Psychiatric Exam Psychiatric exam: Normal Affect, Normal Mood - Skin Skin Exam: Dry, Normal Color, Warm Assessment and Plan - Assessment and Plan (Free Text) Assessment: A 72 year old female who came in to the ER due to bilateral leg edema.History includes congestive heart failure and hypertension, morbidly obese, chronic renal insufficency,non obstructive coronary artery disease. Admitted with decompensated diastolic dysfunction congestive heart failure. Stress test was done yesterday and normal results. LVEF 71%. Renal on consult. Podiatry on consult for heel ulcers. Left heel wound culture positive for Staph corynebacterium. Cardiac status stable. Plan: Denies shortness of breath. Cardiac status stable Heart rate stable Blood pressure stable Renal on consult Replenish potassium Podiatry on consult for heel ulcers On ASA 81 mg daily, Lipitor 10 mg daily, Plavix 75 mg daily, Lovenox 30 mg daily, Lasix 40 mg BID, Zaroxylyn 5 mg BID Midorine 5 mg TID Continue current treatment Continue current medications Will follow up Plan and treatment discussed with Dr. Schneider
[2018-05-21] MEDS ORDERED: Potassium Chloride 20 mEq ER Tab PO STA (09:19)
[2018-05-21] MEDS: Multivitamin Vitamin B Complex (Nephro-Vite) Tab PO SCH (09:28)
--- NOTE | 2018-05-21 10:19 | CP.PCM.PN ---
<Devaughn Hallman - Last Filed: 05/21/18 10:16> Subjective - Date & Time of Evaluation Date of Evaluation: 05/21/18 Time of Evaluation: 10:16 - Subjective Subjective: Podiatry progress note for Dr. Browning 72F patient seen and evaluated for bilateral lower extremity edema and L heel ulceration. Patient resting in bed comfortably and in NAD. She reports mild pain to the L heel today, however pain is well controlled at this time. No acute events overnight. Denies N/V/F/CP. Objective - Vital Signs/Intake and Output Vital Signs (last 24 hours): Temp Pulse Resp BP Pulse Ox 98 F 75 20 108/70 99 05/21/18 06:00 05/21/18 06:00 05/21/18 06:00 05/21/18 06:00 05/21/18 06:00 - Medications Medications: Current Medications Acetaminophen (Tylenol 325mg Tab) 650 mg PO Q6H PRN PRN Reason: Pain, Mild (1-3) Last Admin: 05/20/18 15:37 Dose: 650 mg Aspirin (Aspirin Chewable) 81 mg PO DAILY [facility] Last Admin: 05/20/18 11:25 Dose: 81 mg Atorvastatin Calcium (Lipitor) 10 mg PO DIN [facility] Last Admin: 05/20/18 17:57 Dose: 10 mg Clopidogrel Bisulfate (Plavix) 75 mg PO DAILY [facility] Last Admin: 05/20/18 11:26 Dose: 75 mg Duloxetine HCl (Cymbalta) 30 mg PO DAILY [facility] Last Admin: 05/20/18 11:26 Dose: 30 mg Enoxaparin Sodium (Lovenox) 30 mg SC DAILY [facility]; Protocol Last Admin: 05/20/18 11:25 Dose: 30 mg Ergocalciferol (Drisdol 50,000 Intl Units Cap) 1 cap PO Q7D [facility] Last Admin: 05/16/18 17:24 Dose: 1 cap Famotidine (Pepcid) 40 mg PO DAILY [facility] Last Admin: 05/20/18 11:26 Dose: 40 mg Ferrous Gluconate (Fergon) 324 mg PO TID [facility] Last Admin: 05/20/18 18:09 Dose: 324 mg Furosemide (Lasix) 40 mg IVP BID [facility] Last Admin: 05/20/18 17:57 Dose: 40 mg Gabapentin (Neurontin) 300 mg PO TID [facility]; Protocol Last Admin: 05/20/18 18:11 Dose: 300 mg Metolazone (Zaroxolyn) 5 mg PO BID [facility] Stop: 05/21/18 18:01 Last Admin: 05/20/18 18:08 Dose: 5 mg Midodrine (Proamatine) 5 mg PO TID [facility] Last Admin: 05/20/18 18:08 Dose: 5 mg Non-Formulary Medication (Bisoprolol [Zebeta]) 2.5 mg PO DAILY [facility] Last Admin: 05/20/18 11:27 Dose: Not Given Oxybutynin Chloride (Ditropan Tab) 5 mg PO DAILY [facility] Last Admin: 05/20/18 11:26 Dose: 5 mg Potassium Chloride (K-Dur 20 Meq Er Tab) 40 meq PO ONCE ONE Stop: 05/21/18 13:01 Vitamin B Complex/Vit C/Folic Acid (Nephro-Riley) 1 tab PO 0800 [facility] Last Admin: 05/21/18 09:28 Dose: 1 tab - Labs Labs: 05/21/18 07:30 05/21/18 07:30 - Constitutional Appears: Well, Non-toxic, No Acute Distress - Head Exam Head Exam: ATRAUMATIC, NORMOCEPHALIC - Extremities Exam Additional comments: Vascular: DP/PT nonpalpable secondary to edema, CFT < 3 seconds to all digits, TG warm to cool, pedal hair absent, +2 pitting edema noted pretibial perimalleolar and dorsum of the foot b/l Ortho: Pain upon palpation to b/l legs, no pain with calf compression Neuro: Gross and protective sensation intact Derm: Ulceration noted to the lateral aspect of the left posterior heel, irregular border with fibrogranular base, no drainage, no malodor, no tunneling or tracking noted, no other open lesions, xerosis appreciated phani-wound. Bullae formation appreciated to the inferior 1/3 of R leg - Neurological Exam Neurological Exam: Alert, Awake, Oriented x3 - Psychiatric Exam Psychiatric exam: Normal Affect, Normal Mood Assessment and Plan - Assessment and Plan (Free Text) Assessment: 72F with bilateral lower extremity edema and L heel ulceration, resolving Plan: Patient seen and evaluated with Dr. Browning Afebrile, WBC 7.5 LE venous doppler reviewed; no DVT Left foot culture: staph auereus and corynebacterium L foot x-ray; no acute fracture or dislocation LE arterial duplex taken; relatively abnormal JAKY/PVR at rest Local wound care: cleansed with sterile saline, L heel dressed with optifoam, R anterior leg bullae dressed with optifoam Physical therapy ordered for Darco heel relief shoe Multipodus boots ordered and to be worn at all times while in bed Will continue to follow <Luis Alberto Browning - Last Filed: 05/25/18 17:48> Objective - Vital Signs/Intake and Output Vital Signs (last 24 hours): Temp Pulse Resp BP Pulse Ox 98.3 F 113 H 20 143/90 98 05/23/18 14:00 05/23/18 14:00 05/23/18 14:00 05/23/18 14:00 05/23/18 14:00 - Labs Labs: 05/21/18 07:30 05/23/18 10:49 Attending/Attestation - Attestation I have personally seen and examined this patient.: Yes I have fully participated in the care of the patient.: Yes I have reviewed all pertinent clinical information, including history, physical exam and plan: Yes
[2018-05-21] MEDS: Enoxaparin 30 mg Syringe SC SCH (10:26)
[2018-05-21] MEDS: metOLazone 5 MG TAB PO SCH ×2 (10:28→18:04)
[2018-05-21] MEDS: BISOPROLOL 2.5 MG PO SCH (10:29)
[2018-05-21] MEDS ORDERED: Potassium Chloride 20 mEq ER Tab PO ONE (13:00)
--- NOTE | 2018-05-21 14:05 | CP.PCM.PN ---
Subjective - Date & Time of Evaluation Date of Evaluation: 05/21/18 Time of Evaluation: 14:04 - Subjective Subjective: Nephrology Consultation Note: Assessment: Stable dCHF exacerbation with fluid overload Hypertensive Chronic Kidney Disease (I12.9) Chronic Kidney Disease (N18.3) Stage 3 with ? mg proteinuria (R80.9) Anemia (D64.9), morbid obesity hx of NSAIDs use hyperkalemia hyponatremia Plan No acute need for renal replacement therapy at this time. Renal function stable Hypertension control with meds as ordered. Maintain hemodynamics stable. Avoid hypotension. Patient not on ACEI/ARB due to hyperkalemia I/O not recorded overnight - not clear of amount of diuresis continue diuretic and follow up cardiology replete K hypona likely due to hypervolemia - continue diuresis - strict I / o on iron, MVI and weekly vit D Dose meds/antibiotics for reduced GFR. Avoid fleets enema/magnesium based laxatives. Avoid nephrotoxins/NSAIDs/ iodinated contrast (unless needed emergently) Glycemic control. need to loose weight. Further work up/management as per primary team S: seen and examined no complaints Physical Examination: General Appearance: Comfortable, in no acute respiratory distress, co-operative . obese Vitals reviewed and noted as below Head; Atraumatic, normocephalic ENT: no ulcers no thrush. Tongue is midline. Oropharynx: no rash or ulcers. EYES: Pupils are equal, round and reactive to light accommodation. Eye muscles a nd extraocular movement intact. Sclera is anicteric. Neck; supple no lymphadenopathy, no thyromegaly or bruit Lungs: Normal respiratory rate/effort. Breath sounds bilateral clearer Heart: Normal rate. s1s2 normal. No rub or gallop. Extremities: 2+ edema. No varicose veins Neurological: Patient is alert, awake and oriented to person, place and time. No focal deficit. Strength bilateral appropriate and equal Skin: Warm and dry. Normal turgor. No rash. Palpitation: Normal elasticity for age Abdomen: Abdomen is soft. Bowel sounds +. There is no abdominal tenderness, no guarding/rigidity no organomegaly Psych: normal insight and normal affect/mood MSK: no joint tenderness or swelling. Digits and nails normal, no deformity : kidney or bladder not palpable Labs/imaging reviewed. Past medical history, past surgical history, family history, social history, allergy reviewed and noted as below Family hx: no hx of CKD. Rest non-contributory Objective - Vital Signs/Intake and Output Vital Signs (last 24 hours): Temp Pulse Resp BP Pulse Ox 98 F 75 20 100/70 99 05/21/18 06:00 05/21/18 06:00 05/21/18 06:00 05/21/18 10:25 05/21/18 06:00 - Medications Medications: Current Medications Acetaminophen (Tylenol 325mg Tab) 650 mg PO Q6H PRN PRN Reason: Pain, Mild (1-3) Last Admin: 05/20/18 15:37 Dose: 650 mg Aspirin (Aspirin Chewable) 81 mg PO DAILY [facility] Last Admin: 05/21/18 10:27 Dose: 81 mg Atorvastatin Calcium (Lipitor) 10 mg PO DIN [facility] Last Admin: 05/20/18 17:57 Dose: 10 mg Clopidogrel Bisulfate (Plavix) 75 mg PO DAILY [facility] Last Admin: 05/21/18 10:27 Dose: 75 mg Duloxetine HCl (Cymbalta) 30 mg PO DAILY [facility] Last Admin: 05/21/18 10:26 Dose: 30 mg Enoxaparin Sodium (Lovenox) 30 mg SC DAILY [facility]; Protocol Last Admin: 05/21/18 10:26 Dose: 30 mg Ergocalciferol (Drisdol 50,000 Intl Units Cap) 1 cap PO Q7D [facility] Last Admin: 05/16/18 17:24 Dose: 1 cap Famotidine (Pepcid) 40 mg PO DAILY [facility] Last Admin: 05/21/18 10:28 Dose: 40 mg Ferrous Gluconate (Fergon) 324 mg PO TID [facility] Last Admin: 05/21/18 10:27 Dose: 324 mg Furosemide (Lasix) 40 mg IVP BID [facility] Last Admin: 05/21/18 10:25 Dose: 40 mg Gabapentin (Neurontin) 300 mg PO TID [facility]; Protocol Last Admin: 05/21/18 10:27 Dose: 300 mg Metolazone (Zaroxolyn) 5 mg PO BID [facility] Stop: 05/21/18 18:01 Last Admin: 05/21/18 10:28 Dose: 5 mg Midodrine (Proamatine) 5 mg PO TID [facility] Last Admin: 05/21/18 10:28 Dose: 5 mg Non-Formulary Medication (Bisoprolol [Zebeta]) 2.5 mg PO DAILY [facility] Last Admin: 05/21/18 10:29 Dose: Not Given Oxybutynin Chloride (Ditropan Tab) 5 mg PO DAILY [facility] Last Admin: 05/21/18 10:26 Dose: 5 mg Vitamin B Complex/Vit C/Folic Acid (Nephro-Riley) 1 tab PO 0800 [facility] Last Admin: 05/21/18 09:28 Dose: 1 tab - Labs Labs: 05/21/18 07:30 05/21/18 07:30
--- NOTE | 2018-05-22 01:04 | PN ---
DATE: 05/21/2018 SUBJECTIVE: The patient is comfortable, in no distress. No chest pain. No other complaints. The patient has leg edema which improved. She is very weak. She is unsteady. Has difficulty ambulation. She will need rehabilitation. PHYSICAL EXAMINATION: GENERAL: She is sitting in the bedside and comfortable, in no distress. VITAL SIGNS: Temperature 98, heart rate 75, blood pressure 108/70, respirations 20, sat 99%. HEAD AND NECK: Normal. No JVD. No thyromegaly. CHEST: Clear bilaterally. CARDIAC: First and second sounds normal. ABDOMEN: Soft, obese, nontender. EXTREMITIES: Bilateral leg edema which improved. NEUROLOGICAL: Normal. LABORATORY DATA: Sodium 129, potassium 3.2, chloride 85, bicarb 24, BUN 45, creatinine 1.4, blood sugar is 119, calcium 8.8, phosphorus 3.7. The patient also has CBC, shows white count 7.5, hemoglobin 11.7, hematocrit 36.6, platelets 273. IMPRESSION AND PLAN: 1. Bilateral leg edema. Continue diuresis. 2. Congestive heart failure, diastolic heart failure. The patient is clinically stable. 3. Chronic renal insufficiency, chronic kidney disease. Continue current management. 4. Electrolyte abnormalities. Replacement of potassium and magnesium. We will monitor sodium. The patient also had hyponatremia on labs. 5. Morbid obesity. 6. Osteoarthritis. 7. Shoulder pain. The patient will need physical therapy rehabilitation. 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 Continue current therapy. Johnny Jones MD
--- NOTE | 2018-05-22 07:46 | CP.PCM.PN ---
Subjective - Date & Time of Evaluation Date of Evaluation: 05/22/18 Time of Evaluation: 06:50 - Subjective Subjective: Awake, Lying in bed, alert, no distress, feels okay Reason for consultation and follow up: Cardiac evaluation of congestive heart failure, admitted for decompensated CHF, history of non obstructive coronary artery disease. Seen and examined by me and Dr. Schneider Objective - Vital Signs/Intake and Output Vital Signs (last 24 hours): Temp Pulse Resp BP Pulse Ox 98.7 F 84 20 100/65 95 05/21/18 23:28 05/21/18 23:28 05/21/18 23:28 05/21/18 23:28 05/21/18 23:28 Intake and Output: 05/22/18 05/22/18 06:59 18:59 Intake Total 60 Balance 60 - Medications Medications: Current Medications Acetaminophen (Tylenol 325mg Tab) 650 mg PO Q6H PRN PRN Reason: Pain, Mild (1-3) Last Admin: 05/21/18 23:53 Dose: 650 mg Aspirin (Aspirin Chewable) 81 mg PO DAILY [facility] Last Admin: 05/21/18 10:27 Dose: 81 mg Atorvastatin Calcium (Lipitor) 10 mg PO DIN [facility] Last Admin: 05/21/18 17:20 Dose: 10 mg Clopidogrel Bisulfate (Plavix) 75 mg PO DAILY [facility] Last Admin: 05/21/18 10:27 Dose: 75 mg Duloxetine HCl (Cymbalta) 30 mg PO DAILY [facility] Last Admin: 05/21/18 10:26 Dose: 30 mg Enoxaparin Sodium (Lovenox) 30 mg SC DAILY [facility]; Protocol Last Admin: 05/21/18 10:26 Dose: 30 mg Ergocalciferol (Drisdol 50,000 Intl Units Cap) 1 cap PO Q7D [facility] Last Admin: 05/16/18 17:24 Dose: 1 cap Famotidine (Pepcid) 40 mg PO DAILY [facility] Last Admin: 05/21/18 10:28 Dose: 40 mg Ferrous Gluconate (Fergon) 324 mg PO TID [facility] Last Admin: 05/21/18 18:04 Dose: 324 mg Furosemide (Lasix) 40 mg IVP BID [facility] Last Admin: 05/21/18 18:03 Dose: 40 mg Gabapentin (Neurontin) 300 mg PO TID [facility]; Protocol Last Admin: 05/21/18 18:04 Dose: 300 mg Midodrine (Proamatine) 5 mg PO TID [facility] Last Admin: 05/21/18 18:04 Dose: 5 mg Non-Formulary Medication (Bisoprolol [Zebeta]) 2.5 mg PO DAILY [facility] Last Admin: 05/21/18 10:29 Dose: Not Given Oxybutynin Chloride (Ditropan Tab) 5 mg PO DAILY [facility] Last Admin: 05/21/18 10:26 Dose: 5 mg Vitamin B Complex/Vit C/Folic Acid (Nephro-Riley) 1 tab PO 0800 [facility] Last Admin: 05/21/18 09:28 Dose: 1 tab - Labs Labs: 05/21/18 07:30 05/21/18 07:30 - Constitutional Appears: Non-toxic, No Acute Distress - Head Exam Head Exam: NORMAL INSPECTION, NORMOCEPHALIC - Eye Exam Eye Exam: Normal appearance Pupil Exam: NORMAL ACCOMODATION - ENT Exam ENT Exam: Mucous Membranes Moist, Normal Exam - Respiratory Exam Respiratory Exam: Decreased Breath Sounds, Clear to Ausculation Bilateral, NORMAL BREATHING PATTERN - Cardiovascular Exam Cardiovascular Exam: +S1, +S2 - GI/Abdominal Exam GI & Abdominal Exam: Soft, Normal Bowel Sounds - Extremities Exam Extremities Exam: Full ROM Additional comments: 1-2+edema - Neurological Exam Neurological Exam: Alert, Awake, Oriented x3 - Psychiatric Exam Psychiatric exam: Normal Affect, Normal Mood - Skin Skin Exam: Dry, Normal Color, Warm Assessment and Plan - Assessment and Plan (Free Text) Assessment: A 72 year old female who came in to the ER due to bilateral leg edema.History includes congestive heart failure and hypertension, morbidly obese, chronic mariam al insufficency,non obstructive coronary artery disease. Admitted with decompensated diastolic dysfunction congestive heart failure. Stress test was done yesterday and normal results. LVEF 71%. Hyponatremia,Renal on consult. Podiatry on consult for heel ulcers. Left heel wound culture positive for Staph corynebacterium. Cardiac status stable. Plan: Denies shortness of breath, no distress Symptoms clinically improved Cardiac status stable Heart rate stable Blood pressure stable Renal on consult Podiatry on consult for heel ulcers On ASA 81 mg daily, Lipitor 10 mg daily, Plavix 75 mg daily, Lovenox 30 mg daily, Lasix 40 mg BID, Zaroxylyn 5 mg BID Midorine 5 mg TID Continue current treatment Continue current medications Physical therapy Will follow up Plan and treatment discussed with Dr. Schneider
[2018-05-22 08:37] LABS: CALCIUM 9.4 mg/dL (8.4-10.5)
[2018-05-22] MEDS: Multivitamin Vitamin B Complex (Nephro-Vite) Tab PO SCH (08:44)
[2018-05-22] MEDS: BISOPROLOL 2.5 MG PO SCH (10:40)
--- NOTE | 2018-05-22 12:39 | CP.PCM.PN ---
Subjective - Date & Time of Evaluation Date of Evaluation: 05/22/18 Time of Evaluation: 12:36 - Subjective Subjective: Nephrology Consultation Note: Assessment: Stable [facility] dCHF exacerbation with fluid overload Hypertensive Chronic Kidney Disease (I12.9) Chronic Kidney Disease (N18.3) Stage 3 with ? mg proteinuria (R80.9) Anemia (D64.9), morbid obesity hx of NSAIDs use hyperkalemia hyponatremia Plan No acute need for renal replacement therapy at this time. Renal function slowly worsening and hco3 trending up suggesting contraction alkolsis and overdiuresis. Will reduce lasix to daily instead of bid and if cr worse tomorrow would recommend d/c diuretics and give Hypertension control with meds as ordered. Maintain hemodynamics stable. Avoid hypotension. Patient not on ACEI/ARB due to hyperkalemia I/O not recorded overnight - not clear of amount of diuresis K improved will follow na w/ reduction in diuretic Dose meds/antibiotics for reduced GFR. Avoid fleets enema/magnesium based laxatives. Avoid nephrotoxins/NSAIDs/ iodinated contrast (unless needed emergently) Glycemic control. need to loose weight. Further work up/management as per primary team S: seen and examined no complaints Physical Examination: General Appearance: Comfortable, in no acute respiratory distress, co-operative . obese Vitals reviewed and noted as below Head; Atraumatic, normocephalic ENT: no ulcers no thrush. Tongue is midline. Oropharynx: no rash or ulcers. EYES: Pupils are equal, round and reactive to light accommodation. Eye muscles and extraocular movement intact. Sclera is anicteric. Neck; supple no lymphadenopathy, no thyromegaly or bruit Lungs: Normal respiratory rate/effort. Breath sounds bilateral clearer Heart: Normal rate. s1s2 normal. No rub or gallop. Extremities: trace/1+ edema. No varicose veins Neurological: Patient is alert, awake and oriented to person, place and time. No focal deficit. Strength bilateral appropriate and equal Skin: Warm and dry. Normal turgor. No rash. Palpitation: Normal elasticity for age Abdomen: Abdomen is soft. Bowel sounds +. There is no abdominal tenderness, no guarding/rigidity no organomegaly Psych: normal insight and normal affect/mood MSK: no joint tenderness or swelling. Digits and nails normal, no deformity : kidney or bladder not palpable Labs/imaging reviewed. Past medical history, past surgical history, family history, social history, allergy reviewed and noted as below Family hx: no hx of CKD. Rest non-contributory Objective - Vital Signs/Intake and Output Vital Signs (last 24 hours): Temp Pulse Resp BP Pulse Ox 97.8 F 86 20 162/78 H 99 05/22/18 06:00 05/22/18 06:00 05/22/18 06:00 05/22/18 06:00 05/22/18 06:00 Intake and Output: 05/22/18 05/22/18 06:59 18:59 Intake Total 60 Balance 60 - Medications Medications: Current Medications Acetaminophen (Tylenol 325mg Tab) 650 mg PO Q6H PRN PRN Reason: Pain, Mild (1-3) Last Admin: 05/21/18 23:53 Dose: 650 mg Aspirin (Aspirin Chewable) 81 mg PO DAILY [facility] Last Admin: 05/21/18 10:27 Dose: 81 mg Atorvastatin Calcium (Lipitor) 10 mg PO DIN [facility] Last Admin: 05/21/18 17:20 Dose: 10 mg Clopidogrel Bisulfate (Plavix) 75 mg PO DAILY [facility] Last Admin: 05/21/18 10:27 Dose: 75 mg Duloxetine HCl (Cymbalta) 30 mg PO DAILY [facility] Last Admin: 05/21/18 10:26 Dose: 30 mg Enoxaparin Sodium (Lovenox) 30 mg SC DAILY [facility]; Protocol Last Admin: 05/21/18 10:26 Dose: 30 mg Ergocalciferol (Drisdol 50,000 Intl Units Cap) 1 cap PO Q7D [facility] Last Admin: 05/16/18 17:24 Dose: 1 cap Famotidine (Pepcid) 40 mg PO DAILY [facility] Last Admin: 05/21/18 10:28 Dose: 40 mg Ferrous Gluconate (Fergon) 324 mg PO TID [facility] Last Admin: 05/21/18 18:04 Dose: 324 mg Furosemide (Lasix) 40 mg IVP BID [facility] Last Admin: 05/21/18 18:03 Dose: 40 mg Gabapentin (Neurontin) 300 mg PO TID [facility]; Protocol Last Admin: 05/21/18 18:04 Dose: 300 mg Midodrine (Proamatine) 5 mg PO TID [facility] Last Admin: 05/21/18 18:04 Dose: 5 mg Non-Formulary Medication (Bisoprolol [Zebeta]) 2.5 mg PO DAILY [facility] Last Admin: 05/21/18 10:29 Dose: Not Given Oxybutynin Chloride (Ditropan Tab) 5 mg PO DAILY [facility] Last Admin: 05/21/18 10:26 Dose: 5 mg Vitamin B Complex/Vit C/Folic Acid (Nephro-Riley) 1 tab PO 0800 [facility] Last Admin: 05/22/18 08:44 Dose: 1 tab - Labs Labs: 05/21/18 07:30 05/22/18 08:05
--- NOTE | 2018-05-22 13:21 | PN ---
DATE: 05/22/2018 REASON FOR CONSULTATION: Followup cardiac evaluation, admitted with decompensated congestive heart failure, history of nonobstructive coronary artery disease, and negative stress test. This note is in addition to the one dictated by nurse practitioner, Manisha Villareal. SUBJECTIVE: The patient denies any chest pain, shortness of breath, or any palpitations. In summary, this is a 72-year-old female, obese, with past medical history significant for renal insufficiency, history of nonobstructive coronary artery disease, status post cardiac catheterization [address] Moore, admitted with decompensated congestive heart failure, possibly secondary to diastolic dysfunction . The patient's underwent a stress test with normal ejection fraction of 71%. The patient has hyponatremia, hypokalemia, and renal disease being followed by medical reimbursement specialist, still the patient is hyponatremic. We will follow with you. CVS status is stable. Continue baby aspirin. Continue supplemental potassium. Continue gentle diuretic as per medical reimbursement specialist. Continue atorvastatin. Continue DVT prophylaxis. We will follow with you. Thank you Dr Jones for the opportunity in taking care of this patient, Jaden Martin. Shari Schneider MD
[2018-05-22] MEDS: Enoxaparin 30 mg Syringe SC SCH (14:27)
--- NOTE | 2018-05-22 14:57 | CP.PCM.PN ---
<Devaughn Hallman - Last Filed: 05/22/18 16:01> Subjective - Date & Time of Evaluation Date of Evaluation: 05/22/18 Time of Evaluation: 14:55 - Subjective Subjective: Podiatry progress note for Dr. Ocasio 72F patient seen and evaluated for bilateral lower extremity edema and L heel ulceration. Patient resting in bed comfortably and in NAD. States pain is controlled. No acute events overnight. Denies N/V/F/CP. Has no other acute complaints. Objective - Vital Signs/Intake and Output Vital Signs (last 24 hours): Temp Pulse Resp BP Pulse Ox 97.8 F 86 20 110/67 99 05/22/18 06:00 05/22/18 06:00 05/22/18 06:00 05/22/18 10:48 05/22/18 06:00 Intake and Output: 05/22/18 05/22/18 06:59 18:59 Intake Total 60 Balance 60 - Medications Medications: Current Medications Acetaminophen (Tylenol 325mg Tab) 650 mg PO Q6H PRN PRN Reason: Pain, Mild (1-3) Last Admin: 05/21/18 23:53 Dose: 650 mg Aspirin (Aspirin Chewable) 81 mg PO DAILY [facility] Last Admin: 05/22/18 10:40 Dose: 81 mg Atorvastatin Calcium (Lipitor) 10 mg PO DIN [facility] Last Admin: 05/21/18 17:20 Dose: 10 mg Clopidogrel Bisulfate (Plavix) 75 mg PO DAILY [facility] Last Admin: 05/22/18 10:40 Dose: 75 mg Duloxetine HCl (Cymbalta) 30 mg PO DAILY [facility] Last Admin: 05/22/18 10:40 Dose: 30 mg Enoxaparin Sodium (Lovenox) 30 mg SC DAILY [facility]; Protocol Last Admin: 05/22/18 14:27 Dose: 30 mg Ergocalciferol (Drisdol 50,000 Intl Units Cap) 1 cap PO Q7D [facility] Last Admin: 05/16/18 17:24 Dose: 1 cap Famotidine (Pepcid) 40 mg PO DAILY [facility] Last Admin: 05/22/18 10:40 Dose: 40 mg Ferrous Gluconate (Fergon) 324 mg PO TID [facility] Last Admin: 05/22/18 14:26 Dose: 324 mg Furosemide (Lasix) 40 mg IVP DAILY [facility] Gabapentin (Neurontin) 300 mg PO TID [facility]; Protocol Last Admin: 05/22/18 14:25 Dose: 300 mg Midodrine (Proamatine) 5 mg PO TID [facility] Last Admin: 05/22/18 14:29 Dose: 5 mg Non-Formulary Medication (Bisoprolol [Zebeta]) 2.5 mg PO DAILY [facility] Last Admin: 05/22/18 10:40 Dose: Not Given Oxybutynin Chloride (Ditropan Tab) 5 mg PO DAILY [facility] Last Admin: 05/22/18 10:40 Dose: 5 mg Vitamin B Complex/Vit C/Folic Acid (Nephro-Riley) 1 tab PO 0800 [facility] Last Admin: 05/22/18 08:44 Dose: 1 tab - Labs Labs: 05/21/18 07:30 05/22/18 08:05 - Constitutional Appears: Well, Non-toxic, No Acute Distress - Head Exam Head Exam: ATRAUMATIC, NORMOCEPHALIC - Extremities Exam Additional comments: Vascular: DP/PT nonpalpable secondary to edema, CFT < 3 seconds to all digits, T G warm to cool, pedal hair absent, +2 pitting edema noted pretibial perimalleolar and dorsum of the foot b/l Ortho: Pain upon palpation to b/l legs, no pain with calf compression Neuro: Gross and protective sensation intact Derm: Ulceration noted to the lateral aspect of the left posterior heel, irregular border with fibrogranular base, no drainage, no malodor, no tunneling or tracking noted, no other open lesions, xerosis appreciated phani-wound. Bullae formation appreciated to the inferior 1/3 of R leg - Neurological Exam Neurological Exam: Alert, Awake, Oriented x3 - Psychiatric Exam Psychiatric exam: Normal Affect, Normal Mood Assessment and Plan - Assessment and Plan (Free Text) Assessment: 72F with bilateral lower extremity edema and L heel ulceration, resolving Plan: Patient seen and evaluated Discussed in detail with Dr. Ocasio Afebrile, absent leukocytosis LE venous doppler reviewed; no DVT Left foot culture: staph auereus and corynebacterium L foot x-ray; no acute fracture or dislocation LE arterial duplex taken; relatively abnormal JAKY/PVR at rest Local wound care: cleansed with sterile saline, L heel dressed with optifoam, R anterior leg bullae dressed with optifoam Physical therapy ordered for Darco heel relief shoe Multipodus boots ordered and to be worn at all times while in bed Will continue to follow <Lyudmila Ocasio - Last Filed: 05/22/18 18:05> Objective - Vital Signs/Intake and Output Vital Signs (last 24 hours): Temp Pulse Resp BP Pulse Ox 98.2 F 62 18 118/73 98 05/22/18 14:00 05/22/18 14:00 05/22/18 14:00 05/22/18 14:00 05/22/18 14:00 Intake and Output: 05/22/18 05/22/18 06:59 18:59 Intake Total 60 Balance 60 - Medications Medications: Current Medications Acetaminophen (Tylenol 325mg Tab) 650 mg PO Q6H PRN PRN Reason: Pain, Mild (1-3) Last Admin: 05/21/18 23:53 Dose: 650 mg Aspirin (Aspirin Chewable) 81 mg PO DAILY [facility] Last Admin: 05/22/18 10:40 Dose: 81 mg Atorvastatin Calcium (Lipitor) 10 mg PO DIN [facility] Last Admin: 05/21/18 17:20 Dose: 10 mg Clopidogrel Bisulfate (Plavix) 75 mg PO DAILY [facility] Last Admin: 05/22/18 10:40 Dose: 75 mg Duloxetine HCl (Cymbalta) 30 mg PO DAILY [facility] Last Admin: 05/22/18 10:40 Dose: 30 mg Enoxaparin Sodium (Lovenox) 30 mg SC DAILY [facility]; Protocol Last Admin: 05/22/18 14:27 Dose: 30 mg Ergocalciferol (Drisdol 50,000 Intl Units Cap) 1 cap PO Q7D [facility] Last Admin: 05/16/18 17:24 Dose: 1 cap Famotidine (Pepcid) 40 mg PO DAILY [facility] Last Admin: 05/22/18 10:40 Dose: 40 mg Ferrous Gluconate (Fergon) 324 mg PO TID [facility] Last Admin: 05/22/18 14:26 Dose: 324 mg Furosemide (Lasix) 40 mg IVP DAILY [facility] Gabapentin (Neurontin) 300 mg PO TID [facility]; Protocol Last Admin: 05/22/18 14:25 Dose: 300 mg Midodrine (Proamatine) 5 mg PO TID [facility] Last Admin: 05/22/18 14:29 Dose: 5 mg Non-Formulary Medication (Bisoprolol [Zebeta]) 2.5 mg PO DAILY [facility] Last Admin: 05/22/18 10:40 Dose: Not Given Oxybutynin Chloride (Ditropan Tab) 5 mg PO DAILY [facility] Last Admin: 05/22/18 10:40 Dose: 5 mg Vitamin B Complex/Vit C/Folic Acid (Nephro-Riley) 1 tab PO 0800 [facility] Last Admin: 05/22/18 08:44 Dose: 1 tab - Labs Labs: 05/21/18 07:30 05/22/18 08:05 Attending/Attestation - Attestation I have personally seen and examined this patient.: Yes I have fully participated in the care of the patient.: Yes I have reviewed all pertinent clinical information, including history, physical exam and plan: Yes
--- NOTE | 2018-05-23 01:22 | PN ---
DATE: 05/22/2018 SUBJECTIVE: She is doing well. Her leg edema is better, seen by sql ssrs developer, waiting for rehabilitation. PHYSICAL EXAMINATION VITAL SIGNS: On 05/22/2018, temperature 98.2, heart rate 62, blood pressure 118/73, respirations 18, 98% sat. HEAD AND NECK: Normal. No JVD. No thyromegaly. CHEST: Clear bilaterally. CARDIAC: First sounds and second sounds are normal. ABDOMEN: Obese, nontender. EXTREMITIES: Edema improved, +1. NEUROLOGIC: Normal. The patient has deformed ankle and she has some abrasion right tibial area and left heel small ulcerations. ASSESSMENT AND PLAN: 1. Generalized weakness, gait disorder, , 2. Contraction alkalosis. The patient has creatinine of 1.6 and BUN 46 higher than admissions. We will discuss with sql ssrs developer, hold Lasix for 24 hours and repeat labs in the morning and probably change it to p.o. pills in the morning. 3. Hypertension, stable. 4. Left shoulder pain. X-ray was normal. We will continue Tylenol p.r.n. The patient is getting midodrine p.r.n. for low blood pressures. Continue Plavix, Pepcid, Neurontin, multivitamin, Lovenox 30, Lipitor 10, Lasix 40 p.o. starting tomorrow, we will hold this for 24 hours, and iron pills, vitamin D, Ditropan 5 mg daily, Cymbalta 30 mg once a day, aspirin 81 mg once a day. Continue current therapy. Johnny Jones MD
--- NOTE | 2018-05-23 07:16 | CP.PCM.PN ---
Subjective - Date & Time of Evaluation Date of Evaluation: 05/23/18 Time of Evaluation: 06:20 - Subjective Subjective: Feels okay, Awake, Lying in bed, alert, no distress Reason for consultation and follow up: Cardiac evaluation of congestive heart failure, admitted for decompensated CHF, history of non obstructive coronary artery disease. Seen and examined by me and Dr. Schneider Objective - Vital Signs/Intake and Output Vital Signs (last 24 hours): Temp Pulse Resp BP Pulse Ox 98.6 F 76 18 125/58 L 98 05/22/18 21:29 05/22/18 21:29 05/22/18 21:29 05/22/18 21:29 05/22/18 21:29 Intake and Output: 05/23/18 05/23/18 06:59 18:59 Intake Total 120 Balance 120 - Medications Medications: Current Medications Acetaminophen (Tylenol 325mg Tab) 650 mg PO Q6H PRN PRN Reason: Pain, Mild (1-3) Last Admin: 05/22/18 18:51 Dose: 650 mg Aspirin (Aspirin Chewable) 81 mg PO DAILY [facility] Last Admin: 05/22/18 10:40 Dose: 81 mg Atorvastatin Calcium (Lipitor) 10 mg PO DIN [facility] Last Admin: 05/22/18 18:50 Dose: 10 mg Clopidogrel Bisulfate (Plavix) 75 mg PO DAILY [facility] Last Admin: 05/22/18 10:40 Dose: 75 mg Duloxetine HCl (Cymbalta) 30 mg PO DAILY [facility] Last Admin: 05/22/18 10:40 Dose: 30 mg Enoxaparin Sodium (Lovenox) 30 mg SC DAILY [facility]; Protocol Last Admin: 05/22/18 14:27 Dose: 30 mg Ergocalciferol (Drisdol 50,000 Intl Units Cap) 1 cap PO Q7D [facility] Last Admin: 05/16/18 17:24 Dose: 1 cap Famotidine (Pepcid) 40 mg PO DAILY [facility] Last Admin: 05/22/18 10:40 Dose: 40 mg Ferrous Gluconate (Fergon) 324 mg PO TID [facility] Last Admin: 05/22/18 18:49 Dose: 324 mg Furosemide (Lasix) 40 mg IVP DAILY [facility] Gabapentin (Neurontin) 300 mg PO TID [facility]; Protocol Last Admin: 05/22/18 18:49 Dose: 300 mg Midodrine (Proamatine) 5 mg PO TID [facility] Last Admin: 05/22/18 18:49 Dose: 5 mg Non-Formulary Medication (Bisoprolol [Zebeta]) 2.5 mg PO DAILY [facility] Last Admin: 05/22/18 10:40 Dose: Not Given Oxybutynin Chloride (Ditropan Tab) 5 mg PO DAILY [facility] Last Admin: 05/22/18 10:40 Dose: 5 mg Vitamin B Complex/Vit C/Folic Acid (Nephro-Riley) 1 tab PO 0800 [facility] Last Admin: 05/22/18 08:44 Dose: 1 tab - Labs Labs: 05/21/18 07:30 05/22/18 08:05 - Constitutional Appears: Non-toxic, No Acute Distress - Head Exam Head Exam: NORMAL INSPECTION, NORMOCEPHALIC - Eye Exam Eye Exam: Normal appearance Pupil Exam: NORMAL ACCOMODATION - ENT Exam ENT Exam: Mucous Membranes Moist, Normal Exam - Respiratory Exam Respiratory Exam: Decreased Breath Sounds, Clear to Ausculation Bilateral, NORMAL BREATHING PATTERN - Cardiovascular Exam Cardiovascular Exam: +S1, +S2 - GI/Abdominal Exam GI & Abdominal Exam: Soft, Normal Bowel Sounds - Extremities Exam Extremities Exam: Full ROM Additional comments: 2+edema - Neurological Exam Neurological Exam: Alert, Awake, Oriented x3 - Psychiatric Exam Psychiatric exam: Normal Affect, Normal Mood - Skin Skin Exam: Dry, Normal Color, Warm Assessment and Plan - Assessment and Plan (Free Text) Assessment: A 72 year old female who came in to the ER due to bilateral leg edema.History includes congestive heart failure and hypertension, morbidly obese, chronic renal insufficency,non obstructive coronary artery disease. Admitted with decompensated diastolic dysfunction congestive heart failure. Stress test was done yesterday and normal results. LVEF 71%. Hyponatremia,renal insufficiency,Renal on consult. Podiatry on consult for heel ulcers. Left heel wound culture positive for Staph corynebacterium.Cardiac status stable. Clinically improved. Plan: No distress, feels okay Cardiac status stable Heart rate stable Blood pressure stable Renal on consult Podiatry on consult for heel ulcers On ASA 81 mg daily, Lipitor 10 mg daily, Plavix 75 mg daily, Lovenox 30 mg daily, Lasix 40 mg BID, Zaroxylyn 5 mg BID Midorine 5 mg TID Continue current treatment Continue current medications Physical therapy Will follow up Plan and treatment discussed with Dr. Schneider
--- NOTE | 2018-05-23 08:31 | PN ---
DATE: 05/21/2018 REASON FOR CONSULTATION AND FOLLOWUP: Cardiac evaluation, congestive heart failure, admitted with decompensated congestive heart failure, history of nonobstructive coronary artery disease, status post cardiac catheterization in the past, status post recent stress test negative. SUBJECTIVE: The patient denies any chest pain, shortness of breath, or any palpitation. This note is in addition to dictated by the nurse practitioner, Manihsa Villareal. LABORATORY DATA: Hemoglobin is stable at 11.3, hematocrit 36.6, and platelet count 273. Chemistry shows sodium 129, potassium 3.2, chloride 85, bicarb 34, anion gap of 13, BUN 45, and creatinine 1.4. IMPRESSION: A 72-year-old female with past medical history of obesity, leg edema, history of congestive heart failure in the past with diastolic dysfunction, hypertension, morbid obesity, renal insufficiency, nonobstructive coronary artery disease, status post cardiac catheterization three years ago by Dr. Moore. Recent stress test was negative. RECOMMENDATIONS: Supplement potassium. Continue diuretics as per Nephrology. Continue DVT prophylaxis. We will follow with you. CVS status is stable. We will give two doses of K Dur one stat now, one at 1 p.m. We will repeat the blood workup in the morning. The patient is stable from Cardiology point of view, he will be discharged. Thank you Dr. Jones for providing us the opportunity in taking care of the patient, Jaden Martin. Shari Schneider MD [facility]
[2018-05-23] MEDS: BISOPROLOL 2.5 MG PO SCH (10:00)
[2018-05-23] MEDS: Enoxaparin 30 mg Syringe SC SCH (10:28)
[2018-05-23] MEDS: Multivitamin Vitamin B Complex (Nephro-Vite) Tab PO SCH (10:29)
[2018-05-23 11:04] LABS: CALCIUM 9.6 mg/dL (8.4-10.5)
--- NOTE | 2018-05-23 12:58 | CP.PCM.PN ---
Subjective - Date & Time of Evaluation Date of Evaluation: 05/23/18 Time of Evaluation: 12:56 - Subjective Subjective: Nephrology Consultation Note: Assessment: Stable [place] dCHF exacerbation with fluid overload Hypertensive Chronic Kidney Disease (I12.9) Chronic Kidney Disease (N18.3) Stage 3 with ? mg proteinuria (R80.9) Anemia (D64.9), morbid obesity hx of NSAIDs use hyperkalemia hyponatremia Plan No acute need for renal replacement therapy at this time renal fxn stabalized w/ reduction to daily dose of diuretic Hypertension control with meds as ordered. Maintain hemodynamics stable. Avoid hypotension. Patient not on ACEI/ARB due to hyperkalemia I/O not recorded overnight - not clear of amount of diuresis k stable free water fluid resctirction for hyponatremia Dose meds/antibiotics for reduced GFR. Avoid fleets enema/magnesium based laxatives. Avoid nephrotoxins/NSAIDs/ iodinated contrast (unless needed emergently) Glycemic control. need to loose weight. Further work up/management as per primary team S: seen and examined no complaints Physical Examination: General Appearance: Comfortable, in no acute respiratory distress, co-operative . obese Vitals reviewed and noted as below Head; Atraumatic, normocephalic ENT: no ulcers no thrush. Tongue is midline. Oropharynx: no rash or ulcers. EYES: Pupils are equal, round and reactive to light accommodation. Eye muscles and extraocular movement intact. Sclera is anicteric. Neck; supple no lymphadenopathy, no thyromegaly or bruit Lungs: Normal respiratory rate/effort. Breath sounds clear anteriorly Heart: Normal rate. s1s2 normal. No rub or gallop. Extremities: trace/1+ edema. No varicose veins Neurological: Patient is alert, awake and oriented to person, place and time. No focal deficit. Strength bilateral appropriate and equal Skin: Warm and dry. Normal turgor. No rash. Palpitation: Normal elasticity for age Abdomen: Abdomen is soft. Bowel sounds +. There is no abdominal tenderness, no guarding/rigidity no organomegaly Psych: normal insight and normal affect/mood MSK: no joint tenderness or swelling. Digits and nails normal, no deformity : kidney or bladder not palpable Labs/imaging reviewed. Past medical history, past surgical history, family h Objective - Vital Signs/Intake and Output Vital Signs (last 24 hours): Temp Pulse Resp BP Pulse Ox 97.6 F 73 17 115/62 98 05/23/18 06:00 05/23/18 06:00 05/23/18 06:00 05/23/18 10:27 05/23/18 06:00 Intake and Output: 05/23/18 05/23/18 06:59 18:59 Intake Total 120 120 Balance 120 120 - Medications Medications: Current Medications Acetaminophen (Tylenol 325mg Tab) 650 mg PO Q6H PRN PRN Reason: Pain, Mild (1-3) Last Admin: 05/22/18 18:51 Dose: 650 mg Aspirin (Aspirin Chewable) 81 mg PO DAILY [facility] Last Admin: 05/23/18 10:29 Dose: 81 mg Atorvastatin Calcium (Lipitor) 10 mg PO DIN [facility] Last Admin: 05/22/18 18:50 Dose: 10 mg Clopidogrel Bisulfate (Plavix) 75 mg PO DAILY [facility] Last Admin: 05/23/18 10:29 Dose: 75 mg Duloxetine HCl (Cymbalta) 30 mg PO DAILY [facility] Last Admin: 05/23/18 10:29 Dose: 30 mg Enoxaparin Sodium (Lovenox) 30 mg SC DAILY [facility]; Protocol Last Admin: 05/23/18 10:28 Dose: 30 mg Ergocalciferol (Drisdol 50,000 Intl Units Cap) 1 cap PO Q7D [facility] Last Admin: 05/16/18 17:24 Dose: 1 cap Famotidine (Pepcid) 40 mg PO DAILY [facility] Last Admin: 05/23/18 10:28 Dose: 40 mg Ferrous Gluconate (Fergon) 324 mg PO TID [facility] Last Admin: 05/23/18 10:29 Dose: 324 mg Furosemide (Lasix) 40 mg IVP DAILY [facility] Last Admin: 05/23/18 10:27 Dose: 40 mg Gabapentin (Neurontin) 300 mg PO TID [facility]; Protocol Last Admin: 05/23/18 10:29 Dose: 300 mg Midodrine (Proamatine) 5 mg PO TID [facility] Last Admin: 05/23/18 10:28 Dose: 5 mg Non-Formulary Medication (Bisoprolol [Zebeta]) 2.5 mg PO DAILY [facility] Last Admin: 05/22/18 10:40 Dose: Not Given Oxybutynin Chloride (Ditropan Tab) 5 mg PO DAILY [facility] Last Admin: 05/23/18 10:28 Dose: 5 mg Vitamin B Complex/Vit C/Folic Acid (Nephro-Riley) 1 tab PO 0800 [facility] Last Admin: 05/23/18 10:29 Dose: 1 tab - Labs Labs: 05/21/18 07:30 05/23/18 10:49
[2018-05-23 15:17] VITALS: BP 143/90; PULSE 113; RESP 20; TEMP 98.3; O2SAT 98
[2018-05-23] MEDS: Ergocalciferol 50,000 Intl Units Cap PO SCH (15:24)
--- NOTE | 2018-05-23 15:56 | CP.PCM.PN ---
Subjective - Date & Time of Evaluation Date of Evaluation: 05/23/18 Time of Evaluation: 15:00 - Subjective Subjective: pt seen at bedside for f/u left heel wound; pt sleeping comfortably and did not wake during dressing change; dressing clean and intact with minimal drainage Objective - Vital Signs/Intake and Output Vital Signs (last 24 hours): Temp Pulse Resp BP Pulse Ox 98.3 F 113 H 20 143/90 98 05/23/18 14:00 05/23/18 14:00 05/23/18 14:00 05/23/18 14:00 05/23/18 14:00 Intake and Output: 05/23/18 05/23/18 06:59 18:59 Intake Total 120 120 Balance 120 120 - Medications Medications: Current Medications Acetaminophen (Tylenol 325mg Tab) 650 mg PO Q6H PRN PRN Reason: Pain, Mild (1-3) Last Admin: 05/22/18 18:51 Dose: 650 mg Aspirin (Aspirin Chewable) 81 mg PO DAILY [facility] Last Admin: 05/23/18 10:29 Dose: 81 mg Atorvastatin Calcium (Lipitor) 10 mg PO DIN [facility] Last Admin: 05/22/18 18:50 Dose: 10 mg Clopidogrel Bisulfate (Plavix) 75 mg PO DAILY [facility] Last Admin: 05/23/18 10:29 Dose: 75 mg Duloxetine HCl (Cymbalta) 30 mg PO DAILY [facility] Last Admin: 05/23/18 10:29 Dose: 30 mg Enoxaparin Sodium (Lovenox) 30 mg SC DAILY [facility]; Protocol Last Admin: 05/23/18 10:28 Dose: 30 mg Ergocalciferol (Drisdol 50,000 Intl Units Cap) 1 cap PO Q7D [facility] Last Admin: 05/23/18 15:24 Dose: 1 cap Famotidine (Pepcid) 40 mg PO DAILY [facility] Last Admin: 05/23/18 10:28 Dose: 40 mg Ferrous Gluconate (Fergon) 324 mg PO TID [facility] Last Admin: 05/23/18 15:24 Dose: 324 mg Furosemide (Lasix) 40 mg IVP DAILY [facility] Last Admin: 05/23/18 10:27 Dose: 40 mg Gabapentin (Neurontin) 300 mg PO TID [facility]; Protocol Last Admin: 05/23/18 15:24 Dose: 300 mg Midodrine (Proamatine) 5 mg PO TID [facility] Last Admin: 05/23/18 15:25 Dose: 5 mg Non-Formulary Medication (Bisoprolol [Zebeta]) 2.5 mg PO DAILY [facility] Last Admin: 05/22/18 10:40 Dose: Not Given Oxybutynin Chloride (Ditropan Tab) 5 mg PO DAILY [facility] Last Admin: 05/23/18 10:28 Dose: 5 mg Vitamin B Complex/Vit C/Folic Acid (Nephro-Riley) 1 tab PO 0800 [facility] Last Admin: 05/23/18 10:29 Dose: 1 tab - Labs Labs: 05/21/18 07:30 05/23/18 10:49 - Constitutional Appears: Well, No Acute Distress - Extremities Exam Extremities Exam: Normal Capillary Refill, Pedal Edema. absent: Calf Tenderness, Joint Swelling Additional comments: NVSU - wound on the left heel is stable with no sinus tract no cellulitis no fluctuance and no underlying structures seen in the wound; the tissue is a mix of fibrous and granulation tissue with no slough adherent to the wound bed minimal drainage noted; pt with bilateral edema and lipoedemia Assessment and Plan - Assessment and Plan (Free Text) Assessment: stage 3 left heel wound Plan: cont with local care; awaiting heel relief shoe; pt may full weightbear once she has the shoes
--- NOTE | 2018-05-23 19:15 | PN ---
DATE: 05/23/2018 SEX OF THE PATIENT: Female. AGE OF THE PATIENT: 72. REASON FOR CONSULTATION: Follow up cardiac evaluation, congestive heart failure, admitted with decompensated congestive heart failure, nonobstructive coronary artery disease, and negative stress test. SUBJECTIVE: The patient denies any chest pain, shortness of breath, or any palpitations. This note is in addition to the one dictated by nurse practitioner, Manisha Villareal. The patient is hemodynamically stable. OBJECTIVE: VITAL SIGNS: Temperature afebrile, heart rate 73, blood pressure 115/62. SIGNIFICANT LABORATORY DATA: Hemoglobin 11.5, hematocrit 36.6, BUN 40, and creatinine 1.5. Sodium 129. ASSESSMENT: The patient is a 72-year-old female, came to the emergency room with bilateral leg edema, history of congestive heart failure, diastolic dysfunction, hypertension, morbid obesity, and renal insufficiency. Recent stress test negative, history of cardiac catheterization 3 years ago was normal. RECOMMENDATIONS: Cardiac status is stable. Continue aspirin, continue Lipitor, continue Plavix. Reason, not sure why the patient is on Plavix, continue for now. Continue Lovenox. Continue Lasix. Continue Zaroxolyn. Monitor electrolytes. CVS status is stable. Follow up Nephrology. We will sign off and glad to follow p.r.n. Thank you Dr Jones for providing the opportunity in taking care of the patient, Jaden Martin. Shari Schneider MD
--- NOTE | 2018-05-25 00:18 | DS ---
CHIEF COMPLAINT: The patient was admitted with edema of both lower extremities up to the knee. The patient also had left heel ulcers and she was seen by Podiatry, Dr. Ocasio. Also patient was seen by kidney doctor, Dr. Steve Alvarez. The patient was given Lasix and her BUN and creatinine went up to the level of 1.8. We will start holding Lasix and planning to give p.o. Lasix once a day. Her edema of lower extremities has improved significantly. She complained of left shoulder x-ray, which was negative, and was given some physical therapy. Patient is going to be discharged for rehabilitation unit to be followed as outpatient. Patient is hemodynamically stable. PHYSICAL EXAMINATION: VITAL SIGNS: Temperature 98.3, heart rate 73, blood pressure 115/62, respirations 20, saturation 98%. HEAD AND NECK: Normal. No JVD. No thyromegaly. CHEST: Clear bilaterally. CARDIAC: First sound and second sound normal. ABDOMEN: Soft, obese, nontender. EXTREMITIES: Edema is improved and tiny ulcer on the right chin and also left heel. NEUROLOGIC: Moves all extremities. Her foot has deformity and she has gait disorder. LABORATORY STUDIES: She has serum immunofixation, which is negative. She has white count 7.5, hemoglobin 11.7, hematocrit 36.6, platelets 273. Chemistry; sodium 129, potassium 3.6, chloride 86, bicarb 35, BUN 48, creatinine is 1.5; came down, and her blood sugar is 156, before that it was 115. Magnesium 2.1. DISCHARGE DIAGNOSES: 1. Bilateral leg edema, continue Lasix p.o. once a day and keep leg elevated. 2. Morbid obesity with weight-related problem including knee and walking problem. 3. Gait disorder. 4. Left heel ulcerations. 5. Chronic renal insufficiency. 6. Hypotension, we will decrease midodrine to 2.5 mg t.i.d. 7. Anemia, chronic. 8. Hypertension. PLAN: Continue Zebeta 2.5 mg daily, Lasix 20 mg daily, lovastatin 20 mg daily, Tylenol, Neurontin 300 mg t.i.d., Pepcid 40 mg p.o. daily, Cymbalta 30 mg daily, Plavix 75 mg, aspirin 81 mg, Ditropan 5 mg, Zestril was on hold, no Zestril, and ProAmatine 2.5 mg t.i.d., Lasix 40 mg p.o. daily will be started after hold Lasix one day. Continue vitamin D, continue Fergon iron and follow up in rehab unit. Johnny Jones MD
== END 2018-05-23 18:30 | DRG 544 ==
LOC: ED 16:11 → ERH 19:08 → 2RSO 23:09 → 5RNO 05-19 02:21
PROVIDERS: ADMIT Internal Medicine; ATTEND Internal Medicine
DX: I13.0 Hypertensive heart and chronic kidney disease with heart failure and stage 1 through stage 4 chronic kidney disease, or unspecified chronic kidney disease (principal); I50.33 Acute on chronic diastolic (congestive) heart failure; N17.9 Acute kidney failure, unspecified; N18.3 Chronic kidney disease, stage 3 (moderate); E87.5 Hyperkalemia; L97.429 Non-pressure chronic ulcer of left heel and midfoot with unspecified severity; R32 Unspecified urinary incontinence; J44.9 Chronic obstructive pulmonary disease, unspecified; E87.1 Hypo-osmolality and hyponatremia; E87.3 Alkalosis; E87.6 Hypokalemia; I08.1 Rheumatic disorders of both mitral and tricuspid valves; I95.9 Hypotension, unspecified; I25.10 Atherosclerotic heart disease of native coronary artery without angina pectoris; G62.9 Polyneuropathy, unspecified; M17.0 Bilateral primary osteoarthritis of knee; M47.9 Spondylosis, unspecified; G89.29 Other chronic pain; E78.00 Pure hypercholesterolemia, unspecified; D64.9 Anemia, unspecified; E66.01 Morbid (severe) obesity due to excess calories; I45.10 Unspecified right bundle-branch block; K21.9 Gastro-esophageal reflux disease without esophagitis; B95.7 Other staphylococcus as the cause of diseases classified elsewhere; Z96.652 Presence of left artificial knee joint; M54.9 Dorsalgia, unspecified; M25.512 Pain in left shoulder; I25.2 Old myocardial infarction; Z68.42 Body mass index [BMI] 45.0-49.9, adult; Z79.82 Long term (current) use of aspirin; Z79.02 Long term (current) use of antithrombotics/antiplatelets